=== PATIENT | male | born 1965 | race Caucasian/White ===

== ENCOUNTER 2020-02-21 07:39 | Emergency (ER) | payer SELFPAY ==
--- NOTE | 2020-02-21 07:44 | XR_ITS ---
WS: [id number] PORTABLE CHEST HISTORY: cough/congestion COMPARISON: 04/28/2008 Lungs are clear and well expanded. No pleural effusion or pneumothorax. Cardiac size: Normal. Mediastinum/Aorta: Normal mediastinum. No osseous abnormality seen. XR/XR chest 1V portable [id number] IMPRESSION: Unremarkable portable chest.
--- NOTE | 2020-02-21 07:45 | W.ED.URI ---
HPI - URI/Sore Throat General: Chief Complaint: Upper Respiratory Infection Stated Complaint: cough/sent from work to be tested Time Seen by Provider: 02/21/20 07:44 Source: patient Mode of arrival: ambulatory Limitations: no limitations History of Present Illness: HPI Narrative: Patient is a 54-year-old male who presents to ED today with complaints of cough and congestion over the past 3 to 4 days. He has not been running fevers. He reports feeling short of breath with exertion but seems to be okay at rest. When asked about sick contacts he states he has 2 grandchildren that have been sick with URI symptoms. Patient is an everyday smoker. He has no medical conditions that he is aware of although admittedly does not routinely see a medical provider. He reports his cough produces a green phlegm. He has not had any recent travel. MD elicited complaint: cough and nasal congestion Onset (ago): day(s) Consistency: intermittent Description of mucous: green Able to tolerate fluids by mouth: Yes Exacerbating factors: exertion Relieving factors: rest Context: sick contacts (grandchildren) Associated symptoms: Reports nasal congestion and sinus pain; Deny abdominal pain, chills, chest pain, diarrhea, ear or mastoid pain, fever(s), headache(s), nausea or vomiting Treatments prior to arrival: none Review of Systems General: Reports: 10 or more systems reviewed and unremarkable except in HPI and below Const: Denies: fever, chills, body aches, change in appetite, change in weight, fatigue or malaise Eyes: Denies: change in vision, blurry vision or photophobia ENMT: Reports: nasal discharge, nasal congestion and facial/sinus pain; Denies: throat pain, enlarged tonsils, painful swallowing, mouth pain, swelling of lips/tongue, oral sores/lesions, ear pain or ear discharge Card: Reports: shortness of breath on exertion; Denies: chest pain, palpitations, irregular heart rhythm, edema, swelling of feet/ankles, lightheadedness, syncope, pre-syncope, shortness of breath when lying down, leg pain with exertion or bluish discoloration of hands/feet Resp: Reports: shortness of breath (only with exertion ), productive cough, change in phlegm color and chest congestion; Denies: pain on inspiration or coughing up blood GI: Denies: abdominal pain, nausea, vomiting or diarrhea : Denies: flank pain, difficulty urinating, painful urination, urinary frequency, urinary urgency or urinary hesitancy Musc: Denies: neck pain or back pain Skin/Breast: Denies: rash Neuro: Denies: headache, numbness in extremities, weakness in extremities or changes in sensation PFSH ED PFSH: Social History Smoking and tobacco status: current every day smoker Physical Exam Const: COMMON NORMALS: no apparent distress, average body habitus, oriented x3, no limitations, healthy appearing, alert and well nourished HENMT: COMMON NORMALS: normocephalic, head/scalp atraumatic, hearing grossly normal bilaterally, external ears normal, EAC's normal, TM's normal bilaterally, external nose normal, moist oral mucous membranes and oropharynx normal HEAD & SCALP: normal to inspection, normocephalic and atraumatic FACE & SINUS: sinus tenderness (mild bilateral maxillary ) NOSE: external nose normal and nasal discharge EXTERNAL EAR: Yes external ears normal EXTERNAL AUDITORY CANAL: EAC's normal TYMPANIC MEMBRANE: TM's normal bilaterally MOUTH: oral and palatal mucosa normal, lip normal and tongue normal THROAT: posterior oropharynx normal, tonsils normal and uvula midline Eye: COMMON NORMALS: PERRL, EOMs intact bilaterally and conjunctivae normal CONJUNCTIVA: Yes conjunctivae normal PUPIL: Yes PERRL Neck/C-Spine: COMMON NORMALS: no lymphadenopathy Chest: COMMONS NORMALS: inspection of chest normal and palpation of chest normal Resp: COMMON NORMALS: normal respiratory effort and clear to auscultation bilaterally AUSCULTATION: clear to auscultation bilaterally OTHER: productive cough noted Cardio: COMMON NORMALS: regular rate and regular rhythm RATE: regular rate RHYTHM: regular rhythm GI: COMMON NORMALS: normal to inspection, nondistended, normoactive bowel sounds, soft to palpation, non-tender, no hepatosplenomegaly and no masses PALPATION: Yes soft and Yes no hepatosplenomegaly Extremity: COMMON NORMALS: normal to inspection Neuro: COMMON NORMALS: oriented x3 SENSORIUM/ORIENTATION: Yes alert Skin: COMMON NORMALS: no rashes or lesions noted GENERAL SKIN EXAM: no rashes or lesions noted Course Vital Signs: Vital signs: Vital Signs Temperature 97.6 F 02/21/20 07:46 Pulse Rate 95 02/21/20 09:49 Respiratory Rate 20 H 02/21/20 08:45 Blood Pressure 126/74 02/21/20 09:49 Pulse Oximetry 95 02/21/20 09:49 MDM - URI/Sore Throat MDM Narrative: Medical decision making narrative: Patient does not meet CDC/state criteria for COVID-19 testing. His CXR is normal. On patient's blood work he does have a glucose of over 400. Patient admitting we never goes to see a medical provider. His symptoms today seem unrelated to this. I will go ahead and start him on metformin for his newly diagnosed diabetes and case management has already started working on getting him a primary care follow-up. Patient has a nebulizer he may use at home-we will go ahead and write him for albuterol vials. Recommend self quarantine x2 weeks. Lab Data: Labs: Lab Results 02/21/20 02/21/20 02/21/20 Range/Units 08:16 08:45 08:45 WBC 8.2 (4.0-10.0) 10^3/ uL RBC 5.43 H (4.1-5.3) 10^6/u L Hgb 16.8 H (11.7-16.6) g/dL Hct 48.3 (42.0-52.0) % MCV 89.0 (80-94) fL MCH 30.9 (28.0-34.0) pg MCHC 34.8 (30.0-36.0) g/dL RDW 12.5 (12.1-15.1) % Plt Count 275 (130-400) 10^3/c mm MPV 10.7 H (7.4-10.4) fL Neut % (Auto) 56.4 % Lymph % (Auto) 34.0 % [place] % (Auto) 7.2 % Eos % (Auto) 1.6 % Baso % (Auto) 0.4 % Neut # (Auto) 4.6 (1.8-7.7) 10^3/u L Lymph # (Auto) 2.8 (0.8-4.8) 10^3/u L [place] # (Auto) 0.6 (0.2-0.9) 10^3/u L Eos # (Auto) 0.1 (0.0-0.8) 10^3/u L Baso # (Auto) 0.0 (0.0-0.1) 10^3/u L Nucleated RBC % (a uto) 0 % Nucleated RBCs # 0.0 /100WBC Sodium 128 L (136-145) mmol/L Potassium 5.0 (3.5-5.1) mmol/L Chloride 93 L (98-107) mmol/L Carbon Dioxide 22 (22-29) mmol/L Anion Gap 18.0 (5-19) BUN 12 (6-20) mg/dL Creatinine 0.8 (0.7-1.2) mg/dL GFR Calculation 100.7 (90-130) mL/min Glucose 456 H (65-115) mg/dL Calculated Osmolal ity 282 L (285-295) mOsm/k g Calcium 9.6 (8.5-10.5) mg/dL Total Bilirubin 0.2 (0.15-1.2) mg/dL AST 20 (0-40) U/L ALT 22 (0-41) U/L Alkaline Phosphata se 111 (40-130) IU/L Total Protein 7.1 (6.6-8.7) g/dL Albumin 4.1 (3.5-5.2) g/dL Globulin 3.0 (1.3-4.6) g/dL Influenza Type A A g Negative (Negative) POC Influenza B Ag Negative (Negative) Imaging Data^: CXR: Radiologist's impression: [address] [address] XRay Report Signed Patient: Celestino Romero Unit #: [id number] : 1965 Age/Sex: 54 / M ADM Date: 02/21/20 Loc: ER Room/Bed: Attending Dr: Ordering Provider/Ordering MD: Lilia Cleary Date of Service: 02/21/20 Procedure(s): XR chest 1V portable [id number] Accession Number(s): [id number] Report Number: [id number] WS: [id number] PORTABLE CHEST HISTORY: cough/congestion COMPARISON: 04/28/2008 Lungs are clear and well expanded. No pleural effusion or pneumothorax. Cardiac size: Normal. Mediastinum/Aorta: Normal mediastinum. No osseous abnormality seen. XR/XR chest 1V portable [id number] IMPRESSION: Unremarkable portable chest. Dictated By: Clau Mcclain DO Signed By: Clau Mcclain DO Signed Date/Time: 02/21/20806 DD/ 4 Discharge Plan Discharge Patient Disposition: Home, Self-Care Clinical Impression: Bronchitis, Diabetes mellitus, new onset Condition: Stable Prescriptions: New albuterol sulfate 1.25 mg/3 mL solution for nebulization 1.25 mg INHALATION Q6H PRN (Reason: shortness of breath or wheezing) Qty: 75 RF: 0 metformin 1,000 mg tablet 1,000 mg PO DAILY Qty: 30 RF: 0 Discharge Orders: Discharge Order (Routine); Ordered 02/21/20 Ordered By: Lilia Cleary Discharge Diet: Diabetic Discharge Activity: Increase activity as tolerated Patient Instructions: Diabetes Mellitus Type 2 in Adults (ED), Acute Bronchitis (ED) Activity Restrictions/Additional Instructions: As discussed you have been found to have diabetes with a blood sugar of over 400s here in the emergency department today. Will be started on medications for this but it is imperative that you follow-up with a primary care provider. Case management is working on setting you up with one. Your chest x-ray today looks good. Your influenza is negative. Again you do not meet CDC/state criteria for COVID-19 however based on your symptoms we still recommend that you go home and quarantine for 2 weeks. Discharge Date/Time: 02/21/20 09:49 Coding Level of Care Code ED Industrial Arts Teacher for Breezy Fwd Exam Comprehensive
[2020-02-21 07:46] VITALS: BP 133/79; PULSE 103; RESP 16; TEMP 36.4; O2SAT 97; BMI 24.9
[2020-02-21 07:53] VITALS: O2SAT 97
--- NOTE | 2020-02-21 07:56 | PC.NURSE ---
portable chest xray at bedside
[2020-02-21] MEDS: ipratropium-albuterol 3 mL Neb INHALATION (08:38)
[2020-02-21 08:39] VITALS: PULSE 101; RESP 22; O2SAT 97
[2020-02-21 08:45] VITALS: PULSE 103; RESP 20; O2SAT 97
[2020-02-21 08:46] LABS: Influenza A by IFA Negative (Negative); Influenza B by IFA Negative (Negative)
[2020-02-21 08:53] LABS: Basophils % 0.4 %; Eosinophils # 0.1 10^3/uL (0.0-0.8); Eosinophils % 1.6 %; Hematocrit 48.3 % (42.0-52.0); Hemoglobin 16.8 g/dL (11.7-16.6); Lymphocytes # 2.8 10^3/uL (0.8-4.8); Mean Corpuscular HGB Conc 34.8 g/dL (30.0-36.0); Mean Corpuscular Hemoglobin 30.9 pg (28.0-34.0); Mean Platelet Volume 10.7 fL (7.4-10.4); Monocytes # 0.6 10^3/uL (0.2-0.9); Monocytes % 7.2 %; Neutrophils # 4.6 10^3/uL (1.8-7.7); Neutrophils % 56.4 %; Nucleated Red Blood Cells % 0 %; Platelet Count 275 10^3/cmm (130-400); Red Blood Count 5.43 10^6/uL (4.1-5.3); Red Cell Distribution Width 12.5 % (12.1-15.1); White Blood Count 8.2 10^3/uL (4.0-10.0)
[2020-02-21 09:30] LABS: Albumin Level 4.1 g/dL (3.5-5.2); Alkaline Phosphatase 111 IU/L (40-130); Blood Urea Nitrogen 12 mg/dL (6-20); Calcium 9.6 mg/dL (8.5-10.5); Carbon Dioxide 22 mmol/L (22-29); Chloride 93 mmol/L (98-107); Glomerular Filtration Rate 100.7 mL/min (90-130); Glucose 456 mg/dL (65-115); Osmolality Calculated 282 mOsm/kg (285-295); Total Bilirubin 0.2 mg/dL (0.15-1.2); Total Protein 7.1 g/dL (6.6-8.7)
[2020-02-21 09:31] LABS: Alanine Aminotransferase 22 U/L (0-41); Aspartate Amino Transferase 20 U/L (0-40)
[2020-02-21 09:32] LABS: Sodium 128 mmol/L (136-145)
[2020-02-21 09:49] VITALS: BP 126/74; PULSE 95; O2SAT 95
--- NOTE | 2020-02-21 10:40 | DCPLANNER ---
contract project manager was asked to speak with patient about getting established with a primary care physician. contract project manager spoke with patient, he stated that he does not have a primary care physician. Patient also stated that he does not have insurance at this time. contract project manager gave patient both of the financial aide applications to fill out and turn back in. contract project manager [place] [facility] with Ofelia, a follow up appointment was scheduled for Friday, February 28, 2020 at 10:00 with INTAKE CLINICIAN, Kenia Gottlieb. contract project manager called patient with appointment information. Patient stated that he would attend the appointment.
== END 2020-02-21 09:49 | disposition home or self-care (01) ==
PROVIDERS: Emergency Provider Physician Assistant
DX: J40 Bronchitis, not specified as acute or chronic (principal); E11.9 Type 2 diabetes mellitus without complications; F17.200 Nicotine dependence, unspecified, uncomplicated
CPT/HCPCS: 12345; 36415; 71045; 80053; 85025; 87804; 94640; 99282; 99283

== ENCOUNTER 2020-10-10 11:44 | Emergency (ER) | payer SELFPAY ==
[2020-10-10 11:51] VITALS: BP 160/81; PULSE 103; RESP 18; TEMP 37; O2SAT 93; BMI 28.1
--- NOTE | 2020-10-10 12:08 | XR_ITS ---
WS: [id number] Portable AP upright chest, 10/10/2020 Clinical Data: dyspnea/cough Comparison: Portable chest, 02/21/2020. Findings: No nodules, masses or effusions are seen. The heart is normal. The pulmonary vascularity is not increased. No pneumonia or pneumothorax is seen. XR/XR chest 1V portable [id number] Impression: Negative chest.
--- NOTE | 2020-10-10 12:09 | ECG_ITS ---
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 Measurements Intervals [place] Rate: 102 P: 72 IN: 141 QRS: 76 QRSD: 85 T: 69 QT: 331 QTc: 432 Interpretive Statements SINUS TACHYCARDIA No previous ECG available for comparison Electronically Signed On 10-10-2020 16:09:52 RUBBER WORKER by Isaias Suárez M.D. [id number]
[2020-10-10 12:21] LABS: Basophils % 0.2 %; Eosinophils # 0.2 10^3/uL (0.0-0.8); Eosinophils % 2.3 %; Hematocrit 47.9 % (42.0-52.0); Hemoglobin 16.4 g/dL (11.7-16.6); Lymphocytes # 3.4 10^3/uL (0.8-4.8); Lymphocytes % 40.5 %; Mean Corpuscular HGB Conc 34.2 g/dL (30.0-36.0); Mean Corpuscular Hemoglobin 30.1 pg (28.0-34.0); Mean Corpuscular Volume 87.9 fL (80-94); Mean Platelet Volume 10.6 fL (7.4-10.4); Monocytes # 0.7 10^3/uL (0.2-0.9); Monocytes % 7.9 %; Neutrophils # 4.06 10^3/uL (1.8-7.7); Nucleated Red Blood Cells % 0 %; Platelet Count 303 10^3/cmm (130-400); Red Blood Count 5.45 10^6/uL (4.1-5.3); Red Cell Distribution Width 12.3 % (12.1-15.1); White Blood Count 8.3 10^3/uL (4.0-10.0)
--- NOTE | 2020-10-10 12:22 | ED_ITS ---
HPI - SOB/Dyspnea General: Chief Complaint: Shortness of Breath/Dyspnea Stated Complaint: Trouble Breathing Time Seen by Provider: 10/10/20 12:08 History of Present Illness: HPI Narrative: 54-year-old male presents emergency room complaining of shortness of breath. He has a history of shortness of breath that is extended throughout this past year he says is getting progressively worse. He had been using albuterol treatments that did not seem to be helping but he states he had a inhaler that did seem to help. He also reports having chest pressure heaviness associated with shortness of breath when he exerts himself. He states that doing such minimal ADLs is taking the trash out will cause severe shortness of breath and chest discomfort that will last 30 to 35 minutes that is resolved by rest. Does not radiate into the neck or arms and does not cause any nausea or diaphoresis. He also reports earlier this year having episodes of hematochezia which resolved spontaneously and he never had any evaluation for them. He is not had any having any hematochezia now. He denies any diarrhea. He does have a moderately productive cough. MD elicited complaint: shortness of breath, cough and chest pain Pertinent past history: COPD Onset (ago): month(s) Timing: intermittent Severity: severe Exacerbating factors: exertion and coughing Relieving factors: rest Known history of: COPD Associated symptoms: Reports chest pain and cough; Deny abdominal pain, chest congestion, diaphoresis, dizziness, extremity pain, fever(s), hemoptysis, lightheadedness, myalgias, nausea, orthopnea, palpitations, paresthesias, polydipsia, polyuria, rash, sense of impending doom, syncope or vomiting Treatment prior to arrival: bronchodilator Review of Systems Const: Denies: fever(s) or diaphoresis ENMT: Denies: throat pain, ear or mastoid pain, nasal discharge or nasal congestion Card: Reports: chest pain; Denies: palpitations, lightheadedness, syncope or orthopnea Resp: Denies: hemoptysis or chest congestion GI: Denies: abdominal pain, nausea or vomiting : Denies: flank pain, dysuria, urinary frequency or urinary urgency Musc: Denies: extremity pain Skin/Breast: Denies: rash or pruritus Neuro: Denies: dizziness Endo: Denies: polyuria or polydipsia PFSH ED PFSH: Medical History (Updated 10/12/20 @ 15:33 by Ken Schaffer DO) Diabetes Nicotine dependence Surgical History H/O hand surgery Family History (Updated 10/11/20 @ 01:57 by Michel Rice MD) Father Cancer Father had GI cancer, was diagnosed at age 60 Social History (Updated 10/11/20 @ 01:57 by Michel Rice MD) Smoking and tobacco status: current every day smoker Alcohol intake: never Substance/Drug Use: never Lives independently: Yes Housing: House Physical Exam Const: COMMON NORMALS: no acute distress GENERAL APPEARANCE: cooperative and comfortable ORIENTATION/CONSCIOUSNESS: Yes awake, Yes oriented to person, Yes oriented to place and Yes oriented to time HENMT: COMMON NORMALS: normocephalic, atraumatic and hearing grossly normal bilaterally HEAD & SCALP: normocephalic and atraumatic Neck/C-Spine: COMMON NORMALS: no JVD Resp: AUSCULTATION: rhonchi and wheezes Cardio: COMMON NORMALS: no JVD, regular rate, regular rhythm and No murmurs present (Cardio) RATE: regular rate RHYTHM: regular rhythm GI: COMMON NORMALS: Soft to palpation and No hepatosplenomegaly present AUSCULTATION: Yes normoactive bowel sounds PALPATION: Yes Soft to palpation, No Tenderness to palpation present (GI), No Guarding due to palpation present (GI) and Yes No hepatosplenomegaly present Extremity: COMMON NORMALS: normal to inspection, capillary refill normal, no clubbing, cyanosis or edema, no calf tenderness and no pedal edema Neuro: SENSORIUM/ORIENTATION: Yes oriented to person, Yes oriented to place and Yes oriented to time Skin: COMMON NORMALS: no rashes or lesions noted GENERAL SKIN EXAM: no rashes or lesions noted Course Vital Signs: Vital signs: Vital Signs Temperature 98.6 F 10/10/20 11:51 Pulse Rate 103 H 10/10/20 11:51 Respiratory Rate 18 10/10/20 11:51 Blood Pressure 160/81 10/10/20 11:51 Pulse Oximetry 93 10/10/20 11:51 MDM - SOB/Dyspnea MDM Narrative: Medical decision making narrative: Recommended admission for upper glycemia and shortness of breath would recommended that he be admitted patient refused. Discussed with him the possibility that he could worsen or even he states he understands and still wishes to go. Lab Data: Labs: Lab Results 10/10/20 10/10/20 10/10/20 Range/Units 12:00 12:00 12:00 WBC 8.3 (4.0-10.0) 10^3/ uL RBC 5.45 H (4.1-5.3) 10^6/u L Hgb 16.4 (11.7-16.6) g/dL Hct 47.9 (42.0-52.0) % MCV 87.9 (80-94) fL MCH 30.1 (28.0-34.0) pg MCHC 34.2 (30.0-36.0) g/dL RDW 12.3 (12.1-15.1) % Plt Count 303 (130-400) 10^3/c mm MPV 10.6 H (7.4-10.4) fL Neut % (Auto) 49.0 % Lymph % (Auto) 40.5 % [place] % (Auto) 7.9 % Eos % (Auto) 2.3 % Baso % (Auto) 0.2 % Neut # (Auto) 4.06 (1.8-7.7) 10^3/u L Lymph # (Auto) 3.4 (0.8-4.8) 10^3/u L [place] # (Auto) 0.7 (0.2-0.9) 10^3/u L Eos # (Auto) 0.2 (0.0-0.8) 10^3/u L Baso # (Auto) 0.0 (0.0-0.1) 10^3/u L Nucleated RBC % (a uto) 0 % Nucleated RBCs # 0.0 /100WBC Specimen Type Sample Site ABG pH (7.35-7.45) ABG pCO2 (35-45) mmHg ABG pO2 (80.0-100.0) mmH g ABG HCO3 (22-26) mmol/L ABG Base Excess (-2.0-2.0) mmol/ L Jay Test Hematocrit (42-52) % O2 Delivery Device FiO2 % Compensation Analyst ID Sodium 131 L (136-145) mmol/L Potassium 4.1 (3.5-5.1) mmol/L Chloride 92 L (98-107) mmol/L Carbon Dioxide 29 (22-29) mmol/L Anion Gap 14.1 (5-19) BUN 11 (6-20) mg/dL Creatinine 0.8 (0.7-1.2) mg/dL GFR Calculation 100.7 (90-130) mL/min Glucose 504 H* (65-115) mg/dL Calculated Osmolal ity 294 (285-295) mOsm/k g Calcium 9.7 (8.5-10.5) mg/dL Total Bilirubin 0.2 (0.15-1.2) mg/dL AST 14 (0-40) U/L ALT 18 (0-41) U/L Alkaline Phosphata se 127 (40-130) IU/L Troponin T Baselin e 14 (0-15) ng/L Troponin T 120 Min marcel (0-15) ng/L Delta Troponin T (0-10) ABS# Total Protein 7.5 (6.6-8.7) g/dL Albumin 4.3 (3.5-5.2) g/dL Globulin 3.2 (1.3-4.6) g/dL SARS-CoV-2 RNA (RT -PCR) (NOT DETECTED) 10/10/20 10/10/20 10/10/20 Range/Units 13:31 14:27 14:27 WBC (4.0-10.0) 10^3/ uL RBC (4.1-5.3) 10^6/u L Hgb (11.7-16.6) g/dL Hct (42.0-52.0) % MCV (80-94) fL MCH (28.0-34.0) pg MCHC (30.0-36.0) g/dL RDW (12.1-15.1) % Plt Count (130-400) 10^3/c mm MPV (7.4-10.4) fL Neut % (Auto) % Lymph % (Auto) % [place] % (Auto) % Eos % (Auto) % Baso % (Auto) % Neut # (Auto) (1.8-7.7) 10^3/u L Lymph # (Auto) (0.8-4.8) 10^3/u L [place] # (Auto) (0.2-0.9) 10^3/u L Eos # (Auto) (0.0-0.8) 10^3/u L Baso # (Auto) (0.0-0.1) 10^3/u L Nucleated RBC % (a uto) % Nucleated RBCs # /100WBC Specimen Type Arterial Sample Site Radial, left ABG pH 7.41 (7.35-7.45) ABG pCO2 47.6 H (35-45) mmHg ABG pO2 62.5 L (80.0-100.0) mmH g ABG HCO3 30.2 H (22-26) mmol/L ABG Base Excess 4.4 H (-2.0-2.0) mmol/ L Jay Test Pos Hematocrit 49.7 (42-52) % O2 Delivery Device Room air FiO2 21.0 % Compensation Analyst ID glc Sodium (136-145) mmol/L Potassium (3.5-5.1) mmol/L Chloride (98-107) mmol/L Carbon Dioxide (22-29) mmol/L Anion Gap (5-19) BUN (6-20) mg/dL Creatinine (0.7-1.2) mg/dL GFR Calculation (90-130) mL/min Glucose (65-115) mg/dL Calculated Osmolal ity (285-295) mOsm/k g Calcium (8.5-10.5) mg/dL Total Bilirubin (0.15-1.2) mg/dL AST (0-40) U/L ALT (0-41) U/L Alkaline Phosphata se (40-130) IU/L Troponin T Baselin e (0-15) ng/L Troponin T 120 Min marcel 8.70 (0-15) ng/L Delta Troponin T -5.30 L (0-10) ABS# Total Protein (6.6-8.7) g/dL Albumin (3.5-5.2) g/dL Globulin (1.3-4.6) g/dL SARS-CoV-2 RNA (RT -PCR) Not detected (NOT DETECTED) Discharge Plan Discharge Patient Disposition: Left Against Medical Advice Clinical Impression: Acute exacerbation of chronic obstructive airways disease, Diabetes, Hyperglycemia Prescriptions: No Action doxycycline monohydrate 100 mg Tablet 100 mg PO BID Qty: 14 RF: 0 Advair Diskus 250-50 mcg/dose blister with device 1 inh inhalation BID Qty: 60 RF: 0 Levemir FlexTouch U-100 Insuln 100 unit/mL (3 mL) insulin pen 20 unit SUBCUT QPM Qty: 15 RF: 0 metformin 500 mg tablet 500 mg PO BID Qty: 60 RF: 0 ipratropium-albuterol 0.5 mg-3 mg(2.5 mg base)/3 mL solution for nebulization 3 ml inhalation QID Qty: 180 RF: 0 Nicoderm CQ 21 mg/24 hr patch 24 hour 1 patch transdermal DAILY Qty: 28 RF: 0 (DME) blood-glucose meter Misc See Rx Instructions .ROUTE .MEDSUPPLY Qty: 1 RF: 0 Coding Level of Care Code ED Field Operator for Chg Fwd Exam Comprehensive
[2020-10-10 13:44] LABS: ABG PCO2 47.6 mmHg (35-45); ABG PH Result 7.41 (7.35-7.45); Arterial Blood Gas Hematocrit 49.7 % (42-52); Base Excess ABG 4.4 mmol/L (-2.0-2.0); Blood Gas Allen Test Pos; Blood Gas Operator Identificat glc; Blood Gas Sample Site Radial, left; Blood Gas Sample Type Arterial; HCO3 ABG 30.2 mmol/L (22-26); Oxygen Device ROOM AIR; PO2 ABG 62.5 mmHg (80.0-100.0)
--- NOTE | 2020-10-10 14:09 | ECG_ITS ---
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 Measurements Intervals [place] Rate: 89 P: 75 AR: 145 QRS: 70 QRSD: 89 T: 66 QT: 341 QTc: 416 Interpretive Statements SINUS RHYTHM Compared to ECG 10/10/2020 12:04:32 Sinus tachycardia no longer present Electronically Signed On 10-10-2020 17:25:31 SIX PACK PACKER by Isaias Suárez M.D. [id number]
[2020-10-10 14:26] LABS: Alanine Aminotransferase 18 U/L (0-41); Albumin Level 4.3 g/dL (3.5-5.2); Alkaline Phosphatase 127 IU/L (40-130); Anion Gap 14.1 (5-19); Aspartate Amino Transferase 14 U/L (0-40); Blood Urea Nitrogen 11 mg/dL (6-20); Calcium 9.7 mg/dL (8.5-10.5); Carbon Dioxide 29 mmol/L (22-29); Chloride 92 mmol/L (98-107); Globulin 3.2 g/dL (1.3-4.6); Glomerular Filtration Rate 100.7 mL/min (90-130); Osmolality Calculated 294 mOsm/kg (285-295); Potassium 4.1 mmol/L (3.5-5.1); Sodium 131 mmol/L (136-145); Total Bilirubin 0.2 mg/dL (0.15-1.2); Total Protein 7.5 g/dL (6.6-8.7)
[2020-10-10 14:28] LABS: Troponin(5th) Baseline 14 ng/L (0-15)
[2020-10-10 14:33] LABS: Glucose 504 mg/dL (65-115)
[2020-10-11 20:57] LABS: Quest SARS-CoV-2 RNA NOT DETECTED (NOT DETECTED)
== END 2020-10-10 16:39 | disposition left against medical advice (07) ==
PROVIDERS: Emergency Provider Family Medicine
DX: J44.1 Chronic obstructive pulmonary disease with (acute) exacerbation (principal); E11.65 Type 2 diabetes mellitus with hyperglycemia; Z79.4 Long term (current) use of insulin; F17.210 Nicotine dependence, cigarettes, uncomplicated
CPT/HCPCS: 12345; 36600; 71045; 80053; 82803; 84484; 85025; 87070; 87205; 87635; 93005; 96361; 96372; 99283

== ENCOUNTER 2020-10-10 19:40 | Observation (INO) | payer SELFPAY ==
[2020-10-10 20:07] VITALS: BP 161/90; PULSE 99; RESP 16; TEMP 36.4; O2SAT 96; BMI 26.6
--- NOTE | 2020-10-10 21:23 | XR_ITS ---
WS: [id number] Portable AP upright chest, 10/10/2020, 2152 hours. Clinical Data: Dyspnea Comparison: Portable chest, yesterday, 1226 hours. Findings: No nodules, masses or effusions are seen. The heart is normal. The pulmonary vascularity is not increased. No pneumonia or pneumothorax is seen. XR/XR chest 1V portable [id number] Impression: Negative chest.
--- NOTE | 2020-10-10 21:24 | ECG_ITS ---
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 Measurements Intervals [place] Rate: 100 P: 76 VA: 137 QRS: 73 QRSD: 89 T: 58 QT: 333 QTc: 429 Interpretive Statements SINUS TACHYCARDIA POSSIBLE LEFT ATRIAL ENLARGEMENT [-0.1mV P WAVE IN V1/V2] ABNORMAL RHYTHM ECG Compared to ECG 10/10/2020 13:53:55 Sinus rhythm no longer present Electronically Signed On 10-12-2020 20:10:41 COMPOUNDER HELPER by Isaias Suárez M.D. [id number]
[2020-10-10 21:49] VITALS: PULSE 96; RESP 22; O2SAT 93
[2020-10-10] MEDS: albuterol 8 gm MDI 6 PUFF INHALATION (21:49)
--- NOTE | 2020-10-10 21:49 | ED_ITS ---
HPI - SOB/Dyspnea General: Chief Complaint: Shortness of Breath/Dyspnea Stated Complaint: TROUBLE BREATHING, PT LEFT AND CAME BACK Time Seen by Provider: 10/10/20 21:26 Source: patient Mode of arrival: ambulatory Limitations: no limitations History of Present Illness: HPI Narrative: Mr. Romero is a 54-year-old male who comes in complaining of cough, shortness of breath and chest tightness. Patient was seen here earlier today for the same complaint but left AGAINST MEDICAL ADVICE as he had to go home to take care of animals. Please see that note by Dr. Schaffer for specific findings. Patient states he has a productive cough of colored sputum but no fever. He states that shortness of breath is so severe he cannot even do minimal of his daily activities without becoming severely short of breath. Exertion also makes him cough more makes his chest tight. Patient states that albuterol inhaler does help his symptoms more so than an nebulizer. Patient denies any leg pain or swelling. Denies history of blood clots or cardiac disease. Associated symptoms: Reports chest pain; Deny abdominal pain, diaphoresis, dizziness, extremity pain, fever(s), hemoptysis, lightheadedness, nausea, orthopnea, palpitations, syncope or vomiting Review of Systems Const: Denies: fever(s), chills, body aches, fatigue, malaise or diaphoresis Eyes: Denies: change in vision, blurry vision, photophobia, eye discomfort, eye discharge, eye redness or yellow eyes ENMT: Denies: throat pain, odynophagia, hoarseness, swelling of lips/tongue, ear or mastoid pain, ear discharge, change in hearing or nasal discharge Card: Reports: chest pain; Denies: palpitations, irregular heart rhythm, edema, lightheadedness, syncope, pre-syncope, dyspnea on exertion or orthopnea Resp: Reports: dyspnea, productive cough, non-productive cough and wheezing; Denies: hemoptysis GI: Denies: abdominal pain, nausea, vomiting, hematemesis, coffee ground emesis, heartburn, diarrhea, constipation, GI cramping, hematochezia or melena : Denies: flank pain, dysuria, urinary frequency, urinary urgency or hematuria Musc: Denies: neck pain, back pain, extremity pain, extremity swelling, joint pain, joint swelling, joint redness, joint warmth or joint stiffness Skin/Breast: Denies: rash, pruritus, erythema, skin pain or skin tenderness Neuro: Denies: headache(s), numbness in extremities, weakness in extremities, sensory changes, lack of coordination, difficulty walking, dizziness, vertigo, confusion, Slurred speech present or seizure-like activity Dino/Lymph: Denies: easy bruising, easy bleeding, petechiae, purpura or enlarged lymph nodes All/Imm: Denies: urticaria, throat swelling, tongue swelling, facial swelling or acute wheezing PFSH ED PFSH: Medical History Diabetes Surgical History H/O hand surgery Social History Smoking and tobacco status: current every day smoker Alcohol intake: never Physical Exam Const: COMMON NORMALS: no acute distress, patient oriented x3, no limitations and alert GENERAL APPEARANCE: cooperative HENMT: COMMON NORMALS: normocephalic, atraumatic, external ears normal, EAC's normal and Normal external nose present HEAD & SCALP: normal to inspection, normocephalic and atraumatic FACE & SINUS: normal facial exam and face symmetric NOSE: Normal external nose present and Normal nares present EXTERNAL EAR: Yes external ears normal EXTERNAL AUDITORY CANAL: EAC's normal MOUTH: Normal oral and palatal mucosa present, lip normal and tongue normal Eye: COMMON NORMALS: Equal, round and reactive pupils present and conjunctivae normal GENERAL EYE: appearance normal, both eyes and all related structures ALIGNMENT: Yes alignment normal PERIORBITAL: periorbital findings normal EYELID: eyelids normal CONJUNCTIVA: Yes conjunctivae normal SCLERA: sclerae normal PUPIL: Yes Equal, round and reactive pupils present Neck/C-Spine: COMMON NORMALS: full ROM, no lymphadenopathy, supple, no meningeal signs and no JVD GENERAL: Yes normal visual inspection and Yes trachea midline Chest: COMMONS NORMALS: normal inspection of the chest and normal palpation of entire chest wall Resp: EFFORT & INSPECTION: Yes respiratory distress, Yes Actively coughing, Yes uses accessory muscles and Yes audible wheezes AUSCULTATION: rhonchi, wheezes and diminished lung sounds Cardio: COMMON NORMALS: no JVD, regular rate, regular rhythm, S1 normal heart sound present and S2 normal heart sound present RATE: regular rate RHYTHM: regular rhythm HEART SOUNDS: S1 normal heart sound present, S2 normal heart sound present, no click, no gallops, no murmurs and no rubs GI: COMMON NORMALS: Soft to palpation and No hepatosplenomegaly present PALPATION: Yes Soft to palpation, No Tenderness to palpation present (GI), No Guarding due to palpation present (GI), No Rigid due to palpation, Yes No hepatosplenomegaly present, No Hernia present, No Palpable mass present and No Pulsatile mass present : COMMON NORMALS: Yes no CVA tenderness BLADDER/KIDNEY EXAM: Yes no CVA tenderness Back/Pelvis: COMMON NORMALS: no CVA tenderness, thoracic and lumbar spine normal to inspection, no thoracic nor lumbar tenderness and thoraco-lumbar ROM normal Extremity: COMMON NORMALS: normal to inspection, full ROM, capillary refill normal, no joint enlargement, no clubbing, cyanosis or edema and no calf tenderness Neuro: COMMON NORMALS: patient oriented x3, CN's II-XII intact bilaterally, moves all extremities, no focal motor deficits and no sensory deficits noted SENSORIUM/ORIENTATION: Yes alert MENINGEAL SIGNS: Yes no meningeal signs SPEECH: speech normal Psych: COMMON NORMALS: mental status grossly normal, Normal thought process present, cooperative, normal affect, speech normal and activity/motor behavior normal SPEECH: Yes normal speech THOUGHT PROCESS: Normal thought process present Skin: COMMON NORMALS: no rashes or lesions noted, turgor normal, no jaundice, no petechiae and no mottling GENERAL SKIN EXAM: no rashes or lesions noted and turgor normal Course Vital Signs: Vital signs: Vital Signs Temperature 97.6 F 10/10/20 20:07 Pulse Rate 92 10/11/20 00:00 Respiratory Rate 21 H 10/11/20 00:00 Blood Pressure 128/80 10/11/20 00:00 Pulse Oximetry 90 10/11/20 00:00 MDM - SOB/Dyspnea Lab Data: Attestation: I reviewed the patient's lab results. Labs: Lab Results 10/10/20 10/10/20 10/10/20 Range/Units 00:03 23:05 23:05 WBC 9.7 (4.0-10.0) 10^3/ uL RBC 5.40 H (4.1-5.3) 10^6/u L Hgb 16.3 (11.7-16.6) g/dL Hct 47.6 (42.0-52.0) % MCV 88.1 (80-94) fL MCH 30.2 (28.0-34.0) pg MCHC 34.2 (30.0-36.0) g/dL RDW 12.3 (12.1-15.1) % Plt Count 321 (130-400) 10^3/c mm MPV 10.8 H (7.4-10.4) fL Neut % (Auto) 42.3 % Lymph % (Auto) 45.7 % [place] % (Auto) 8.9 % Eos % (Auto) 2.5 % Baso % (Auto) 0.4 % Neut # (Auto) 4.09 (1.8-7.7) 10^3/u L Lymph # (Auto) 4.4 (0.8-4.8) 10^3/u L [place] # (Auto) 0.9 (0.2-0.9) 10^3/u L Eos # (Auto) 0.2 (0.0-0.8) 10^3/u L Baso # (Auto) 0.0 (0.0-0.1) 10^3/u L Nucleated RBC % (a uto) 0 % Nucleated RBCs # 0.0 /100WBC PT 12.80 (12.1-14.9) SECO NDS INR 0.93 (0.8-1.2) Specimen Type Sample Site ABG pH (7.35-7.45) ABG pCO2 (35-45) mmHg ABG pO2 (80.0-100.0) mmH g ABG HCO3 (22-26) mmol/L ABG Base Excess (-2.0-2.0) mmol/ L Jay Test Hematocrit (42-52) % O2 Delivery Device Registered Nurse Ambulatory ID Sodium (136-145) mmol/L Potassium (3.5-5.1) mmol/L Chloride (98-107) mmol/L Carbon Dioxide (22-29) mmol/L Anion Gap (5-19) BUN (6-20) mg/dL Creatinine (0.7-1.2) mg/dL GFR Calculation (90-130) mL/min Glucose (65-115) mg/dL Calculated Osmolal ity (285-295) mOsm/k g Calcium (8.5-10.5) mg/dL Magnesium (1.7-2.3) mg/dL Total Bilirubin (0.15-1.2) mg/dL AST (0-40) U/L ALT (0-41) U/L Alkaline Phosphata se (40-130) IU/L Troponin T Baselin e (0-15) ng/L NT-Pro-B Natriuret Pep (0-125) pg/mL Total Protein (6.6-8.7) g/dL Albumin (3.5-5.2) g/dL Globulin (1.3-4.6) g/dL Urine Color (Yellow) Urine Appearance (CLEAR) Urine pH (5-7) Ur Specific Gravit y (1.005-1.030) Urine Protein (Negative) Urine Glucose (UA) (Normal) Urine Ketones (Negative) Urine Blood (Negative) Urine Nitrate (Negative) Urine Bilirubin (Negative) Urine Urobilinogen (Negative) mg/dL Ur Leukocyte Diana ase (Negative) Serum Ketones (Negative) SARS-CoV-2 Ag (Rap id) Negative (Negative) 10/10/20 10/10/20 10/10/20 Range/Units 23:05 23:05 23:28 WBC (4.0-10.0) 10^3/ uL RBC (4.1-5.3) 10^6/u L Hgb (11.7-16.6) g/dL Hct (42.0-52.0) % MCV (80-94) fL MCH (28.0-34.0) pg MCHC (30.0-36.0) g/dL RDW (12.1-15.1) % Plt Count (130-400) 10^3/c mm MPV (7.4-10.4) fL Neut % (Auto) % Lymph % (Auto) % [place] % (Auto) % Eos % (Auto) % Baso % (Auto) % Neut # (Auto) (1.8-7.7) 10^3/u L Lymph # (Auto) (0.8-4.8) 10^3/u L [place] # (Auto) (0.2-0.9) 10^3/u L Eos # (Auto) (0.0-0.8) 10^3/u L Baso # (Auto) (0.0-0.1) 10^3/u L Nucleated RBC % (a uto) % Nucleated RBCs # /100WBC PT (12.1-14.9) SECO NDS INR (0.8-1.2) Specimen Type Sample Site ABG pH (7.35-7.45) ABG pCO2 (35-45) mmHg ABG pO2 (80.0-100.0) mmH g ABG HCO3 (22-26) mmol/L ABG Base Excess (-2.0-2.0) mmol/ L Jay Test Hematocrit (42-52) % O2 Delivery Device Registered Nurse Ambulatory ID Sodium 133 L (136-145) mmol/L Potassium 4.2 (3.5-5.1) mmol/L Chloride 96 L (98-107) mmol/L Carbon Dioxide 26 (22-29) mmol/L Anion Gap 15.2 (5-19) BUN 12 (6-20) mg/dL Creatinine 0.6 L (0.7-1.2) mg/dL GFR Calculation 140.4 H (90-130) mL/min Glucose 335 H (65-115) mg/dL Calculated Osmolal ity 289 (285-295) mOsm/k g Calcium 9.3 (8.5-10.5) mg/dL Magnesium 2.2 (1.7-2.3) mg/dL Total Bilirubin 0.4 (0.15-1.2) mg/dL AST 15 (0-40) U/L ALT 17 (0-41) U/L Alkaline Phosphata se 107 (40-130) IU/L Troponin T Baselin e 10 (0-15) ng/L NT-Pro-B Natriuret Pep 30 (0-125) pg/mL Total Protein 6.9 (6.6-8.7) g/dL Albumin 4.5 (3.5-5.2) g/dL Globulin 2.4 (1.3-4.6) g/dL Urine Color Yellow (Yellow) Urine Appearance Clear (CLEAR) Urine pH 5.0 (5-7) Ur Specific Gravit y 1.015 (1.005-1.030) Urine Protein Neg (Negative) Urine Glucose (UA) 4+ H (Normal) Urine Ketones Negative (Negative) Urine Blood Neg (Negative) Urine Nitrate Negative (Negative) Urine Bilirubin Neg (Negative) Urine Urobilinogen Norm (Negative) mg/dL Ur Leukocyte Diana ase Negative (Negative) Serum Ketones Positive H (Negative) SARS-CoV-2 Ag (Rap id) (Negative) 10/11/20 Range/Units 00:37 WBC (4.0-10.0) 10^3/ uL RBC (4.1-5.3) 10^6/u L Hgb (11.7-16.6) g/dL Hct (42.0-52.0) % MCV (80-94) fL MCH (28.0-34.0) pg MCHC (30.0-36.0) g/dL RDW (12.1-15.1) % Plt Count (130-400) 10^3/c mm MPV (7.4-10.4) fL Neut % (Auto) % Lymph % (Auto) % [place] % (Auto) % Eos % (Auto) % Baso % (Auto) % Neut # (Auto) (1.8-7.7) 10^3/u L Lymph # (Auto) (0.8-4.8) 10^3/u L [place] # (Auto) (0.2-0.9) 10^3/u L Eos # (Auto) (0.0-0.8) 10^3/u L Baso # (Auto) (0.0-0.1) 10^3/u L Nucleated RBC % (a uto) % Nucleated RBCs # /100WBC PT (12.1-14.9) SECO NDS INR (0.8-1.2) Specimen Type Arterial Sample Site Brachial, right ABG pH 7.40 (7.35-7.45) ABG pCO2 47.5 H (35-45) mmHg ABG pO2 51.6 L (80.0-100.0) mmH g ABG HCO3 29.1 H (22-26) mmol/L ABG Base Excess 3.3 H (-2.0-2.0) mmol/ L Jay Test N/a Hematocrit 49.9 (42-52) % O2 Delivery Device Room air Registered Nurse Ambulatory ID Wei Sodium (136-145) mmol/L Potassium (3.5-5.1) mmol/L Chloride (98-107) mmol/L Carbon Dioxide (22-29) mmol/L Anion Gap (5-19) BUN (6-20) mg/dL Creatinine (0.7-1.2) mg/dL GFR Calculation (90-130) mL/min Glucose (65-115) mg/dL Calculated Osmolal ity (285-295) mOsm/k g Calcium (8.5-10.5) mg/dL Magnesium (1.7-2.3) mg/dL Total Bilirubin (0.15-1.2) mg/dL AST (0-40) U/L ALT (0-41) U/L Alkaline Phosphata se (40-130) IU/L Troponin T Baselin e (0-15) ng/L NT-Pro-B Natriuret Pep (0-125) pg/mL Total Protein (6.6-8.7) g/dL Albumin (3.5-5.2) g/dL Globulin (1.3-4.6) g/dL Urine Color (Yellow) Urine Appearance (CLEAR) Urine pH (5-7) Ur Specific Gravit y (1.005-1.030) Urine Protein (Negative) Urine Glucose (UA) (Normal) Urine Ketones (Negative) Urine Blood (Negative) Urine Nitrate (Negative) Urine Bilirubin (Negative) Urine Urobilinogen (Negative) mg/dL Ur Leukocyte Diana ase (Negative) Serum Ketones (Negative) SARS-CoV-2 Ag (Rap id) (Negative) Imaging Data^: CXR: Attestation: I personally reviewed and interpreted this imaging study as follows: My impression: No acute cardiopulmonary findings. EKG Data^: EKG 1: Attestation: I personally reviewed and interpreted this EKG as follows: EKG Interpretation Date: 10/10/20 EKG interpretation time: 21:52 Interpretation: Sinus tachycardia at 100 beats minute, normal axis, no blocks, normal intervals, no acute ST-T wave changes. Unchanged from previous. Discharge Plan Discharge Prescriptions: No Action albuterol sulfate 1.25 mg/3 mL solution for nebulization 1.25 mg INHALATION Q6H PRN (Reason: shortness of breath or wheezing) Qty: 75 RF: 0 Coding Level of Care Code ED Music Department Chair for Chg Fwd Exam Comprehensive
[2020-10-10 22:43] VITALS: BP 139/78; PULSE 95; RESP 24; O2SAT 92
--- NOTE | 2020-10-10 23:24 | ECG_ITS ---
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 Measurements Intervals [place] Rate: 98 P: 104 IN: 147 QRS: 154 QRSD: 86 T: 123 QT: 334 QTc: 427 Interpretive Statements SINUS RHYTHM ARM LEADS REVERSED [INVERTED P AND QRS IN I] Compared to ECG 10/10/2020 13:53:55 No significant changes Electronically Signed On 10-12-2020 20:24:01 WEED SCIENCE RESEARCH TECHNICIAN by Isaias Suárez M.D. [email or web address] [email or web address] Withselect [facility] [email or web address]/store/NU/[id number] f
[2020-10-10 23:34] VITALS: BP 130/71; PULSE 92; RESP 28; O2SAT 90
[2020-10-10 23:44] LABS: Add Urine Microscopic? NO
[2020-10-10 23:59] LABS: Basophils % 0.4 %; Eosinophils # 0.2 10^3/uL (0.0-0.8); Eosinophils % 2.5 %; Hematocrit 47.6 % (42.0-52.0); Hemoglobin 16.3 g/dL (11.7-16.6); Lymphocytes # 4.4 10^3/uL (0.8-4.8); Lymphocytes % 45.7 %; Mean Corpuscular HGB Conc 34.2 g/dL (30.0-36.0); Mean Corpuscular Hemoglobin 30.2 pg (28.0-34.0); Mean Corpuscular Volume 88.1 fL (80-94); Mean Platelet Volume 10.8 fL (7.4-10.4); Monocytes # 0.9 10^3/uL (0.2-0.9); Monocytes % 8.9 %; Neutrophils # 4.09 10^3/uL (1.8-7.7); Neutrophils % 42.3 %; Nucleated Red Blood Cells % 0 %; Platelet Count 321 10^3/cmm (130-400); Red Cell Distribution Width 12.3 % (12.1-15.1); White Blood Count 9.7 10^3/uL (4.0-10.0)
[2020-10-11] VITALS (14 sets, daily range): BP systolic 112–147; BP diastolic 71–82; PULSE 92–102; RESP 17–26; TEMP 36.4–36.8; O2SAT 87–94
[2020-10-11 00:03] LABS: Ketone (Acetest) Serum Positive (Negative)
[2020-10-11 00:04] LABS: INR 0.93 (0.8-1.2)
[2020-10-11 00:17] LABS: Troponin(5th) Baseline 10 ng/L (0-15)
[2020-10-11 00:24] LABS: SARS Covid-2 Antigen Negative (Negative)
[2020-10-11 00:25] LABS: Alanine Aminotransferase 17 U/L (0-41); Albumin Level 4.5 g/dL (3.5-5.2); Alkaline Phosphatase 107 IU/L (40-130); Anion Gap 15.2 (5-19); Aspartate Amino Transferase 15 U/L (0-40); Blood Urea Nitrogen 12 mg/dL (6-20); Calcium 9.3 mg/dL (8.5-10.5); Carbon Dioxide 26 mmol/L (22-29); Chloride 96 mmol/L (98-107); Globulin 2.4 g/dL (1.3-4.6); Glomerular Filtration Rate 140.4 mL/min (90-130); Glucose 335 mg/dL (65-115); Magnesium 2.2 mg/dL (1.7-2.3); NT Pro B Type Natriuretic Pept 30 pg/mL (0-125); Osmolality Calculated 289 mOsm/kg (285-295); Potassium 4.2 mmol/L (3.5-5.1); Sodium 133 mmol/L (136-145); Total Bilirubin 0.4 mg/dL (0.15-1.2); Total Protein 6.9 g/dL (6.6-8.7)
[2020-10-11 00:30] LABS: Bilirubin Urine Neg (Negative); Blood Urine Neg (Negative); Glucose Urine UA 4+ (Normal); Ketones Urine Negative (Negative); Leukocyte Esterase Urine Negative (Negative); Nitrate Urine Negative (Negative); Protein Urine Neg (Negative); Specific Gravity, Urine 1.015 (1.005-1.030); Urine Appearance Clear (CLEAR); Urine Color Yellow (Yellow); Urobilinogen Urine Norm (Negative)
[2020-10-11 00:37] LABS: ABG PCO2 47.5 mmHg (35-45); Arterial Blood Gas Hematocrit 49.9 % (42-52); Base Excess ABG 3.3 mmol/L (-2.0-2.0); Blood Gas Sample Site Brachial, right; Blood Gas Sample Type Arterial; HCO3 ABG 29.1 mmol/L (22-26); Oxygen Device ROOM AIR; PO2 ABG 51.6 mmHg (80.0-100.0)
[2020-10-11 00:52] LABS: Troponin 5 2HR 9.01 ng/L (0-15)
--- NOTE | 2020-10-11 01:00 | PM.HP ---
Providers/Chief Complaint Chief Complaint: TROUBLE BREATHING, PT LEFT AND CAME BACK History of Present Illness Celestino Romero is a 54 year old male who carries history of diabetes came in with chief complaint of worsening shortness of breath. Patient was recently diagnosed with type 2 diabetes, he is not able to afford equipment to check his blood sugar at home, recently his Metformin was discontinued secondary to diarrhea. He has been using albuterol at home for his shortness of breath. Patient is stating that for last few months he has been experiencing shortness of breath on exertion, he has had presyncopal events when he went outside to check his mail, never experienced syncope. He smoking about half a pack a day. He has not noticed chest pain, fever, nausea, vomiting swelling of lower extremities. He considers himself active for his age. Mostly in the morning he experiences productive cough, white-colored sputum which has recently changed to greenish sputum. He has been having increased bouts of cough. No recent diarrhea or fever. He was seen in the ER in the morning, after initial work-up he decided to leave AGAINST MEDICAL ADVICE, he came back to the evening because of worsening shortness of breath. Diagnosis in the ER revealed normal hemodynamics, normal CBC and blood work, his symptoms resolved quickly after getting 6 puffs of albuterol. Covid antigen negative, I have requested D-dimer. Blood gas shows hypoxic respiratory failure. At the time evaluation no acute respiratory distress, he was saturating well on room air. Review of Systems Const: Reports: body aches and fatigue; Denies: fever(s) or chills Eyes: Denies: change in vision ENMT: Denies: throat pain Card: Denies: chest pain Resp: Reports: dyspnea and productive cough GI: Denies: abdominal pain : Denies: flank pain Musc: Denies: neck pain Skin/Breast: Denies: rash Neuro: Denies: headache(s) Psych: Denies: anxiety Endo: Denies: polyuria Dino/Lymph: Denies: easy bruising All/Imm: Denies: urticaria Medications/Allergies Home Medications Medication Instructions Recorded Confirmed Last Taken Type albuterol sulfate 1.25 mg INHALATION Q6H PRN #75 ml 02/21/20 10/10/20 10/10/20 Rx Allergies Allergy/AdvReac Type Severity Reaction Status Date / Time No Known Allergies Allergy Verified 10/10/20 11:53 PFSH Acute PFSH: Medical History (Updated 10/11/20 @ 01:55 by Michel Rice MD) Diabetes Nicotine dependence Surgical History H/O hand surgery Family History (Updated 10/11/20 @ 01:57 by Michel Rice MD) Father Cancer Father had GI cancer, was diagnosed at age 60 Social History (Updated 10/11/20 @ 01:57 by Michel Rice MD) Smoking and tobacco status: current every day smoker Alcohol intake: never Substance/Drug Use: never Lives independently: Yes Housing: House Vitals/I&O/Wt Last Vital Signs Temp 97.6 F 10/10/20 20:07 Pulse 96 10/11/20 00:53 Resp 25 H 10/11/20 00:53 BP 147/82 10/11/20 00:53 Pulse Ox 92 10/11/20 00:53 Weight last 48 hrs Weight 77.111 kg Physical Exam Narrative: EXAM NARRATIVE: Middle-age male was sitting at the bedside when I entered the room was saturating well on room air no active respiratory distress Appears stated age No active chest pain S1, S2 sinus tachycardia no sign of heart failure Abdomen soft nontender bowel sound present Bilateral breath sounds without active wheezing or crackles EOMI, PERRLA Neurologically no focal deficit GCS 15, Appropriate mood and affect No digital clubbing Lower extremity no edema appreciated Data : 10/10/20 23:05 10/10/20 23:05 A&P Assessment and plan (1) Acute respiratory failure with hypoxia: Status: Acute (2) Nicotine dependence: Status: Acute (3) Diabetes: Status: Acute Qualifiers: Diabetes mellitus type: type 2 Diabetes mellitus [facility] insulin use: without [facility] use Diabetes mellitus complication status: without complication Qualified Code(s): E11.9 - Type 2 diabetes mellitus without complications (4) Hyperglycemia: Status: Acute Additional A&P Information Acute hypoxic respiratory failure with underlying undiagnosed COPD Patient is an active smoker, need to rule out PE, I have requested D-dimer Relative hypoxia on room air evident on blood gas I would not initiate steroids at this point, would keep him on doxycycline for excessive bouts of cough Covid antigen negative DuoNeb every 4 as needed, no need of prednisone no active wheezing He would definitely benefit from outpatient pulmonology close follow-up. Home O2 evaluation in the morning Hyperglycemia without DKA Ketones positive but he is not acidotic, normal anion gap, would start moderate sliding scale, check A1c level, patient is stating that he was started on Metformin for recently diagnosed type 2 diabetes, he is not checking his blood sugar because he is not able to afford the equipment however it will cost less than $20 at [facility] Nicotine dependence: Counseled extensively on smoking cessation and its benefits explained to the patient Will need reinforcement Full code DVT prophylaxis Lovenox Cardiac diet Attestations Medical Necessity Statement*: Second visit in the ER today, responsive to albuterol treatment, I am anticipating he will be discharged in less than 48 hours currently need glucose management, will need home O2 evaluation Time Spent in Patient Care: (>than 50% of time spent in counselling and/or direct pt care on unit). 40mins Coding Level of Care Code Acute Property Clerk for [place] Diagnoses Acute respiratory failure with hypoxia J96.01 Nicotine dependence F17.200 Diabetes E11.9 Diabetes mellitus type: type 2 Diabetes mellitus terminal superintendent insulin use: without terminal superintendent use Diabetes mellitus complication status: without complication Hyperglycemia R73.9
[2020-10-11 01:31] LABS: D Dimer <= 0.27 ug/mIFEU (0-0.59)
--- NOTE | 2020-10-11 01:52 | PC.NURSE ---
Patient placed on 2L oxygen via nasal cannula. Oxygen dropped to 87%.
[2020-10-11 03:42] LABS: Glucose Point of Care 452 mg/dL (70-110)
[2020-10-11 05:51] LABS: Estmated Average Glucose 306; Hemoglobin A1C 12.3 % (4.0-6.0)
[2020-10-11 06:05] LABS: Anion Gap 18.9 (5-19); Blood Urea Nitrogen 15 mg/dL (6-20); Calcium 9.7 mg/dL (8.5-10.5); Carbon Dioxide 25 mmol/L (22-29); Chloride 95 mmol/L (98-107); Glomerular Filtration Rate 117.5 mL/min (90-130); Glucose 478 mg/dL (65-115); Osmolality Calculated 300 mOsm/kg (285-295); Potassium 4.9 mmol/L (3.5-5.1); Sodium 134 mmol/L (136-145)
[2020-10-11 07:28] LABS: Glucose Point of Care 361 mg/dL (70-110)
[2020-10-11] MEDS: benzonatate 100 mg Capsule PO (09:03)
[2020-10-11] MEDS: doxycycline 100 mg Tablet PO (09:03)
[2020-10-11 11:33] LABS: Glucose Point of Care 427 mg/dL (70-110)
[2020-10-11 11:33] LABS: Glucose Point of Care 387 mg/dL (70-110)
--- NOTE | 2020-10-11 12:12 | P.DS_ITS ---
Discharge Providers Date of Admission: 10/11/20 01:47 Date of Discharge: October 11, 2020 Attending Provider at Admission: Michel Rice MD Attending Provider at Discharge: Benoit Razo MD Diagnoses at Discharge Discharge Diagnosis (1) Acute respiratory failure with hypoxia: Status: Acute (2) Nicotine dependence: Status: Acute (3) Diabetes: Status: Acute Qualifiers: Diabetes mellitus type: type 2 Diabetes mellitus assisted insulin use: without assisted use Diabetes mellitus complication status: without complication Qualified Code(s): E11.9 - Type 2 diabetes mellitus without complications (4) Hyperglycemia: Status: Acute Reason for Visit Reason for Visit: TROUBLE BREATHING, PT LEFT AND CAME BACK Hospital Course Hospital Course Celestino is a 54-year-old white male who presented to the emergency department with shortness of breath. He reported it was more severe, in the last several days but for many months he has had wheezing, and dyspnea. He believes he has COPD. He got an inhaler which helped for quite a bit through urgent care but still feels as if he is not getting enough air. He denied any fever. On admission pulmonary toilet was initiated. Laboratory demonstrated markedly elevated calixto gar, and hemoglobin A1c was checked and elevated at 12.3 consistent with diabetes. Rapid Covid was negative. No significant anion gap on BMP. Chest x- ray no infiltrate. Dimer was not detectable. Troponin not elevated. He reported that he would not stay at the hospital, that he had animals to get home to 10 to. I discussed with him that would be better to stay at the hospital to get control of his breathing issues and diabetes. However, considering he reports he will leave against advice if he needs to I will discharge him today after discussing the risks and benefits. At least this will facilitate follow- up and medication he needs on discharge. Physical Exam Narrative: EXAM NARRATIVE: General exam is no apparent distress Cardiovascular regular in rhythm without murmur Lungs diminished breath sounds bilaterally but few wheezes Abdomen is soft nontender with positive bowel sounds Extremities no cyanosis clubbing or edema Discharge Data Data Completed and Pending: Completed Studies During Hospitalization Category Date Time Status XR chest 1V dayron ble [id number] Stat Exams 10/10/20 21:23 Completed Labs from last 24 hours 10/11/20 10/11/20 10/11/20 11:17 11:15 07:26 WBC RBC Hgb Hct MCV MCH MCHC RDW Plt Count MPV Neut % (Auto) Lymph % (Auto) Collier % (Auto) Eos % (Auto) Baso % (Auto) Neut # (Auto) Lymph # (Auto) Collier # (Auto) Eos # (Auto) Baso # (Auto) Nucleated RBC % (a uto) Nucleated RBCs # PT INR D-Dimer Specimen Type Sample Site ABG pH ABG pCO2 ABG pO2 ABG HCO3 ABG Base Excess Jay Test Hematocrit O2 Delivery Device New Autos Delivery Driver ID Sodium Potassium Chloride Carbon Dioxide Anion Gap BUN Creatinine GFR Calculation Glucose POC Glucose 387 [id number] Estimat Average Gl ucose Hemoglobin A1c Calculated Osmolal ity Lactic Acid Calcium Magnesium Total Bilirubin AST ALT Alkaline Phosphata se Troponin T Baselin e Troponin T 120 Min little traverse Delta Troponin T Troponin T Hi Sens 6Hr Troponin T Hi Sens 6Hr Delta NT-Pro-B Natriuret Pep Total Protein Albumin Globulin Urine Color Urine Appearance Urine pH Ur Specific Gravit y Urine Protein Urine Glucose (UA) Urine Ketones Urine Blood Urine Nitrate Urine Bilirubin Urine Urobilinogen Ur Leukocyte Diana ase Serum Ketones SARS-CoV-2 Ag (Rap id) 10/11/20 10/11/20 10/11/20 03:40 03:40 03:40 WBC RBC Hgb Hct MCV MCH MCHC RDW Plt Count MPV Neut % (Auto) Lymph % (Auto) Collier % (Auto) Eos % (Auto) Baso % (Auto) Neut # (Auto) Lymph # (Auto) Collier # (Auto) Eos # (Auto) Baso # (Auto) Nucleated RBC % (a uto) Nucleated RBCs # PT INR D-Dimer Specimen Type Sample Site ABG pH ABG pCO2 ABG pO2 ABG HCO3 ABG Base Excess Jay Test Hematocrit O2 Delivery Device New Autos Delivery Driver ID Sodium 134 L Potassium 4.9 Chloride 95 L Carbon Dioxide 25 Anion Gap 18.9 BUN 15 Creatinine 0.7 GFR Calculation 117.5 Glucose 478 H POC Glucose 452 Estimat Average Gl ucose 306 Hemoglobin A1c 12.3 H Calculated Osmolal ity 300 H Lactic Acid Calcium 9.7 Magnesium Total Bilirubin AST ALT Alkaline Phosphata se Troponin T Baselin e Troponin T 120 Min little traverse Delta Troponin T Troponin T Hi Sens 6Hr Troponin T Hi Sens 6Hr Delta NT-Pro-B Natriuret Pep Total Protein Albumin Globulin Urine Color Urine Appearance Urine pH Ur Specific Gravit y Urine Protein Urine Glucose (UA) Urine Ketones Urine Blood Urine Nitrate Urine Bilirubin Urine Urobilinogen Ur Leukocyte Diana ase Serum Ketones SARS-CoV-2 Ag (Rap id) 10/11/20 10/11/20 10/11/20 03:40 01:05 00:37 WBC RBC Hgb Hct MCV MCH MCHC RDW Plt Count MPV Neut % (Auto) Lymph % (Auto) Collier % (Auto) Eos % (Auto) Baso % (Auto) Neut # (Auto) Lymph # (Auto) Collier # (Auto) Eos # (Auto) Baso # (Auto) Nucleated RBC % (a uto) Nucleated RBCs # PT INR D-Dimer <= 0.27 Specimen Type Arterial Sample Site Brachial, right ABG pH 7.40 ABG pCO2 47.5 H ABG pO2 51.6 L ABG HCO3 29.1 H ABG Base Excess 3.3 H Jay Test N/a Hematocrit 49.9 O2 Delivery Device Room air New Autos Delivery Driver ID Hinja Sodium Potassium Chloride Carbon Dioxide Anion Gap BUN Creatinine GFR Calculation Glucose POC Glucose Estimat Average Gl ucose Hemoglobin A1c Calculated Osmolal ity Lactic Acid Calcium Magnesium Total Bilirubin AST ALT Alkaline Phosphata se Troponin T Baselin e Troponin T 120 Min little traverse Delta Troponin T Troponin T Hi Sens 6Hr 8.70 Troponin T Hi Sens 6Hr Delta -1.30 L NT-Pro-B Natriuret Pep Total Protein Albumin Globulin Urine Color Urine Appearance Urine pH Ur Specific Gravit y Urine Protein Urine Glucose (UA) Urine Ketones Urine Blood Urine Nitrate Urine Bilirubin Urine Urobilinogen Ur Leukocyte Diana ase Serum Ketones SARS-CoV-2 Ag (Rap id) 10/10/20 10/10/20 10/10/20 23:28 23:05 23:05 WBC RBC Hgb Hct MCV MCH MCHC RDW Plt Count MPV Neut % (Auto) Lymph % (Auto) Collier % (Auto) Eos % (Auto) Baso % (Auto) Neut # (Auto) Lymph # (Auto) Collier # (Auto) Eos # (Auto) Baso # (Auto) Nucleated RBC % (a uto) Nucleated RBCs # PT INR D-Dimer Specimen Type Sample Site ABG pH ABG pCO2 ABG pO2 ABG HCO3 ABG Base Excess Jay Test Hematocrit O2 Delivery Device New Autos Delivery Driver ID Sodium 133 L Potassium 4.2 Chloride 96 L Carbon Dioxide 26 Anion Gap 15.2 BUN 12 Creatinine 0.6 L GFR Calculation 140.4 H Glucose 335 H POC Glucose Estimat Average Gl ucose Hemoglobin A1c Calculated Osmolal ity 289 Lactic Acid Calcium 9.3 Magnesium 2.2 Total Bilirubin 0.4 AST 15 ALT 17 Alkaline Phosphata se 107 Troponin T Baselin e 10 Troponin T 120 Min little traverse Delta Troponin T Troponin T Hi Sens 6Hr Troponin T Hi Sens 6Hr Delta NT-Pro-B Natriuret Pep 30 Total Protein 6.9 Albumin 4.5 Globulin 2.4 Urine Color Yellow Urine Appearance Clear Urine pH 5.0 Ur Specific Gravit y 1.015 Urine Protein Neg Urine Glucose (UA) 4+ H Urine Ketones Negative Urine Blood Neg Urine Nitrate Negative Urine Bilirubin Neg Urine Urobilinogen Norm Ur Leukocyte Diana ase Negative Serum Ketones Positive H SARS-CoV-2 Ag (Rap id) 10/10/20 10/10/20 10/10/20 23:05 23:05 00:22 WBC 9.7 RBC 5.40 H Hgb 16.3 Hct 47.6 MCV 88.1 MCH 30.2 MCHC 34.2 RDW 12.3 Plt Count 321 MPV 10.8 H Neut % (Auto) 42.3 Lymph % (Auto) 45.7 Collier % (Auto) 8.9 Eos % (Auto) 2.5 Baso % (Auto) 0.4 Neut # (Auto) 4.09 Lymph # (Auto) 4.4 Collier # (Auto) 0.9 Eos # (Auto) 0.2 Baso # (Auto) 0.0 Nucleated RBC % (a uto) 0 Nucleated RBCs # 0.0 PT 12.80 INR 0.93 D-Dimer Specimen Type Sample Site ABG pH ABG pCO2 ABG pO2 ABG HCO3 ABG Base Excess Jay Test Hematocrit O2 Delivery Device New Autos Delivery Driver ID Sodium Potassium Chloride Carbon Dioxide Anion Gap BUN Creatinine GFR Calculation Glucose POC Glucose Estimat Average Gl ucose Hemoglobin A1c Calculated Osmolal ity Lactic Acid Calcium Magnesium Total Bilirubin AST ALT Alkaline Phosphata se Troponin T Baselin e Troponin T 120 Min little [place] 9.01 Delta Troponin T Not Reportable Troponin T Hi Sens 6Hr Troponin T Hi Sens 6Hr Delta NT-Pro-B Natriuret Pep Total Protein Albumin Globulin Urine Color Urine Appearance Urine pH Ur Specific Gravit y Urine Protein Urine Glucose (UA) Urine Ketones Urine Blood Urine Nitrate Urine Bilirubin Urine Urobilinogen Ur Leukocyte Diana ase Serum Ketones SARS-CoV-2 Ag (Rap id) 10/10/20 10/10/20 00:22 00:03 WBC RBC Hgb Hct MCV MCH MCHC RDW Plt Count MPV Neut % (Auto) Lymph % (Auto) Collier % (Auto) Eos % (Auto) Baso % (Auto) Neut # (Auto) Lymph # (Auto) Collier # (Auto) Eos # (Auto) Baso # (Auto) Nucleated RBC % (a uto) Nucleated RBCs # PT INR D-Dimer Specimen Type Sample Site ABG pH ABG pCO2 ABG pO2 ABG HCO3 ABG Base Excess Jay Test Hematocrit O2 Delivery Device New Autos Delivery Driver ID Sodium Potassium Chloride Carbon Dioxide Anion Gap BUN Creatinine GFR Calculation Glucose POC Glucose Estimat Average Gl ucose Hemoglobin A1c Calculated Osmolal ity Lactic Acid 1.0 Calcium Magnesium Total Bilirubin AST ALT Alkaline Phosphata se Troponin T Baselin e Troponin T 120 Min little [place] Delta Troponin T Troponin T Hi Sens 6Hr Troponin T Hi Sens 6Hr Delta NT-Pro-B Natriuret Pep Total Protein Albumin Globulin Urine Color Urine Appearance Urine pH Ur Specific Gravit y Urine Protein Urine Glucose (UA) Urine Ketones Urine Blood Urine Nitrate Urine Bilirubin Urine Urobilinogen Ur Leukocyte Diana ase Serum Ketones SARS-CoV-2 Ag (Rap id) Negative Vitals: Last Vital Signs Temp 98.2 F 10/11/20 11:22 Pulse 97 10/11/20 11:22 Resp 18 10/11/20 11:22 BP 126/79 10/11/20 11:22 Pulse Ox 93 10/11/20 11:22 Discharge Plan Discharge Patient Disposition: Home Condition: Stable Prescriptions: New fluticasone propion-salmeterol [Advair Diskus] 250-50 mcg/dose blister with device 1 inh inhalation BID Qty: 60 RF: 0 Levemir FlexTouch U-100 Insuln 100 unit/mL (3 mL) insulin pen 20 unit SUBCUT QPM Qty: 15 RF: 0 metformin 500 mg tablet 500 mg PO BID Qty: 60 RF: 0 doxycycline monohydrate 100 mg Tablet 100 mg PO BID Qty: 14 RF: 0 ipratropium-albuterol 0.5 mg-3 mg(2.5 mg base)/3 mL solution for nebulization 3 ml inhalation QID Qty: 180 RF: 0 Discontinued albuterol sulfate 1.25 mg/3 mL solution for nebulization 1.25 mg INHALATION Q6H PRN (Reason: shortness of breath or wheezing) Qty: 75 RF: 0 Discharge Orders: Discharge Order (Routine); Ordered 10/11/20 Ordered By: Benoit Razo Other Ambulatory Orders: DME: Nebulizer with Neb Kit (Order) Location: None Selected Ordered By: Benoit Razo DME: Oxygen (Order) Location: None Selected Ordered By: Benoit Razo Referrals: [email or web address] [Outside] (This is the company that is providing your home oxygen. The first 30 days is taken care of by some extra funds that [facility] [employer] has. Beyond that, it will be your responsibility to continue to pay for your oxygen supplies. You may also call [facility] at [phone] and they may possibly be able to help assist with cost of medications/oxygen and supplies if needed. Please communicate with [email or web address] and the phone number provided if there are any issues with payment in the future.) Piero Skinner MD [Referring] - 10/16/20 10:00 am (You have an appointment to establish care with Dr. Skinner at [facility] located at [address] [place] [address]. Their phone number is [phone]. Please disregard the [place], [place] address and arrive at the address listed above as Dr. Skinner is now located in [place], [place]. Please arrive at 10:00 AM to complete new patient paperwork and BRING YOUR 2019 TAXES WITH YOU TO QUALIFY FOR THEIR SLIDING SCALE PROGRAM; THIS IS VERY IMPORTANT.) Activity Restrictions/Additional Instructions: Follow-up with primary care provider in 3 to 5 days Oxygen 2 L per nasal cannula on discharge. Use DuoNeb 4 times daily. Use Advair as noted. Finish doxycycline. Check your blood sugar in the morning, and at night and take those to your primary care provider. Discharge Attestations Time Spent in Discharge Care*: greater than 30 min Quality Metrics Clinical Quality Measures During this hospital stay, did patient experience: None Coding Level of Care Code Acute Photographic Colorist for g Fwd Diagnoses Acute respiratory failure with hypoxia J96.01 Nicotine dependence F17.200 Diabetes E11.9 Diabetes mellitus type: type 2 Diabetes mellitus exterminator insulin use: without assisted use Diabetes mellitus complication status: without complication Hyperglycemia R73.9
--- NOTE | 2020-10-11 14:00 | PC.NURSE ---
DC instructins given, including using glucameter, insulin pen, O2, Breathing treatments patient able to demonstrate correctly. IV Dc'd cath intact, bleeding conrolled with 2x2 and coban. patients cigarettes from [employer] returned to patient. patient to main entrance via wheelchair to private vehicle with zero difficulties.
--- NOTE | 2020-10-12 08:02 | PC.RESP ---
SMOKING CESSATION INFORMATION SENT TO PATIENT.
--- NOTE | 2020-10-12 17:08 | PC.NURSE ---
contacted pt and notified him of COVID results
== END 2020-10-11 14:55 | disposition home or self-care (01) ==
LOC: ER 21:26 → MEDSURG 10-11 02:40
PROVIDERS: Admitting Provider Internal Medicine; Emergency Provider Emergency Medicine; Visit Provider Internal Medicine
DX: J96.01 Acute respiratory failure with hypoxia (principal); E11.65 Type 2 diabetes mellitus with hyperglycemia; J44.9 Chronic obstructive pulmonary disease, unspecified; F17.210 Nicotine dependence, cigarettes, uncomplicated; Z79.51 Long term (current) use of inhaled steroids
CPT/HCPCS: 12345; 36415; 36416; 36600; 71045; 80048; 80053; 81003; 82009; 82803; 82962; 83036; 83605; 83735; 83880; 84484; 85025; 85378; 85610; 87426; 93005; 94640; 94760; 96372; 96374; 96375; 99283; 99285; G0378; J1815; J2930; J3535

== ENCOUNTER 2022-06-09 23:26 | Emergency (ER) | payer MEDICAID, SELFPAY ==
[2022-06-09 23:35] VITALS: BP 108/57; PULSE 110; RESP 15; TEMP 36.8; O2SAT 96; BMI 23.3
--- NOTE | 2022-06-10 00:45 | W.ED.GENADLT ---
HPI - General Adult General: Chief complaint: General Medical Stated complaint: sore on top of R foot Time Seen by Provider: 06/10/22 00:41 History of Present Illness: 56-year-old male patient comes in today with complaints of sore to the dorsal right foot. Patient is concerned due to worsening redness over the last 2 days when he first noticed a sore. Patient is also diabetic. Patient admits to poor control of diabetes. Associated symptoms: Reports dyspnea; Deny chest pain, nausea or vomiting Review of Systems General: Reports: 10 or more systems reviewed and unremarkable except in HPI and below Card: Denies: chest pain Resp: Reports: dyspnea GI: Denies: nausea or vomiting Skin/Breast: Reports: erythema PFSH ED PFSH: Medical History (Updated 06/10/22 @ 00:58 by PEDRO PABLO Curry) Diabetes Nicotine dependence Surgical History H/O hand surgery Family History (Updated 10/11/20 @ 01:57 by Michel Rice MD) Father Cancer Father had GI cancer, was diagnosed at age 60 Social History (Updated 10/11/20 @ 01:57 by Michel Rice MD) Smoking and tobacco status: current every day smoker Alcohol intake: never Lives independently: Yes Housing: House Physical Exam Const: COMMON NORMALS: alert HENMT: COMMON NORMALS: normocephalic HEAD & SCALP: normocephalic Neck/C-Spine: COMMON NORMALS: full ROM Chest: COMMONS NORMALS: normal inspection of the chest and normal palpation of the breasts BREAST/AXILLA PALPATION: Yes normal palpation of the breasts Resp: COMMON NORMALS: normal respiratory effort AUSCULTATION: diminished lung sounds Cardio: COMMON NORMALS: regular rate and regular rhythm RATE: regular rate RHYTHM: regular rhythm GI: COMMON NORMALS: Soft to palpation and non-tender PALPATION: Yes Soft to palpation : COMMON NORMALS: Yes no CVA tenderness BLADDER/KIDNEY EXAM: Yes no CVA tenderness Back/Pelvis: COMMON NORMALS: no CVA tenderness Neuro: SENSORIUM/ORIENTATION: Yes alert Skin: LESIONS: lesion noted (Norton sized lesion dorsal right foot with surrounding erythema) Course Vital Signs: Vital signs: Vital Signs Temperature 98.2 F 06/09/22 23:35 Pulse Rate 102 H 06/10/22 01:24 Respiratory Rate 18 06/10/22 01:20 Blood Pressure 108/57 06/09/22 23:35 Pulse Oximetry 98 06/10/22 01:20 MDM - General Adult Medical Decision Making 56-year-old male patient comes in today with complaints of infected wound to the dorsal right foot. On exam patient has a 2 cm circular lesion to the dorsal right foot with surrounding redness. Vital signs are normal except for a mildly elevation in pulse at 110 bpm. Patient's fingerstick glucose was 400. Patient reports some increased wheezing but needing a nebulizer treatment he reported. Differential diagnosis includes but not limited to uncontrolled diabetes, cellulitis foot, infected wound, nicotine dependence, COPD. Patient was given a breathing treatment and a albuterol inhaler for his COPD. Patient was given 1 g of Rocephin and started on Levaquin p.o. for broad-spectrum coverage of his wound infection. Due to patient's blood glucose being 400 he was given 15 units of NovoLog 70/30. Patient was started on mupirocin ointment for better staph coverage. Patient understands to go home and put foot up take antibiotics drink plenty of fluids and manage blood glucose. Recommend patient talk to primary care tomorrow about samples or refills for his insulin. Patient reported understanding. 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: with dedicated intermodal truck driver use Diabetes mellitus complication status: with skin complications Condition: Stable Prescriptions: New mupirocin 2 % ointment 1 applic topical BID Qty: 22 0RF No Action doxycycline monohydrate 100 mg Tablet 100 mg PO BID Qty: 14 0RF Advair Diskus 250-50 mcg/dose blister with device 1 inh inhalation BID Qty: 60 0RF Levemir FlexTouch U-100 Insuln 100 unit/mL (3 mL) insulin pen 20 unit SUBCUT QPM Qty: 15 0RF metformin 500 mg tablet 500 mg PO BID Qty: 60 0RF ipratropium-albuterol 0.5 mg-3 mg(2.5 mg base)/3 mL solution for nebulization 3 ml inhalation QID Qty: 180 0RF Nicoderm CQ 21 mg/24 hr patch 24 hour 1 patch transdermal DAILY Qty: 28 0RF (DME) blood-glucose meter Misc See Rx Instructions .ROUTE .MEDSUPPLY Qty: 1 0RF Rx Instructions: As directed Discharge Orders: Discharge ED (Routine); Ordered 06/10/22 Ordered By: Spencer Camacho Discharge Diet: Usual diet Discharge Activity: Limit activity as instructed Patient Instructions: Wound Infection (ED) Activity Restrictions/Additional Instructions: Home and rest. Keep foot elevated. Use mupirocin ointment twice a day to the open wound. Take antibiotic daily for the next 10 days. Follow-up with primary care in 3 days for recheck. Return to ER for fever greater than 100.4, worsening pain, redness, swelling, or new concerns. Talk to primary care office in the morning regarding any samples or ability to get some insulin until he can get his refill. Coding Level of Care Code ED Mathematical Scientist for Breezy Gonzalez Exam Comprehensive
--- NOTE | 2022-06-10 00:52 | XRR_ITS ---
PROCEDURE INFORMATION: Exam: XR Right Foot Exam date and time: 06/10/2022 1:15 AM Age: 56 years old Clinical indication: Injury or trauma; Other: Scraped top of foot; Wound; Right; Without foreign body; Additional info: Wound infection TECHNIQUE: Imaging protocol: Radiologic exam of the Right foot. Views: 3 or more views. COMPARISON: No relevant prior studies available. FINDINGS: Bones/joints: No fracture or dislocation. No evidence of focal osteopenia, periosteal reaction or cortical destruction to suggest osteomyelitis. Soft tissues: Mild swelling of the forefoot soft tissues is present. XR/XR foot RT min 3V* [id number] IMPRESSION: 1. No acute injury. 2. No radiographic evidence of osteomyelitis.
[2022-06-10] MEDS: albuterol 8 gm MDI 2 PUFF INHALATION (01:19)
[2022-06-10] MEDS: ipratropium-albuterol 3 mL Neb INHALATION (01:19)
[2022-06-10 01:20] VITALS: PULSE 110; RESP 18; O2SAT 98
[2022-06-10 01:24] VITALS: PULSE 102
[2022-06-10] MEDS: levoFLOXacin 500 mg Tablet PO (01:36)
[2022-06-10] MEDS: mupirocin oint 22 gm 1 APPLIC TOPICAL (01:40)
[2022-06-10] MEDS: cefTRIAXone 1,000 MG in lidocaine 1% 2.1 ML 99999 MG IM (01:40)
[2022-06-10] MEDS: insulin aspart 70/30 100 units/1 mL 15 UNIT SUBCUT (01:41)
[2022-06-10 01:55] VITALS: RESP 18
[2022-06-11 08:15] LABS: Glucose Point of Care 401 mg/dL (70-110)
== END 2022-06-10 01:55 | disposition home or self-care (01) ==
PROVIDERS: Emergency Provider Nurse Practitioner Family
DX: S91.301A Unspecified open wound, right foot, initial encounter (principal); L08.9 Local infection of the skin and subcutaneous tissue, unspecified; X58.XXXA Exposure to other specified factors, initial encounter; E11.628 Type 2 diabetes mellitus with other skin complications; Z79.4 Long term (current) use of insulin; J44.9 Chronic obstructive pulmonary disease, unspecified
CPT/HCPCS: 36416; 73630; 82962; 94640; 96372; 99284; J0696; J1815; J3535

== ENCOUNTER → 2022-09-18 16:32 | Outpatient (BNVA) | payer MEDICARE, MEDICAID, SELFPAY | PROVIDERS: Visit Provider Family Medicine | DX: E11.9 Type 2 diabetes mellitus without complications (principal); F17.200 Nicotine dependence, unspecified, uncomplicated; J44.9 Chronic obstructive pulmonary disease, unspecified; E11.40 Type 2 diabetes mellitus with diabetic neuropathy, unspecified; R35.89 Other polyuria; Z71.6 Tobacco abuse counseling | CPT/HCPCS: 80053; 80061; 83036; 85025 ==

== ENCOUNTER 2022-11-27 14:47 | Outpatient (CLI) | payer MEDICARE, MEDICAID, SELFPAY ==
--- NOTE | 2022-11-27 15:00 | CT_ITS ---
WS: [id number] LDCT LUNG CANCER SCREENING TECHNIQUE: Noncontrast CT of the chest with coronal and sagittal reformatted images. CLINICAL INFORMATION: 86PY COMPARISON: None. DLP: 76.67 mGy.cm DIvol: Mean CTDIvol: 1.60 (mGy) All CT scans at [facility] use at least one of these dose optimization techniques: automat ed exposure control; mA and/or kV adjustment per patient size (includes targeted exams where dose is matched to clinical indication); or iterative reconstruction. FINDINGS: Lungs are well aerated. No acute pulmonary infiltrates. No focal pneumonia or pleural fluid . No suspicious pulmonary parenchymal opacities. Normal caliber thoracic aorta.Aortic calcification. Coronary calcification. No mediastinal or hilar l ymphadenopathy. No axillary lymphadenopathy. Adrenal glands are normal. Normal GE junction. Mild thoracic curve. Mild thoracic kyphosis. CT/CT lung screening [id number] IMPRESSION: LUNG-RADS: 1-Negative FOLLOW UP: 12 Month: Continue annual screening with LDCT
== END 2022-11-27 14:48 | disposition home or self-care (01) ==
LOC: RAD 14:48
PROVIDERS: PCP Family Medicine; Visit Provider Family Medicine
DX: Z12.2 Encounter for screening for malignant neoplasm of respiratory organs (principal); F17.200 Nicotine dependence, unspecified, uncomplicated
CPT/HCPCS: 71271

== ENCOUNTER 2022-12-08 12:40 | Outpatient (CLI) | payer MEDICARE, MEDICAID, SELFPAY ==
--- NOTE | 2022-12-08 12:45 | USCV_ITS ---
Nick Celestino Age: 57 Gender: M : 1965 Exam Date: 12/08/2022 12:55 Ordering Phys: Pedro Waller MD Technologist: Exam Location: [facility] [place] Indication: Chest Pain BP: 142 / 72 HR: 83 Rhythm: Sinus Technical Quality: Adequate MEASUREMENTS (Male / Female) Normal Values 2D ECHO LV Diastolic Diameter PLAX 4.0 cm 4.2 - 5.9 / 3.9 - 5.3 cm LV Systolic Diameter PLAX 3.0 cm IVS Diastolic Thickness 1.4 cm 0.6 - 1.0 / 0.6 - 0.9 cm IVS Systolic Thickness 1.6 cm LVPW Diastolic Thickness 1.2 cm 0.6 - 1.0 / 0.6 - 0.9 cm LVPW Systolic Thickness 1.5 cm LVOT Diameter 2.0 cm LV Ejection Fraction 2D Teich 40.0 % LV Ejection Fraction MOD 2C 58.5 % LV Ejection Fraction 2C AL 56.5 % LA Diameter 3.7 cm Aorta at Sinotubular Diameter 3.3 cm IVC Diameter 1.3 cm M-MODE Aortic Annulus Diameter 3.1 cm LA Ao Ratio MM 1.4 MV E Point Septal Separation 0.9 cm DOPPLER AV Peak Velocity 139.0 cm/s LVOT Peak Velocity 91.0 cm/s AV Area Cont Eq vti 1.6 cm squared AV Area Cont Eq pk 2.1 cm squared MV Area PHT 3.7 cm squared Mitral E to A Ratio 1.3 MV E' Velocity 49.0 cm/s Mitral E to MV E' Ratio 8.4 Mitral E to LV E' Lateral Ratio 7.2 Mitral E to LV E' Septal Ratio 10.1 TR Peak Velocity 128.7 cm/s TR Peak Gradient 6.6 mmHg TV Peak E Velocity 97.0 cm/s Right Atrial Pressure 3.0 mmHg Pulmonary Artery Systolic Pressu 9.6 mmHg RV Acceleration Time 0.1 s FINDINGS Left Ventricle Left ventricle is normal in size. LV systolic function is normal with EF 55 to 60%. No regional wall motion abnormalities are seen. Right Ventricle Normal in size and function Right Atrium Normal in size Left Atrium Normal in size Mitral Valve Structurally normal mitral valve.Trace mitral regurgitation Aortic Valve Structurally normal aortic valve.No significant stenosis or regurgitation seen Tricuspid Valve Mild tricuspid regurgitation. Pulmonary artery systolic pressure is normal. Pulmonic Valve Not well-visualized Pericardium Normal Aorta Normal in size IVC Appears to be normal CONCLUSIONS LV systolic function is normal with EF of 55 to 60%. Trace mitral regurgitation Mild tricuspid regurgitation No comparison studies are available Isaias Suárez MD (Electronically Signed) Final Date: 12 December 2022 14:52 S
== END 2022-12-08 12:41 | disposition home or self-care (01) ==
PROVIDERS: PCP Family Medicine; Visit Provider Family Medicine
DX: I25.10 Atherosclerotic heart disease of native coronary artery without angina pectoris (principal)
CPT/HCPCS: 93306

== ENCOUNTER 2023-01-26 18:15 | Emergency (ER) | payer MEDICARE, MEDICAID, SELFPAY ==
[2023-01-26 18:25] VITALS: PULSE 98; RESP 20; TEMP 36.9; O2SAT 95; BMI 24.7
--- NOTE | 2023-01-26 19:11 | ED_ITS ---
HPI - Back Pain/Injury General: Chief Complaint: Back Pain/Injury Stated Complaint: low back in pain Time Seen by Provider: 01/26/23 18:55 History of Present Illness: Patient is a 57-year-old male comes to the ED with low back pain. Symptoms started approximate 2 days ago. He was lifting a mattress and strained his lower back causing symptoms. He rates his pain currently a 10 out of 10. Pain is located in the right lower back. Denies any fall or trauma injury. Denies any pain radiating down his leg. Denies any bladder or bowel incontinence, pelvic anesthesia or any weakness to lower extremities. Associated symptoms: Deny abdominal pain, chills, dysuria, fatigue, fever(s), hematuria, nausea or vomiting Review of Systems Const: Denies: fever(s), chills or fatigue Eyes: Denies: change in vision or eye discomfort ENMT: Denies: throat pain, odynophagia, nasal discharge or nasal congestion Card: Denies: chest pain, palpitations, edema, swelling of feet/ankles, dyspnea on exertion or orthopnea Resp: Denies: dyspnea, productive cough or non-productive cough GI: Denies: abdominal pain, nausea, vomiting, diarrhea, constipation or hematochezia : Denies: flank pain, difficulty urinating, dysuria or hematuria Musc: Reports: back pain; Denies: neck pain or extremity swelling Skin/Breast: Denies: rash or new lesions Neuro: Denies: headache(s), numbness in extremities or weakness in extremities PFSH ED PFSH: Medical History COPD (chronic obstructive pulmonary disease) Coronary artery disease Diabetes Diabetic neuropathy Hypercholesteremia Nicotine dependence Surgical History H/O hand surgery Family History Father Cancer Father had GI cancer, was diagnosed at age 60 Social History (Updated 11/12/22 @ 15:31 by Khushboo Flores LPN) Smoking and tobacco status: current every day smoker (0.5ppd) cigarettes [ Other cigarette details: 1/2PPD. liftime average 2PPD, 86PY] Smoking risk assessment/counseling performed?: No Alcohol intake: never Desire information about alcohol rehabilitation?: No Counseling given: No Desire information about substance/drug rehabilitation?: No Counseling given: No Lives independently: Yes Housing: House Current occupational status: disabled Physical Exam Const: COMMON NORMALS: no acute distress, patient oriented x3 and alert GENERAL APPEARANCE: cooperative and comfortable HENMT: COMMON NORMALS: normocephalic HEAD & SCALP: normocephalic MOUTH: Normal oral and palatal mucosa present THROAT: posterior oropharynx normal and uvula midline Neck/C-Spine: COMMON NORMALS: supple GENERAL: Yes normal visual inspection Resp: COMMON NORMALS: normal respiratory effort, No retractions, No use of accessory muscles and clear to auscultation bilaterally AUSCULTATION: clear to auscultation bilaterally Cardio: COMMON NORMALS: regular rate, regular rhythm, S1 normal heart sound present, S2 normal heart sound present, No gallops present (Cardio), No clicks present (Cardio), No murmurs present (Cardio) and Peripheral pulses 2+ throughout RATE: regular rate RHYTHM: regular rhythm HEART SOUNDS: S1 normal heart sound present and S2 normal heart sound present PERIPHERAL PULSES: Peripheral pulses 2+ throughout GI: COMMON NORMALS: Normal to inspection, nondistended, normoactive bowel sounds present, Soft to palpation, non-tender and no masses PALPATION: Yes Soft to palpation : COMMON NORMALS: Yes no CVA tenderness BLADDER/KIDNEY EXAM: Yes no CVA tenderness Back/Pelvis: COMMON NORMALS: no CVA tenderness LUMBAR SPINE/LOWER BACK: Yes paraspinal muscle tenderness Lumbar paraspinal muscle tenderness: right Right lumbar paraspinal muscle tenderness: L4 and L5 Extremity: COMMON NORMALS: normal to inspection Neuro: COMMON NORMALS: patient oriented x3 SENSORIUM/ORIENTATION: Yes alert GAIT: Yes Normal gait present Skin: GENERAL SKIN EXAM: dry skin Course Vital Signs: Vital signs: Vital Signs Temperature 98.4 F 01/26/23 18:25 Pulse Rate 98 01/26/23 18:25 Respiratory Rate 20 H 01/26/23 18:25 Pulse Oximetry 95 01/26/23 18:25 Oxygen Delivery Me thod 01/26/23 18:25 MDM - Back Pain/Injury Medical Decision Making Patient is a 57-year-old male comes to the ED with low back pain. Symptoms started approximate 2 days ago. He was lifting a mattress and strained his lower back causing symptoms. He rates his pain currently a 10 out of 10. Pain is located in the right lower back. Denies any fall or trauma to cause injury. Denies any pain radiating down his leg. Denies any bladder or bowel incontinence, pelvic anesthesia or any weakness to lower extremities. Vital stable. Patient appears nontoxic in no acute distress or pain. He has some right paraspinal muscle tenderness around L4 and L5 but the rest of exam is benign. Patient given a dose of Toradol, flex and Decadron here in the ED. He was stable for discharge home diagnosed with low back pain and sent with a prescription for NSAID and muscle relaxer. Follow-up with PCP in the next week for reevaluation. Return to ED precautions given. Patient understood agree with plan. Discharge Plan Discharge Patient Disposition: Home Clinical Impression: Low back pain Qualifiers: Chronicity: acute Back pain laterality: right Sciatica presence: without sciatica Qualified Code(s): M54.50 - Low back pain, unspecified Condition: Stable Prescriptions: New Celebrex 100 mg capsule 100 mg PO BID PRN (Reason: pain) Qty: 20 0RF cyclobenzaprine 10 mg tablet 10 mg PO BID PRN (Reason: muscle spasm) Qty: 20 0RF No Action metformin 500 mg tablet 1,000 mg PO BID Qty: 90 1RF Rx Instructions: 340b (DME) blood-glucose meter Mis See Rx Instructions .ROUTE .MEDSUPPLY Qty: 1 0RF Rx Instructions: As directed (DME) Diabetic shoes See Rx Instructions .Route .MEDSUPPLY Qty: 1 0RF Rx Instructions: As directed atorvastatin [Lipitor] 40 mg tablet 40 mg PO DAILY Qty: 90 1RF Levemir FlexTouch U-100 Insuln 100 unit/mL (3 mL) insulin pen 35 unit SUBCUT QPM Qty: 15 3RF (DME) blood-glucose meter [OneTouch Ultra2 Meter] Misc See Rx Instructions .Route Qty: 1 0RF Rx Instructions: use 3 times a day (DME) blood-glucose meter Misc See Rx Instructions .Route Qty: 1 0RF Rx Instructions: As directed (DME) Blood Glucose Test Strip See Rx Instructions .Route Qty: 50 3RF Rx Instructions: As directed (DME) lancets [Fingerstix Lancets] Misc See Rx Instructions .Route Qty: 100 2RF Rx Instructions: As directed albuterol sulfate 90 mcg/actuation HFA aerosol inhaler 1 inh inhalation QID PRN (Reason: shortness of breath or wheezing) Qty: 8.5 3RF insulin lispro 100 unit/mL insulin pen 8 unit SUBCUT TID Qty: 15 4RF gabapentin 300 mg capsule 300 mg PO DAILY Qty: 90 1RF sildenafil 25 mg tablet See Rx Instructions .ROUTE .COMPLEX Qty: 30 0RF Dose Instruction: TAKE ONE TABLET BY MOUTH daily NEEDED 30 minutes TO FOUR hours before activity, no more THAN FOUR tablets in 24 hours Rx Instructions: TAKE ONE TABLET BY MOUTH daily NEEDED 30 minutes TO FOUR hours before activity, no more THAN FOUR tablets in 24 hours Dulera 200-5 mcg/actuation HFA aerosol inhaler 2 puff inhalation BID Qty: 13 2RF Discharge Orders: Discharge ED (Routine); Ordered 01/26/23 Ordered By: Saleem Colbert Referrals: Pedro Waller MD [Primary Care Provider] - Discharge Diet: Regular Discharge Activity: Increase activity as tolerated Patient Instructions: Low Back Strain (ED), Acute Low Back Pain (ED) Activity Restrictions/Additional Instructions: Follow-up with medical provider as directed in the next 5 to 7 days reevaluation. Apply heat or cold pack on lower back to help with symptoms. Stretch lower back muscles daily. Take medications as prescribed. Return to the ER or your medical provider if condition worsens. Please read and understand discharge instructions. Thank you for choosing [facility] for your healthcare needs today. Please realize this is an emergency room and that we are providing you with a medical screening exam and this may not be complete and all inclusive of all the testing and or work up that you may need to determine your ailment or severity of your illness. It is very important that you follow up as instructed or that you return to the Emergency Department should you have concerns or if your condition changes or worsens in any way. Coding Level of Care Code ED Senior Research Associate for Breezy Gonzalez
[2023-01-26] MEDS: ketorolac 60 mg/2 mL INJ IM (19:23)
[2023-01-26] MEDS: dexamethasone 10 mg/mL INJ IM (19:26)
[2023-01-26] MEDS: orphenadrine 30 mg/mL Inj 2 mL 60 MG IM (19:28)
== END 2023-01-26 20:16 | disposition home or self-care (01) ==
PROVIDERS: Emergency Provider Physician Assistant; PCP Family Medicine
DX: M54.50 Low back pain, unspecified (principal); Z79.4 Long term (current) use of insulin; Z79.84 Long term (current) use of oral hypoglycemic drugs; J44.9 Chronic obstructive pulmonary disease, unspecified; I25.10 Atherosclerotic heart disease of native coronary artery without angina pectoris; E11.9 Type 2 diabetes mellitus without complications; F17.210 Nicotine dependence, cigarettes, uncomplicated
CPT/HCPCS: 96372; 99284; J1100; J1885; J2360

== ENCOUNTER 2023-04-06 21:45 | Emergency (ER) | payer MEDICARE, MEDICAID, SELFPAY ==
[2023-04-06 21:48] VITALS: BP 138/75; PULSE 102; RESP 14; TEMP 36.6; O2SAT 96
--- NOTE | 2023-04-06 21:57 | XRR_ITS ---
PROCEDURE INFORMATION: Exam: XR Chest Exam date and time: 04/06/2023 10:02 PM Age: 57 years old Clinical indication: Pain; Chest pressure; Additional info: Cp TECHNIQUE: Imaging protocol: Radiologic exam of the chest. Views: 1 view. COMPARISON: CT lung screening [id number] 11/27/2022 2:54 PM FINDINGS: Lungs: Unremarkable. No consolidation. Pleural spaces: Unremarkable. No pleural effusion. No pneumothorax. Heart/Mediastinum: Unremarkable. No cardiomegaly. Bones/joints: Unremarkable. XR/XR chest 1V portable [id number] IMPRESSION: No acute findings.
[2023-04-06 21:59] VITALS: BP 146/75; PULSE 107; RESP 18; O2SAT 96
--- NOTE | 2023-04-06 22:00 | ED_ITS ---
HPI - General Adult General: Chief complaint: Chest Pain Stated complaint: Pain on Right Side and Back Time Seen by Provider: 04/06/23 21:46 Source: patient Mode of arrival: ambulatory Limitations: no limitations History of Present Illness: 57-year-old male states that since Thursday night he has been having sharp pains in his back he states that like it is under his right shoulder blade states it radiates into his chest states she has some pain down his right arm as well. He said some mild shortness of breath he seen his PCP today who told him he really was muscular but he states he feels like he has something inside his lungs. He denies any nausea or diaphoresis rates his pain a 5 out of 10 currently. Associated symptoms: Reports chest pain; Deny dyspnea, headache(s), nausea, rash or vomiting Review of Systems Const: Denies: fever(s), chills, body aches or change in appetite Eyes: Denies: blurry vision or eye discomfort ENMT: Denies: throat pain or dental pain Card: Reports: chest pain Resp: Denies: dyspnea GI: Denies: abdominal pain, nausea, vomiting or diarrhea : Denies: dysuria Musc: Reports: back pain Skin/Breast: Denies: rash Neuro: Denies: headache(s) Psych: Denies: depression Dino/Lymph: Denies: easy bruising All/Imm: Denies: urticaria PFSH ED PFSH: Medical History COPD (chronic obstructive pulmonary disease) Coronary artery disease Diabetes Diabetic neuropathy Hypercholesteremia Nicotine dependence Surgical History H/O hand surgery Family History Father Cancer Father had GI cancer, was diagnosed at age 60 Social History Smoking and tobacco status: current every day smoker (0.5ppd) cigarettes [ Other cigarette details: 1/2PPD. liftime average 2PPD, 86PY] Smoking risk assessment/counseling performed?: No Alcohol intake: never Desire information about alcohol rehabilitation?: No Counseling given: No Substance/Drug Use: never Desire information about substance/drug rehabilitation?: No Counseling given: No Lives independently: Yes Housing: House Current occupational status: disabled Physical Exam 2 Const: COMMON NORMALS: no acute distress, patient oriented x3 and healthy appearing HENMT: COMMON NORMALS: normocephalic and atraumatic HEAD & SCALP: normocephalic and atraumatic Eye: COMMON NORMALS: conjunctivae normal CONJUNCTIVA: Yes conjunctivae normal Neck/C-Spine: COMMON NORMALS: full ROM and supple Chest: COMMONS NORMALS: normal inspection of the chest and normal palpation of entire chest wall Resp: COMMON NORMALS: normal respiratory effort, No retractions, No use of accessory muscles and clear to auscultation bilaterally AUSCULTATION: clear to auscultation bilaterally Cardio: COMMON NORMALS: regular rate, regular rhythm and No murmurs present (Cardio) RATE: regular rate RHYTHM: regular rhythm GI: COMMON NORMALS: Normal to inspection, nondistended, normoactive bowel sounds present, Soft to palpation, non-tender and no masses PALPATION: Yes Soft to palpation : COMMON NORMALS: Yes no CVA tenderness BLADDER/KIDNEY EXAM: Yes no CVA tenderness Back/Pelvis: COMMON NORMALS: no CVA tenderness Extremity: COMMON NORMALS: normal to inspection and full ROM Neuro: COMMON NORMALS: patient oriented x3, moves all extremities and no focal motor deficits Psych: COMMON NORMALS: mental status grossly normal, Normal thought process present and cooperative THOUGHT PROCESS: Normal thought process present Skin: COMMON NORMALS: no rashes or lesions noted and no wounds GENERAL SKIN EXAM: no rashes or lesions noted Course Vital Signs: Vital signs: Vital Signs Temperature 97.9 F 04/06/23 21:48 Pulse Rate 90 04/07/23 00:27 Respiratory Rate 20 H 04/07/23 00:27 Blood Pressure 137/87 04/07/23 00:27 Pulse Oximetry 94 04/07/23 00:27 Oxygen Delivery Me thod Room Air 04/07/23 00:26 [facility] - General Adult Medical Decision Making Patient presents here with back chest pains atypical in nature is a sharp shooting pain likely muscular in nature his D-dimer here is negative no signs of dissection or pulm embolism troponins are normal he is well-appearing here he is stable for discharge he is to follow-up with PCP and return if worsening he understands agrees to plan. Lab Data 04/06/23 22:15 04/06/23 22:15 Radiology Impressions Chest X-Ray 04/06/23 21:57 IMPRESSION: No acute findings. Laboratory Results WBC 12.3 10^3/uL (4.0-10.0) H 04/06/23 22:15 RBC 4.68 10^6/uL (4.1-5.3) 04/06/23 22:15 Hgb 14.0 g/dL (11.7-16.6) 04/06/23 22:15 Hct 40.3 % (42.0-52.0) L 04/06/23 22:15 MCV 86.1 fl (80-94) 04/06/23 22:15 MCH 29.9 pg (28.0-34.0) 04/06/23 22:15 MCHC 34.7 g/dL (30.0-36.0) 04/06/23 22:15 RDW 13.2 % (12.1-15.1) 04/06/23 22:15 Plt Count 315 10^3/cmm (130-400) 04/06/23 22:15 MPV 10.5 fL (7.4-10.4) H 04/06/23 22:15 Neut % (Auto) 46.6 % 04/06/23 22:15 Lymph % (Auto) 41.4 % 04/06/23 22:15 Butler % (Auto) 9.6 % 04/06/23 22:15 Eos % (Auto) 1.9 % 04/06/23 22:15 Baso % (Auto) 0.3 % 04/06/23 22:15 Neut # (Auto) 5.73 10^3/uL (1.8-7.7) 04/06/23 22:15 Lymph # (Auto) 5.1 10^3/uL (0.8-4.8) H 04/06/23 22:15 Butler # (Auto) 1.2 10^3/uL (0.2-0.9) H 04/06/23 22:15 Eos # (Auto) 0.2 10^3/uL (0.0-0.8) 04/06/23 22:15 Baso # (Auto) 0.0 10^3/uL (0.0-0.1) 04/06/23 22:15 Nucleated RBC % (auto) 0 % 04/06/23 22:15 Nucleated RBCs # 0.0 /100WBC 04/06/23 22:15 D-Dimer 0.34 ug/mIFEU (0-0.59) 04/06/23 22:15 Sodium 137 mmol/L (136-145) 04/06/23 22:15 Potassium 3.6 mmol/L (3.5-5.1) 04/06/23 22:15 Chloride 100 mmol/L (98-107) 04/06/23 22:15 Carbon Dioxide 24 mmol/L (22-29) 04/06/23 22:15 Anion Gap 16.6 (5-19) 04/06/23 22:15 BUN 13 mg/dL (6-20) 04/06/23 22:15 Creatinine 0.9 mg/dL (0.7-1.2) 04/06/23 22:15 GFR Calculation 87.0 mL/min (90-130) L 04/06/23 22:15 Glucose 97 mg/dL (65-115) 04/06/23 22:15 Calculated Osmolality 284 mOsm/kg (285-295) L 04/06/23 22:15 Calcium 9.3 mg/dL (8.5-10.5) 04/06/23 22:15 Total Bilirubin 0.2 mg/dL (0.15-1.2) 04/06/23 22:15 AST 21 U/L (0-40) 04/06/23 22:15 ALT 16 U/L (0-41) 04/06/23 22:15 Alkaline Phosphatase 112 U/L (40-130) 04/06/23 22:15 Troponin T Baseline 16 ng/L (0-15) H 04/06/23 22:15 Troponin T 120 Minute 14.13 ng/L (0-15) 04/06/23 23:53 Delta Troponin T -1.87 ABS# (0-10) L 04/06/23 23:53 Total Protein 6.4 g/dL (6.6-8.7) L 04/06/23 22:15 Albumin 3.9 g/dL (3.5-5.2) 04/06/23 22:15 Globulin 2.5 g/dL (1.3-4.6) 04/06/23 22:15 Lipase 16 U/L (13-60) 04/06/23 22:15 EKG Data EKG 1: I personally reviewed and interpreted this EKG as follows: EKG interpretation date: 04/06/23 EKG interpretation time: 22:08 Interpretation: sinus tach hr [address] or t wave abnormalities qrs 92 qtc 382 Computer generated interpretation: Chest X-Ray 04/06/23 21:57 IMPRESSION: No acute findings. Discharge Plan Discharge Patient Disposition: Home Clinical Impression: Chest pain, Back pain Condition: Stable Prescriptions: New Naprosyn 500 mg tablet 500 mg PO BID PRN (Reason: pain) Qty: 20 0RF No Action sildenafil 25 mg tablet See Rx Instructions .ROUTE .COMPLEX Qty: 30 0RF Dose Instruction: TAKE ONE TABLET BY MOUTH daily NEEDED 30 minutes TO FOUR hours before activity, no more THAN FOUR tablets in 24 hours Rx Instructions: TAKE ONE TABLET BY MOUTH daily NEEDED 30 minutes TO FOUR hours before activity, no more THAN FOUR tablets in 24 hours Dulera 200-5 mcg/actuation HFA aerosol inhaler 2 puff inhalation BID Qty: 13 2RF metformin 500 mg tablet 500 mg PO BID Qty: 60 1RF Rx Instructions: 340b insulin lispro 100 unit/mL insulin pen 8 unit SUBCUT TID Qty: 15 4RF Levemir FlexTouch U-100 Insuln 100 unit/mL (3 mL) insulin pen 50 unit SUBCUT QPM 30 Days Qty: 15 3RF gabapentin 300 mg capsule 300 mg PO DAILY Qty: 90 1RF atorvastatin [Lipitor] 40 mg tablet 40 mg PO DAILY Qty: 90 1RF albuterol sulfate 90 mcg/actuation HFA aerosol inhaler 1 inh inhalation QID PRN (Reason: shortness of breath or wheezing) Qty: 8.5 3RF cyclobenzaprine 10 mg tablet 10 mg PO TID PRN (Reason: muscle spasm) Qty: 30 0RF ibuprofen 800 mg tablet 800 mg PO Q8H PRN (Reason: pain) Qty: 30 0RF (DME) blood-glucose meter Misc See Rx Instructions .ROUTE .MEDSUPPLY Qty: 1 0RF Rx Instructions: As directed (DME) Diabetic shoes See Rx Instructions .Route .MEDSUPPLY Qty: 1 0RF Rx Instructions: As directed (DME) blood-glucose meter [OneTouch Ultra2 Meter] Misc See Rx Instructions .Route Qty: 1 0RF Rx Instructions: use 3 times a day (DME) blood-glucose meter Misc See Rx Instructions .Route Qty: 1 0RF Rx Instructions: As directed (DME) Blood Glucose Test Strip See Rx Instructions .Route Qty: 50 3RF Rx Instructions: As directed (DME) lancets [Fingerstix Lancets] Misc See Rx Instructions .Route Qty: 100 2RF Rx Instructions: As directed Discharge Orders: Discharge ED (Routine); Ordered 04/07/23 Ordered By: Dexter Merlos Referrals: Pedro Waller MD [Primary Care Provider] - 1-3 days Discharge Diet: Advance as tolerated Discharge Activity: Resume usual activity Patient Instructions: Chest Pain (ED) Coding Level of Care Code ED Trauma Doctor for Breezy Gonzalez
--- NOTE | 2023-04-06 22:08 | ECG_ITS ---
[facility] [place] Test Date: 2023-04-06 Pat Name: Celestino Romero Department: Room: Gender: Male Traffic Rate Computer: : 1965 Requested By: Dexter Merlos Order Number: [id number] Pola MD: Isaias Suárez M.D. Measurements Intervals [place] Rate: 105 P: 73 [place]: 135 QRS: 54 QRSD: 92 T: 56 QT: 321 QTc: 426 Interpretive Statements SINUS TACHYCARDIA Compared to ECG 10/10/2020 21:52:06 No significant changes Electronically Signed On 04-07-2023 11:53:36 CDT by Isaias Suárez M.D. [id number]
[2023-04-06] MEDS: ondansetron 2 mg/ML SDV 2 mL 4 MG IVP (22:14)
[2023-04-06 22:15] VITALS: RESP 20; O2SAT 94
[2023-04-06] MEDS: morphine 4 mg/mL SDV 1 mL IVP (22:15)
[2023-04-06 22:18] VITALS: O2SAT 94
[2023-04-06 22:27] LABS: Basophils % 0.3 %; Eosinophils # 0.2 10^3/uL (0.0-0.8); Eosinophils % 1.9 %; Hematocrit 40.3 % (42.0-52.0); Lymphocytes # 5.1 10^3/uL (0.8-4.8); Lymphocytes % 41.4 %; Mean Corpuscular HGB Conc 34.7 g/dL (30.0-36.0); Mean Corpuscular Hemoglobin 29.9 pg (28.0-34.0); Mean Corpuscular Volume 86.1 fl (80-94); Mean Platelet Volume 10.5 fL (7.4-10.4); Monocytes # 1.2 10^3/uL (0.2-0.9); Monocytes % 9.6 %; Neutrophils # 5.73 10^3/uL (1.8-7.7); Neutrophils % 46.6 %; Nucleated Red Blood Cells % 0 %; Platelet Count 315 10^3/cmm (130-400); Red Blood Count 4.68 10^6/uL (4.1-5.3); Red Cell Distribution Width 13.2 % (12.1-15.1); White Blood Count 12.3 10^3/uL (4.0-10.0)
[2023-04-06 22:44] VITALS: BP 106/75; PULSE 99; RESP 19; O2SAT 94
[2023-04-06 22:44] LABS: Alanine Aminotransferase 16 U/L (0-41); Albumin Level 3.9 g/dL (3.5-5.2); Alkaline Phosphatase 112 U/L (40-130); Anion Gap 16.6 (5-19); Aspartate Amino Transferase 21 U/L (0-40); Blood Urea Nitrogen 13 mg/dL (6-20); Calcium 9.3 mg/dL (8.5-10.5); Carbon Dioxide 24 mmol/L (22-29); Chloride 100 mmol/L (98-107); Globulin 2.5 g/dL (1.3-4.6); Glucose 97 mg/dL (65-115); Lipase 16 U/L (13-60); Osmolality Calculated 284 mOsm/kg (285-295); Potassium 3.6 mmol/L (3.5-5.1); Sodium 137 mmol/L (136-145); Total Bilirubin 0.2 mg/dL (0.15-1.2); Total Protein 6.4 g/dL (6.6-8.7)
[2023-04-06 22:46] LABS: Troponin(5th) Baseline 16 ng/L (0-15)
[2023-04-06] MEDS: sodium chloride 0.9% 1,000 ML 999 ML IV (22:52)
[2023-04-06 22:57] VITALS: BP 106/66; PULSE 98; RESP 26; O2SAT 91
[2023-04-06 23:03] LABS: D Dimer 0.34 ug/mIFEU (0-0.59)
--- NOTE | 2023-04-06 23:57 | ECG_ITS ---
[facility] Test Date: 2023-04-06 Pat Name: Celestino Romero Department: Room: Gender: Male Offal Baler: : 1965 Requested By: Dexter Merlos Order Number: [id number] Pola MD: Isaias Suárez M.D. Measurements Intervals [place] Rate: 89 P: 74 HI: 147 QRS: 69 QRSD: 94 T: 64 QT: 354 QTc: 433 Interpretive Statements SINUS RHYTHM Compared to ECG 10/10/2020 21:52:06 Sinus tachycardia no longer present Electronically Signed On 04-07-2023 11:54:44 CDT by Isaias Suárez M.D. [id number]
[2023-04-07 00:18] LABS: Troponin 5 2HR 14.13 ng/L (0-15)
[2023-04-07 00:21] LABS: Troponin 5 2HR Delta -1.87 ABS# (0-10)
[2023-04-07 00:26] VITALS: BP 136/87; PULSE 90; RESP 26; O2SAT 95
[2023-04-07 00:27] VITALS: BP 137/87; PULSE 90; RESP 20; O2SAT 94
== END 2023-04-07 00:33 | disposition home or self-care (01) ==
PROVIDERS: Emergency Provider Emergency Medicine; PCP Family Medicine
DX: R07.9 Chest pain, unspecified (principal); M54.9 Dorsalgia, unspecified; Z79.84 Long term (current) use of oral hypoglycemic drugs; Z79.4 Long term (current) use of insulin; F17.210 Nicotine dependence, cigarettes, uncomplicated; J44.9 Chronic obstructive pulmonary disease, unspecified; I25.10 Atherosclerotic heart disease of native coronary artery without angina pectoris; E11.9 Type 2 diabetes mellitus without complications
CPT/HCPCS: 71045; 80053; 83036; 83690; 84484; 85025; 85378; 93005; 96374; 96375; 99285; J2270; J2405; J7030

== ENCOUNTER 2023-04-16 05:56 | Emergency (ER) | payer MEDICARE, MEDICAID, SELFPAY ==
[2023-04-16] VITALS (8 sets, daily range): BP systolic 143–168; BP diastolic 74–86; PULSE 89–104; RESP 16–28; TEMP 36.4; O2SAT 94–98; BMI 22.1
--- NOTE | 2023-04-16 06:05 | W.ED.CHESTPA ---
HPI - Chest Pain General: Chief Complaint: Chest Pain Stated Complaint: chest pain Time Seen by Provider: [facility]16[facility]23 06[facility]: Medical History COPD (chronic obstructive pulmonary disease) Coronary artery disease Diabetes Diabetic neuropathy Hypercholesteremia Nicotine dependence Surgical History H/O hand surgery Family History Father Cancer Father had GI cancer, was diagnosed at age 60 Social History Smoking and tobacco status: current every day smoker (0.5ppd) cigarettes [ Other cigarette details: 1/2PPD. liftime average 2PPD, 86PY] Smoking risk assessment/counseling performed?: No Alcohol intake: never Desire information about alcohol rehabilitation?: No Counseling given: No Substance/Drug Use: never Desire information about substance/drug rehabilitation?: No Counseling given: No Lives independently: Yes Housing: House Current occupational status: disabled Course Vital Signs: Vital signs: Vital Signs Temperature 97.6 F 04/16/23 05:57 Pulse Rate 98 04/16/23 05:57 Respiratory Rate 19 H 04/16/23 05:57 Blood Pressure 168/86 04/16/23 05:57 Pulse Oximetry 96 04/16/23 05:57 Oxygen Delivery Me thod Room Air 04/16/23 05:57 Discharge Plan Discharge Condition: Stable Prescriptions: No Action sildenafil 25 mg tablet See Rx Instructions .ROUTE .COMPLEX Qty: 30 0RF Dose Instruction: TAKE ONE TABLET BY MOUTH daily NEEDED 30 minutes TO FOUR hours before activity, no more THAN FOUR tablets in 24 hours Rx Instructions: TAKE ONE TABLET BY MOUTH daily NEEDED 30 minutes TO FOUR hours before activity, no more THAN FOUR tablets in 24 hours Dulera 200-5 mcg/actuation HFA aerosol inhaler 2 puff inhalation BID Qty: 13 2RF insulin lispro 100 unit/mL insulin pen 8 unit SUBCUT TID Qty: 15 4RF gabapentin 300 mg capsule 300 mg PO DAILY Qty: 90 1RF atorvastatin [Lipitor] 40 mg tablet 40 mg PO DAILY Qty: 90 1RF albuterol sulfate 90 mcg/actuation HFA aerosol inhaler 1 inh inhalation QID PRN (Reason: shortness of breath or wheezing) Qty: 8.5 3RF ibuprofen 800 mg tablet 800 mg PO Q8H PRN (Reason: pain) Qty: 30 0RF (DME) blood-glucose meter Misc See Rx Instructions .ROUTE .MEDSUPPLY Qty: 1 0RF Rx Instructions: As directed (DME) Diabetic shoes See Rx Instructions .Route .MEDSUPPLY Qty: 1 0RF Rx Instructions: As directed (DME) blood-glucose meter [OneTouch Ultra2 Meter] Misc See Rx Instructions .Route Qty: 1 0RF Rx Instructions: use 3 times a day Levemir FlexTouch U-100 Insuln 100 unit/mL (3 mL) insulin pen 30 unit SUBCUT BID 30 Days Qty: 18 3RF glipizide 10 mg tablet 10 mg PO DAILY Qty: 90 1RF cyclobenzaprine 10 mg tablet 10 mg PO TID PRN (Reason: muscle spasm) Qty: 30 0RF (DME) blood-glucose meter Misc See Rx Instructions .Route Qty: 1 0RF Rx Instructions: As directed (DME) Blood Glucose Test Strip See Rx Instructions .Route Qty: 50 3RF Rx Instructions: As directed (DME) lancets [Fingerstix Lancets] Misc See Rx Instructions .Route Qty: 100 2RF Rx Instructions: As directed Naprosyn 500 mg tablet 500 mg PO BID PRN (Reason: pain) Qty: 20 0RF Referrals: Pedro Waller MD [Primary Care Provider] - Coding Level of Care Code ED Laundry Helper for Breezy Gonzalez
--- NOTE | 2023-04-16 06:11 | ED_ITS ---
HPI - General Adult General: Chief complaint: Chest Pain Stated complaint: chest pain Time Seen by Provider: 04/16/23 06:03 Source: patient Mode of arrival: ambulatory History of Present Illness: 57-year-old male comes in complaining of right-sided axillary pain. He refers the pain lateral chest wall up into the axilla on the right side. Is been there for about 2-1/2 to 3 weeks he has been in the emergency room before he is also seen his primary care doctor 40 had some moderate relief with anti- inflammatories. He was previously worked up for possible PE D-dimer was negative chest x-ray was unremarkable. Patient is diabetes and history hypertension hyperlipidemia there is no previous history of cardiac work-up he did have a normal echo In November 2022 but no previous stress testing that I could identify or he could recall. Nothing seems to exacerbate or relieve it. He does state he has pain that radiates down into the hand that time he feels like his arm is swollen. He does not remember any particular precipitating event. Onset (ago): week(s) (2-3) Location: chest Severity: moderate Quality: aching Pain Consistency: intermittent Relieving factors: immobilization Exacerbating factors: movement Associated symptoms: Reports chest pain (Right side axilla see above); Deny confusion, cough, diaphoresis, decreased appetite, dyspnea, fevers/chills, headache(s), malaise, nausea, rash, palpitations, seizures, short of breath, syncope, vomiting, weakness or other Treatments prior to arrival: none Review of Systems Const: Denies: fever(s), chills, fatigue, malaise or diaphoresis ENMT: Denies: throat pain, ear or mastoid pain, nasal discharge or nasal congestion Card: Reports: chest pain (Right side axilla see above); Denies: palpitations or syncope Resp: Denies: dyspnea GI: Denies: abdominal pain, nausea or vomiting : Denies: flank pain, dysuria, urinary frequency or urinary urgency Skin/Breast: Denies: rash Neuro: Denies: headache(s) or confusion PFS ED PFSH: Medical History COPD (chronic obstructive pulmonary disease) Coronary artery disease Diabetes Diabetic neuropathy Hypercholesteremia Nicotine dependence Surgical History H/O hand surgery Family History Father Cancer Father had GI cancer, was diagnosed at age 60 Social History Smoking and tobacco status: current every day smoker (0.5ppd) cigarettes [ Other cigarette details: 1/2PPD. liftime average 2PPD, 86PY] Smoking risk assessment/counseling performed?: No Alcohol intake: never Desire information about alcohol rehabilitation?: No Counseling given: No Substance/Drug Use: never Desire information about substance/drug rehabilitation?: No Counseling given: No Lives independently: Yes Housing: House Current occupational status: disabled Physical Exam Const: GENERAL APPEARANCE: cooperative and comfortable OR IENTATION/CONSCIOUSNESS: Yes awake, Yes oriented to person, Yes oriented to place and Yes oriented to time HENMT: COMMON NORMALS: normocephalic, atraumatic and hearing grossly normal bilaterally HEAD & SCALP: normocephalic and atraumatic Resp: COMMON NORMALS: normal respiratory effort, No retractions, No use of accessory muscles and clear to auscultation bilaterally AUSCULTATION: clear to auscultation bilaterally Cardio: COMMON NORMALS: regular rate, regular rhythm and No murmurs present (Cardio) RATE: regular rate RHYTHM: regular rhythm GI: COMMON NORMALS: Soft to palpation and No hepatosplenomegaly present AUSCULTATION: Yes normoactive bowel sounds PALPATION: Yes Soft to palpation, No Tenderness to palpation present (GI), No Guarding due to palpation present (GI) and Yes No hepatosplenomegaly present Extremity: COMMON NORMALS: normal to inspection, capillary refill normal, no clubbing, cyanosis or edema, no calf tenderness and no pedal edema OTHER: Left shoulder, mildly positive impingement sign with internal rotation sensation to the distal left upper extremity normal pulses equal but bilaterally Neuro: SENSORIUM/ORIENTATION: Yes oriented to person, Yes oriented to place and Yes oriented to time Skin: COMMON NORMALS: no rashes or lesions noted GENERAL SKIN EXAM: no rashes or lesions noted Course Vital Signs: Vital signs: Vital Signs Temperature 97.6 F 04/16/23 05:57 Pulse Rate 98 04/16/23 09:34 Respiratory Rate 18 05/18/23 09:34 Blood Pressure 157/77 04/16/23 09:34 Pulse Oximetry 97 04/16/23 09:34 Oxygen Delivery Me thod Room Air 04/16/23 08:04 MDM - General Adult Medical Decision Making EKG shows no acute changes. Troponins trended negative. CTA chest was done rec ently was negative all reviewed on the chart. Reviewed labs and imaging is done today as well. Leg is discomfort may be more musculoskeletal or possible neurologic. It radiates down to his arm. It is worsened slightly with movement through the shoulder joint there is no acute x-ray changes. There is no trauma or injuries not dislocated. Discharge patient home we will switch him to Lyrica prednisone taper diclofenac and follow-up with orthopedics. Medical Records I reviewed the patient's medical records. Lab Data I reviewed the patient's lab results. 04/16/23 06:28 04/16/23 06:28 Radiology Impressions Chest X-Ray 04/16/23 06:13 Impression: Negative chest. Shoulder X-Ray 04/16/23 06:13 Impression: Negative right shoulder. Laboratory Results WBC 9.1 10^3/uL (4.0-10.0) 04/16/23 06:28 RBC 5.42 10^6/uL (4.1-5.3) H 04/16/23 06:28 Hgb 16.3 g/dL (11.7-16.6) 04/16/23 06:28 Hct 47.5 % (42.0-52.0) 04/16/23 06:28 MCV 87.6 fl (80-94) 04/16/23 06:28 MCH 30.1 pg (28.0-34.0) 04/16/23 06:28 MCHC 34.3 g/dL (30.0-36.0) 04/16/23 06:28 RDW 13.2 % (12.1-15.1) 04/16/23 06:28 Plt Count 320 10^3/cmm (130-400) 04/16/23 06:28 MPV 9.6 fL (7.4-10.4) 04/16/23 06:28 Neut % (Auto) 41.9 % 04/16/23 06:28 Lymph % (Auto) 45.2 % 04/16/23 06:28 [place] % (Auto) 8.2 % 04/16/23 06:28 Eos % (Auto) 4.1 % 04/16/23 06:28 Baso % (Auto) 0.4 % 04/16/23 06:28 Neut # (Auto) 3.81 10^3/uL (1.8-7.7) 04/16/23 06:28 Lymph # (Auto) 4.1 10^3/uL (0.8-4.8) 04/16/23 06:28 [place] # (Auto) 0.8 10^3/uL (0.2-0.9) 04/16/23 06:28 Eos # (Auto) 0.4 10^3/uL (0.0-0.8) 04/16/23 06:28 Baso # (Auto) 0.0 10^3/uL (0.0-0.1) 04/16/23 06:28 Nucleated RBC % (auto) 0 % 04/16/23 06: Nucleated RBCs # 0.0 /100WBC 04/16/23 06:28 Sodium 138 mmol/L (136-145) 04/16/23 06:28 Potassium 4.1 mmol/L (3.5-5.1) 04/16/23 06:28 Chloride 102 mmol/L (98-107) 04/16/23 06:28 Carbon Dioxide 25 mmol/L (22-29) 04/16/23 06:28 Anion Gap 15.1 (5-19) 04/16/23 06:28 BUN 6 mg/dL (6-20) 04/16/23 06:28 Creatinine 0.6 mg/dL (0.7-1.2) L 04/16/23 06:28 GFR Calculation 138.9 mL/min (90-130) H 04/16/23 06:28 Glucose 132 mg/dL (65-115) H 04/16/23 06:28 Calculated Osmolality 285 mOsm/kg (285-295) 04/16/23 06:28 Calcium 9.0 mg/dL (8.5-10.5) 04/16/23 06:28 Total Bilirubin 0.4 mg/dL (0.15-1.2) 04/16/23 06:28 AST 13 U/L (0-40) 04/16/23 06:28 ALT 12 U/L (0-41) 04/16/23 06:28 Alkaline Phosphatase 107 U/L (40-130) 04/16/23 06:28 Troponin T Baseline 29 ng/L (0-15) H 04/16/23 06:28 Troponin T 120 Minute 22.97 ng/L (0-15) H 04/16/23 08:35 Delta Troponin T -6.03 ABS# (0-10) L 04/16/23 08:35 Total Protein 6.9 g/dL (6.6-8.7) 04/16/23 06:28 Albumin 4.5 g/dL (3.5-5.2) 04/16/23 06:28 Globulin 2.4 g/dL (1.3-4.6) 04/16/23 06:28 Discharge Plan Discharge Patient Disposition: Home Clinical Impression: Right shoulder pain Condition: Stable Prescriptions: New diclofenac sodium 75 mg tablet,delayed release (DR/EC) 75 mg PO Q12H PRN (Reason: pain) Qty: 20 0RF Medrol (Julio Cesar) 4 mg tablets,dose pack See Rx Instructions .ROUTE .COMPLEX Qty: 21 0RF Rx Instructions: orally per package directions Lyrica 75 mg capsule 75 mg PO BID Qty: 60 0RF Discontinued gabapentin 300 mg capsule 300 mg PO DAILY Qty: 90 1RF ibuprofen 800 mg tablet 800 mg PO Q8H PRN (Reason: pain) Qty: 30 0RF naproxen [Naprosyn] 500 mg tablet 500 mg PO BID PRN (Reason: pain) Qty: 20 0RF No Action sildenafil 25 mg tablet See Rx Instructions .ROUTE .COMPLEX Qty: 30 0RF Dose Instruction: TAKE ONE TABLET BY MOUTH daily NEEDED 30 minutes TO FOUR hours before activity, no more THAN FOUR tablets in 24 hours Rx Instructions: TAKE ONE TABLET BY MOUTH daily NEEDED 30 minutes TO FOUR hours before activity, no more THAN FOUR tablets in 24 hours Dulera 200-5 mcg/actuation HFA aerosol inhaler 2 puff inhalation BID Qty: 13 2RF insulin lispro 100 unit/mL insulin pen 8 unit SUBCUT TID Qty: 15 4RF atorvastatin [Lipitor] 40 mg tablet 40 mg PO DAILY Qty: 90 1RF albuterol sulfate 90 mcg/actuation HFA aerosol inhaler 1 inh inhalation QID PRN (Reason: shortness of breath or wheezing) Qty: 8.5 3RF (DME) blood-glucose meter Misc See Rx Instructions .ROUTE .MEDSUPPLY Qty: 1 0RF Rx Instructions: As directed (DME) Diabetic shoes See Rx Instructions .Route .MEDSUPPLY Qty: 1 0RF Rx Instructions: As directed (DME) blood-glucose meter [OneTouch Ultra2 Meter] Misc See Rx Instructions .Route Qty: 1 0RF Rx Instructions: use 3 times a day Levemir FlexTouch U-100 Insuln 100 unit/mL (3 mL) insulin pen 30 unit SUBCUT BID 30 Days Qty: 18 3RF glipizide 10 mg tablet 10 mg PO DAILY Qty: 90 1RF cyclobenzaprine 10 mg tablet 10 mg PO TID PRN (Reason: muscle spasm) Qty: 30 0RF (DME) blood-glucose meter Misc See Rx Instructions .Route Qty: 1 0RF Rx Instructions: As directed (DME) Blood Glucose Test Strip See Rx Instructions .Route Qty: 50 3RF Rx Instructions: As directed (DME) lancets [Fingerstix Lancets] Misc See Rx Instructions .Route Qty: 100 2RF Rx Instructions: As directed Discharge Orders: Discharge ED (Routine); Ordered 04/16/23 Ordered By: Ken Schaffer Referrals: Pedro Waller MD [Primary Care Provider] - Discharge Diet: Usual diet Discharge Activity: Limit activity as instructed Patient Instructions: Opioid Safety, Pain Management Activity Restrictions/Additional Instructions: You were seen today for right shoulder pain. Avoid using right arm above shoulder level. Keep appointment with orthopedics as previously scheduled stop the gabapentin and instead use Lyrica stop ibuprofen and naproxen and instead use the diclofenac. Follow-up with your primary care doctor. Coding Level of Care Code ED Javascript Developer for Breezy Gonzalez
--- NOTE | 2023-04-16 06:13 | XR_ITS ---
WS: [id number] Portable AP upright chest, 04/16/2023 Clinical Data: chest pain Comparison: Portable chest, 04/06/2023 Findings: No nodules, masses or effusions are seen. The heart is normal. The pulmonary vascularity is not increased. No pneumonia or pneumothorax is seen. XR/XR chest 1V portable [id number] Impression: Negative chest.
--- NOTE | 2023-04-16 06:13 | XR_ITS ---
WS: [id number] Right shoulder, 2 views, 04/16/2023 Clinical Data: pain Comparison: None. Findings: No fractures or dislocations are seen. The AC joint is normal. The adjacent right clavicle, right sca pula and ribs are normal. The soft tissues are unremarkable. XR/XR shoulder RT min 2V* [id number] Impression: Negative right shoulder.
--- NOTE | 2023-04-16 06:14 | ECG_ITS ---
[facility] Test Date: 2023-04-16 Pat Name: Celestino Romero Department: Room: Gender: Male Inspector Watch Parts: : 1965 Requested By: Ken Ha Order Number: [id number] Pola MD: Letty Canales M.D. Measurements Intervals [place] Rate: 93 P: 67 IN: 130 QRS: 55 QRSD: 96 T: 52 QT: 349 QTc: 435 Interpretive Statements SINUS RHYTHM WITH OCCASIONAL SUPRAVENTRICULAR PREMATURE COMPLEXES Compared to ECG 04/06/2023 23:54:33 No significant changes Electronically Signed On 04-18-2023 6:10:49 CDT by Letty Canales M.D. [email or web address] Healthwin[facility] centerAllergEaseselect medical specialty hospital [facility], inc.[facility]/store/Ov/[id number]
[2023-04-16] MEDS: ipratropium-albuterol 3 mL Neb INHALATION (06:28)
[2023-04-16] MEDS: dexamethasone 10 mg/mL INJ IVP (06:31)
[2023-04-16] MEDS: ketorolac 30 mg/mL INJ IVP (06:32)
[2023-04-16 06:43] LABS: Basophils % 0.4 %; Eosinophils # 0.4 10^3/uL (0.0-0.8); Eosinophils % 4.1 %; Hematocrit 47.5 % (42.0-52.0); Hemoglobin 16.3 g/dL (11.7-16.6); Lymphocytes # 4.1 10^3/uL (0.8-4.8); Lymphocytes % 45.2 %; Mean Corpuscular HGB Conc 34.3 g/dL (30.0-36.0); Mean Corpuscular Hemoglobin 30.1 pg (28.0-34.0); Mean Corpuscular Volume 87.6 fl (80-94); Mean Platelet Volume 9.6 fL (7.4-10.4); Monocytes # 0.8 10^3/uL (0.2-0.9); Monocytes % 8.2 %; Neutrophils # 3.81 10^3/uL (1.8-7.7); Neutrophils % 41.9 %; Nucleated Red Blood Cells % 0 %; Platelet Count 320 10^3/cmm (130-400); Red Blood Count 5.42 10^6/uL (4.1-5.3); Red Cell Distribution Width 13.2 % (12.1-15.1); White Blood Count 9.1 10^3/uL (4.0-10.0)
[2023-04-16 06:56] LABS: Alanine Aminotransferase 12 U/L (0-41); Albumin Level 4.5 g/dL (3.5-5.2); Alkaline Phosphatase 107 U/L (40-130); Anion Gap 15.1 (5-19); Aspartate Amino Transferase 13 U/L (0-40); Blood Urea Nitrogen 6 mg/dL (6-20); Carbon Dioxide 25 mmol/L (22-29); Chloride 102 mmol/L (98-107); Globulin 2.4 g/dL (1.3-4.6); Glomerular Filtration Rate 138.9 mL/min (90-130); Glucose 132 mg/dL (65-115); Osmolality Calculated 285 mOsm/kg (285-295); Potassium 4.1 mmol/L (3.5-5.1); Sodium 138 mmol/L (136-145); Total Bilirubin 0.4 mg/dL (0.15-1.2); Total Protein 6.9 g/dL (6.6-8.7)
[2023-04-16 06:57] LABS: Troponin(5th) Baseline 29 ng/L (0-15)
--- NOTE | 2023-04-16 08:32 | ECG_ITS ---
[facility] Test Date: 2023-04-16 Pat Name: Celestino Romero Department: Room: Gender: Male Fruit Sorter: : 1965 Requested By: Ken Ha Order Number: [id number] Pola MD: Letty Canales M.D. Measurements Intervals [place] Rate: 86 P: 149 [place]: 153 QRS: 110 QRSD: 92 T: 131 QT: 355 QTc: 427 Interpretive Statements ECTOPIC ATRIAL RHYTHM LEFT POSTERIOR FASCICULAR BLOCK [QRS AXIS > 109, INFERIOR Q] Compared to ECG 04/16/2023 05:59:31 Ectopic atrial rhythm now present Left posterior fascicular block now present Sinus rhythm no longer present Electronically Signed On 04-18-2023 6:57:20 CDT by Letty Canales M.D. [email or web address]/store/[id number]
[2023-04-16 09:00] LABS: Troponin 5 2HR 22.97 ng/L (0-15)
[2023-04-16 09:03] LABS: Troponin 5 2HR Delta -6.03 ABS# (0-10)
--- NOTE | 2023-04-16 10:38 | DCPLANNER ---
Addendum entered by Elena Rebolledo 04/29/23 11:20: Patient had a follow up appointment scheduled with ortho - patient did attend appointment. Addendum entered by Elena Rebolledo 04/17/23 10:03: Patient has a follow up appointment scheduled for Friday, April 28, 2023 at 3:[address] Vazquez at ortho. Original Note: dispatch manager had message to schedule a followup appointment for patient with ortho. dispatch manager sent patients information to the front office staff at ortho. Patients information will be printed and reviewed. Clinic will call patient with appointment information.
== END 2023-04-16 09:51 | disposition home or self-care (01) ==
PROVIDERS: Emergency Provider Family Medicine; PCP Family Medicine
DX: M25.511 Pain in right shoulder (principal); Z79.4 Long term (current) use of insulin; Z79.84 Long term (current) use of oral hypoglycemic drugs; J44.9 Chronic obstructive pulmonary disease, unspecified; I25.10 Atherosclerotic heart disease of native coronary artery without angina pectoris; E11.9 Type 2 diabetes mellitus without complications; F17.210 Nicotine dependence, cigarettes, uncomplicated
CPT/HCPCS: 71045; 73030; 80053; 84484; 85025; 93005; 96374; 96375; 99285; J1100; J1885

== ENCOUNTER → 2023-04-28 16:01 | Outpatient (BNVA) | payer MEDICARE, MEDICAID, SELFPAY | PROVIDERS: PCP Family Medicine; Referring Provider Family Medicine; Visit Provider Orthopaedic Surgery | DX: M47.892 Other spondylosis, cervical region (principal); M54.2 Cervicalgia; M47.812 Spondylosis without myelopathy or radiculopathy, cervical region | CPT/HCPCS: 72050; 99203 ==

== ENCOUNTER → 2023-05-05 13:29 | Outpatient (BNVA) | payer MEDICARE, MEDICAID, SELFPAY | PROVIDERS: PCP Family Medicine; Visit Provider Physician Assistant | DX: M47.812 Spondylosis without myelopathy or radiculopathy, cervical region (principal); M54.12 Radiculopathy, cervical region; M50.30 Other cervical disc degeneration, unspecified cervical region | CPT/HCPCS: 72040; 99203 ==

== ENCOUNTER → 2023-06-09 15:48 | Outpatient (BNVA) | payer MEDICARE, MEDICAID, SELFPAY | PROVIDERS: PCP Family Medicine; Visit Provider Nurse Practitioner Family | DX: M47.812 Spondylosis without myelopathy or radiculopathy, cervical region (principal); M54.12 Radiculopathy, cervical region; M50.30 Other cervical disc degeneration, unspecified cervical region | CPT/HCPCS: 99213 ==

== ENCOUNTER 2023-06-24 09:12 | Outpatient (CLI) | payer MEDICARE, MEDICAID, SELFPAY ==
--- NOTE | 2023-06-24 | CT_ITS ---
CT LUMBAR SPINE TECHNIQUE: Noncontrast CT of the lumbar spine with coronal and sagittal reformatted images. CLINICAL INFORMATION: FOR MYELOGRAM PRE IMAGING COMPARISON: None. DLP: 349.[address] scans at [facility] use at least one of these dose optimization techniques: automated exposure control; mA and/or kV adjustment per patient size (includes targeted exams where dose is matched to clinical indication); or iterative reconstruction. FINDINGS: Mild lumbar curve. No acute compression. Mild central canal stenosis L2-L3 L3-L4 and L4-L5. L1-L2: Tiny central protrusion. Slight effacement of ventral thecal sac. Spinal canal and foramen are patent. Mild facet arthropathy. Small protrusion eccentric to the LEFT. L2-L3: Tiny RIGHT pericentral protrusion. Mild spinal canal stenosis. Mild facet arthropathy. Foramen are patent. L3-L4: Disc osteophyte complex with endplate ridging. Mild central canal stenosis. Moderate facet arthropathy. Ligamentum flavum hypertrophy. Mild RIGHT and no significant LEFT foraminal narrowing. L4-L5: Shallow tiny central protrusion. Mild central canal stenosis. Moderate facet arthropathy. Mild bilateral foraminal narrowing. L5-S1: Tiny shallow central protrusion. Mild facet arthropathy. Spinal canal and foramen are patent. Adrenal glands are normal. Visualized pelvic bony structures: Normal. Paravertebral soft tissues: Normal. IMPRESSION: 1. Mild spondylitic changes lumbar spine. 2. Mild central canal stenosis due to shallow disc protrusions at L2-L3 L3-L4 and L4-L5. 3. Moderate facet arthropathy L3-L4 L4-L5 and L5-S1. [facility] CT/CT lumbar spine wo con* [id number] IMPRESSION: 1. Uncomplicated cervical myelogram. 2. Please see CT myelogram report for anatomic detail
--- NOTE | 2023-06-24 | CT_ITS ---
CT CERVICAL MYELOGRAM TECHNIQUE: CT of the cervical spine coronal and sagittal reformatted images post intrathecal administration of contrast. CLINICAL INFORMATION: pain COMPARISON: 2010 DLP: 154.[address] scans at [facility] use at least one of these dose optimization techniques: automated exposure control; mA and/or kV adjustment per patient size (includes targeted exams where dose is matched to clinical indication); or iterative reconstruction. FINDINGS: Moderate spondylitic changes cervical spine. Straightening of the normal cervical lordosis. Disc space narrowing C3-C6 with anterior hypertrophic changes. Disc osteophyte complexes. Multilevel mild to moderate central canal stenosis C3-C6. C2-C3: No significant disc bulging. Moderate LEFT facet arthropathy. Spinal canal and foramen are patent. C3-C4: Mild disc osteophytic ridging. Mild bilateral bony foraminal narrowing. This is worse on the RIGHT. Tiny shallow LEFT pericentral protrusion with mild central canal stenosis. Uncovertebral joint hypertrophy. C4-C5: Mild disc osteophyte complex with endplate ridging. Mild to moderate central canal stenosis. Slight indentation on the cervical cord. Moderate LEFT and mild RIGHT bony foraminal narrowing. C5-C6: Disc osteophyte complex with endplate ridging. Slight indentation on the LEFT ventral cervical cord. Mild to moderate central canal stenosis. Moderate LEFT and mild RIGHT bony foraminal narrowing. C6-C7: Disc osteophyte complex with uncovertebral joint hypertrophy and endplate ridging. Mild facet arthropathy. Mild central canal stenosis with slight contact of the cervical cord. Moderate RIGHT and mild LEFT bony foraminal narrowing. C7-T1: Tiny shallow central protrusion. Spinal canal and foramen are patent. Visualized posterior fossa structures: Normal. Mastoid air cells are well aerated. Chronic emphysematous changes in the lung apices. IMPRESSION: 1. Straightening of the normal cervical lordosis with moderate spondylitic changes. Slight anterolisthesis C2 on C3. Alignment is similar to 2010. 2. Mild to moderate central canal stenosis C3-C4 C4-C5 C5-C6 and C6-C7 with small disc osteophyte complexes with slight indentation on cervical cord. Mild to moderate central canal stenosis at C4-C5 and C5-C6. 3. Multilevel mild to moderate bony foraminal narrowing worse at LEFT C4-C5, LEFT C5-C6, RIGHT C6-C7 [facility] [id number] IMPRESSION: 1. Uncomplicated cervical myelogram. 2. Please see CT myelogram report for anatomic detail
--- NOTE | 2023-06-24 09:00 | IR_ITS ---
WS: [id number] MYELOGRAM CERVICAL SPINE Fluoroscopic guided cervical myelogram CLINICAL INFORMATION: FOR MYELOGRAM PRE IMAGING COMPARISON: None. TECHNIQUE: The procedure, including risks, benefits, and complications, were discussed with the patie nt who agreed to proceed. A timeout was performed to confirm correct patient, procedure, and site. Using sterile technique, the patient was prepped and draped in the usual sterile fashion. After admin istration of local anesthesia using 1% preservative-free lidocaine and using fluoroscopic guidance, a 22-gauge spinal needle was advanced into the subarachnoid space at the L3-L4 level. Subsequently 12 cc of Omnipaque 240 was administered into the thecal sac. The needle was removed and hemostasis was a chieved. Subsequently the table was tilted down and contrast flowed freely into the cervical spine. S pot fluoroscopic images were obtained. FLUOROSCOPIC TIME: 2min [id number] # of spot films: 11 Spot fluoroscopic images demonstrate 5 nonrib-bearing lumbar vertebral bodies. Moderate to advanced s pondylitic changes cervical spine with facet arthropathy. Metallic wire-like foreign object in the so ft tissues LEFT neck. Please see CT myelogram report for additional detail. IR/IR myelogram sp cervical [id number] IMPRESSION: 1. Uncomplicated cervical myelogram. 2. Please see CT myelogram report for anatomic detail
--- NOTE | 2023-06-24 09:40 | CT_ITS ---
WS: [id number] MYELOGRAM CERVICAL SPINE Fluoroscopic guided cervical myelogram CLINICAL INFORMATION: FOR MYELOGRAM PRE IMAGING COMPARISON: None. TECHNIQUE: The procedure, including risks, benefits, and complications, were discussed with the patie nt who agreed to proceed. A timeout was performed to confirm correct patient, procedure, and site. Using sterile technique, the patient was prepped and draped in the usual sterile fashion. After admin istration of local anesthesia using 1% preservative-free lidocaine and using fluoroscopic guidance, a 22-gauge spinal needle was advanced into the subarachnoid space at the L3-L4 level. Subsequently 12 cc of Omnipaque 240 was administered into the thecal sac. The needle was removed and hemostasis was a chieved. Subsequently the table was tilted down and contrast flowed freely into the cervical spine. S pot fluoroscopic images were obtained. FLUOROSCOPIC TIME: 2min [id number] # of spot films: 11 Spot fluoroscopic images demonstrate 5 nonrib-bearing lumbar vertebral bodies. Moderate to advanced s pondylitic changes cervical spine with facet arthropathy. Metallic wire-like foreign object in the so ft tissues LEFT neck. Please see CT myelogram report for additional detail.
== END 2023-06-24 09:13 | disposition home or self-care (01) ==
PROVIDERS: PCP Family Medicine; Visit Provider Nurse Practitioner Family
DX: M47.812 Spondylosis without myelopathy or radiculopathy, cervical region (principal); M47.817 Spondylosis without myelopathy or radiculopathy, lumbosacral region; M48.061 Spinal stenosis, lumbar region without neurogenic claudication; M51.26 Other intervertebral disc displacement, lumbar region; M48.02 Spinal stenosis, cervical region; M25.78 Osteophyte, vertebrae
CPT/HCPCS: 62302; 72126; 72131; Q9966

== ENCOUNTER → 2023-07-09 12:15 | Outpatient (BNVA) | payer MEDICARE, MEDICAID, SELFPAY | PROVIDERS: PCP Family Medicine; Referring Provider Family Medicine; Visit Provider Internal Medicine Pulmonary Disease | DX: J44.9 Chronic obstructive pulmonary disease, unspecified (principal); F17.200 Nicotine dependence, unspecified, uncomplicated | CPT/HCPCS: 71046; 99204 ==

== ENCOUNTER → 2023-07-09 15:00 | Outpatient (BNVA) | payer MEDICARE, MEDICAID, SELFPAY | PROVIDERS: PCP Family Medicine; Visit Provider Physician Assistant | DX: M50.30 Other cervical disc degeneration, unspecified cervical region (principal); M47.812 Spondylosis without myelopathy or radiculopathy, cervical region; M47.816 Spondylosis without myelopathy or radiculopathy, lumbar region | CPT/HCPCS: 99214 ==

== ENCOUNTER → 2023-09-14 16:20 | Outpatient (BNVA) | payer MEDICARE, MEDICAID, SELFPAY | PROVIDERS: PCP Family Medicine; Visit Provider Family Medicine | DX: E11.9 Type 2 diabetes mellitus without complications (principal); M47.812 Spondylosis without myelopathy or radiculopathy, cervical region; M47.816 Spondylosis without myelopathy or radiculopathy, lumbar region; M54.12 Radiculopathy, cervical region; E11.40 Type 2 diabetes mellitus with diabetic neuropathy, unspecified | CPT/HCPCS: 80053; 83036 ==

== ENCOUNTER → 2023-11-11 08:31 | Outpatient (BNVA) | payer MEDICARE, MEDICAID, SELFPAY | PROVIDERS: PCP Family Medicine; Visit Provider Anesthesiology Pain Medicine | DX: M54.12 Radiculopathy, cervical region; M50.30 Other cervical disc degeneration, unspecified cervical region; M47.812 Spondylosis without myelopathy or radiculopathy, cervical region; M48.02 Spinal stenosis, cervical region | CPT/HCPCS: 99204 ==

== ENCOUNTER → 2023-11-19 09:25 | Outpatient (BNVA) | payer MEDICARE, MEDICAID, SELFPAY | PROVIDERS: PCP Family Medicine; Visit Provider Anesthesiology Pain Medicine | DX: M79.18 Myalgia, other site (principal); M25.551 Pain in right hip; M54.12 Radiculopathy, cervical region; M50.30 Other cervical disc degeneration, unspecified cervical region; M47.812 Spondylosis without myelopathy or radiculopathy, cervical region | CPT/HCPCS: 20553; 99214; J1030; J3490 ==

== ENCOUNTER → 2024-02-02 09:48 | Outpatient (BNVA) | payer OTHER, MEDICAID, SELFPAY | PROVIDERS: PCP Family Medicine; Visit Provider Podiatrist Foot & Ankle Surgery | DX: E11.621 Type 2 diabetes mellitus with foot ulcer; L97.512 Non-pressure chronic ulcer of other part of right foot with fat layer exposed; E11.42 Type 2 diabetes mellitus with diabetic polyneuropathy; G62.9 Polyneuropathy, unspecified; M86.9 Osteomyelitis, unspecified; Z79.4 Long term (current) use of insulin | CPT/HCPCS: 73630 ==

== ENCOUNTER 2024-02-02 12:33 | Inpatient (IN) | payer MEDICARE, MEDICAID, SELFPAY ==
[2024-02-02] VITALS (7 sets, daily range): BP systolic 116–168; BP diastolic 60–114; PULSE 98–113; RESP 18–20; TEMP 36.7–36.8; O2SAT 96–99; BMI 25.9
--- NOTE | 2024-02-02 12:38 | XRR_ITS ---
PROCEDURE INFORMATION: Exam: XR Right Foot Exam date and time: 02/02/2024 1:01 PM Age: 58 years old Clinical indication: Other: RT foot infection; Additional info: Injury TECHNIQUE: Imaging protocol: Radiologic exam of the right foot. Views: 3 or more views. COMPARISON: CR XR foot RT min 3V* [id number] 02/02/2024 9:54 AM FINDINGS: Bones/joints: Erosion and osseous destruction of the 5th proximal and distal phalanges. No acute fracture. Joint spaces are preserved. Soft tissues: Moderate soft tissue swelling of the 5th toe. XR/XR foot RT min 3V* [id number] IMPRESSION: Osteomyelitis of the 5th proximal and distal phalanges.
[2024-02-02 13:17] LABS: Glucose Point of Care 519 mg/dL (70-110)
--- NOTE | 2024-02-02 13:43 | ECG_ITS ---
[facility] Test Date: 2024-02-02 Pat Name: Celestino Romero Department: Room: Gender: Male Want Ad Supervisor: : 1965 Requested By: Ken Ha Order Number: [id number] Pola MD: Faith Falcon M.D. Measurements Intervals [place] Rate: 105 P: 74 [place]: 153 QRS: 72 QRSD: 92 T: 67 QT: 327 QTc: 433 Interpretive Statements SINUS TACHYCARDIA ABNORMAL RHYTHM ECG Compared to ECG 04/16/2023 08:32:12 Ectopic atrial rhythm no longer present Left posterior fascicular block no longer present Electronically Signed On 02-02-2024 18:28:36 TOW MOTOR DRIVER by Faith Falcon M.D. [id number]
--- NOTE | 2024-02-02 13:43 | XRR_ITS ---
PROCEDURE INFORMATION: Exam: XR Chest Exam date and time: 02/02/2024 2:01 PM Age: 58 years old Clinical indication: Cough and dyspnea; Additional info: Dyspnea/cough TECHNIQUE: Imaging protocol: Radiologic exam of the chest. Views: 1 view. COMPARISON: CR XR chest 2V* [id number] 07/09/2023 12:39 PM FINDINGS: Lungs: No consolidation. Pleural spaces: No sizable pleural effusion or pneumothorax. Heart/Mediastinum: No cardiomegaly. Bones/joints: Unremarkable. XR/XR chest 1V portable [id number] IMPRESSION: No acute intrathoracic findings.
[2024-02-02 13:54] LABS: Basophils % 0.4 %; Eosinophils # 0.1 10^3/uL (0.0-0.8); Eosinophils % 1.3 %; Lymphocytes # 2.6 10^3/uL (0.8-4.8); Lymphocytes % 31.4 %; Mean Corpuscular HGB Conc 34.1 g/dL (30-55); Mean Corpuscular Hemoglobin 29.5 pg (27-33); Mean Corpuscular Volume 86.6 fl (82-101); Mean Platelet Volume 10.6 fL (7.4-10.4); Monocytes # 0.6 10^3/uL (0.2-0.9); Neutrophils # 4.93 10^3/uL (1.8-7.7); Neutrophils % 59.5 %; Nucleated Red Blood Cells % 0 %; Platelet Count 367 10^3/cmm (157-399); Red Blood Count 5.08 10^6/uL (3.85-5.65); Red Cell Distribution Width 12.5 % (12.1-15.1); White Blood Count 8.28 10^3/uL (3.29-11.43)
--- NOTE | 2024-02-02 13:54 | ED_ITS ---
HPI - Wound/Laceration 2 General: Chief Complaint: Wound/Laceration Stated Complaint: right toe infection Time Seen by Provider: 02/02/24 13:43 Source: patient Mode of arrival: ambulatory History of Present Illness: 58-year-old male presents emergency room after having seen podiatry this morning he is having significant discoloration and drainage from his right fifth toe. X-ray done earlier today showed severe osteomyelitis. Patient is diabetic he has been out of his insulin for several days Onset (ago): day(s) Extremity Location: Right: foot Place: home Patient tetanus UTD: No Associated symptoms: Denies chills or fever(s) Review of Systems 2 Const: Denies: fever(s) or chills Card: Denies: chest pain Resp: Denies: dyspnea GI: Denies: abdominal pain : Denies: dysuria, urinary frequency or urinary urgency Musc: Denies: neck pain or back pain Skin/Breast: Denies: rash PFSH ED 2 PFSH: Medical History Insulin dependent diabetes mellitus Coronary artery disease Hypercholesteremia Open wound of index finger Diabetic peripheral neuropathy associated with type 2 diabetes mellitus Acute osteomyelitis of toe of right foot Diabetic foot ulcer Osteomyelitis Peripheral neuropathy Tobacco use disorder, moderate, dependence Polyuria History of echocardiogram 11/2022 EF 55-60%, no pulmonary hypertension Degenerative disc disease, cervical Erectile dysfunction Diabetic neuropathy COPD (chronic obstructive pulmonary disease) Nicotine dependence Diabetes Surgical History H/O hand surgery right Family History Father Cancer Father had GI cancer, was diagnosed at age 60 Social History Smoking and tobacco/nicotine status: current every day tobacco/nicotine user cigarettes [ Other cigarette details: 1/2PPD. liftime average 2PPD, 86PY] Alcohol intake: never Substance/Drug Use: never Lives independently: Yes Housing: House Current occupational status: disabled Special shyam needs: No Agree to transfusion: Yes Physical Exam 2 Const: GENERAL APPEARANCE: cooperative and comfortable O RIENTATION/CONSCIOUSNESS: Yes awake, Yes oriented to person, Yes oriented to place and Yes oriented to time HENMT: COMMON NORMALS: normocephalic, atraumatic and hearing grossly normal bilaterally HEAD & SCALP: normocephalic and atraumatic Resp: COMMON NORMALS: normal respiratory effort, No retractions, No use of accessory muscles and clear to auscultation bilaterally AUSCULTATION: clear to auscultation bilaterally Cardio: COMMON NORMALS: regular rate, regular rhythm and No murmurs present (Cardio) RATE: regular rate RHYTHM: regular rhythm GI: COMMON NORMALS: Soft to palpation and No hepatosplenomegaly present A USCULTATION: Yes normoactive bowel sounds PALPATION: Yes Soft to palpation, No Tenderness to palpation present (GI), No Guarding due to palpation present (GI) and Yes No hepatosplenomegaly present Extremity: OTHER: Right forefoot is inflamed appears to have significant cellulitis extending along the distal portions of the metatarsals on the sole of the foot there is an open wound that appears to be tunneled proximally on the right fifth toe. Much of the tissue was blanched. Neuro: SENSORIUM/ORIENTATION: Yes oriented to person, Yes oriented to place and Yes oriented to time Skin: COMMON NORMALS: no rashes or lesions noted GENERAL SKIN EXAM: no rashes or lesions noted Course 2 Vital Signs: Vital signs: Vital Signs Temperature 98.4 F 02/05/24 14:05 Pulse Rate 94 02/05/24 14:05 Respiratory Rate 18 02/05/24 14:05 Blood Pressure 146/51 02/05/24 14:05 Pulse Oximetry 93 02/05/24 14:05 Oxygen Delivery Me thod Room Air 02/05/24 12:00 MDM - Wound/Laceration Medical Decision Making Apparent cellulitis of the right foot with a tunneling wound on the right fifth toe. Ulcer on right second hand as well. Diabetes mellitus with poor control. Patient has been out of insulin for a time. Will admit started on IV antibiotics podiatry consult Medical Records I reviewed the patient's medical records. Lab Data I reviewed the patient's lab results. 02/05/24 05:58 02/05/24 05:58 Radiology Impressions Chest X-Ray 02/02/24 13:43 IMPRESSION: No acute intrathoracic findings. Laboratory Results WBC 8.28 10^3/uL (3.29-11.43) 02/02/24 13:32 RBC 5.08 10^6/uL (3.85-5.65) 02/02/24 13:32 Hgb 15.00 g/dL (11.27-16.99) 02/02/24 13:32 Hct 44.0 % (37-53) 02/02/24 13:32 MCV 86.6 fl (82-101) 02/02/24 13:32 MCH 29.5 pg (27-33) 02/02/24 13:32 MCHC 34.1 g/dL (30-55) 02/02/24 13:32 RDW 12.5 % (12.1-15.1) 02/02/24 13:32 Plt Count 367 10^3/cmm (157-399) 02/02/24 13:32 MPV 10.6 fL (7.4-10.4) H 02/02/24 13:32 Neut % (Auto) 59.5 % 02/02/24 13:32 Lymph % (Auto) 31.4 % 02/02/24 13:32 [place] % (Auto) 7.0 % 02/02/24 13:32 Eos % (Auto) 1.3 % 02/02/24 13:32 Baso % (Auto) 0.4 % 02/02/24 13:32 Neut # (Auto) 4.93 10^3/uL (1.8-7.7) 02/02/24 13:32 Lymph # (Auto) 2.6 10^3/uL (0.8-4.8) 02/02/24 13:32 [place] # (Auto) 0.6 10^3/uL (0.2-0.9) 02/02/24 13:32 Eos # (Auto) 0.1 10^3/uL (0.0-0.8) 02/02/24 13:32 Baso # (Auto) 0.0 10^3/uL (0.0-0.1) 02/02/24 13:32 Nucleated RBC % (auto) 0 % 02/02/24 13:32 Nucleated RBCs # 0.0 /100WBC 02/02/24 13:32 ESR 35 mm/hr (0-10) H 02/02/24 13:32 Specimen Type Arterial 02/02/24 14:00 Sample Site Brachial, left 02/02/24 14:00 ABG pH 7.39 (7.35-7.45) 02/02/24 14:00 ABG pCO2 41.6 mmHg (35-45) 02/02/24 14:00 ABG pO2 75.8 mmHg (80.0-100.0) L 02/02/24 14:00 ABG HCO3 25.1 mmol/L (22-26) 02/02/24 14:00 ABG O2 Saturation 97.2 02/02/24 14:00 ABG Base Excess 0.0 mmol/L (-2.0-2.0) 02/02/24 14:00 Jay Test N/a 02/02/24 14:00 A-a O2 Gradient 2.7 mmHg (5-10) L 02/02/24 14:00 Hematocrit 41.2 % (42-52) L 02/02/24 14:00 Hgb O2 Saturation 86.7 % (95-100) L 02/02/24 14:00 Carboxyhemoglobin 10.1 %THgb (0.4-20.1) 02/02/24 14:00 Methemoglobin 0.7 % (0.4-1.5) 02/02/24 14:00 Total Hemoglobin 13.4 g/dL (14-18) L 02/02/24 14:00 Sodium 134.0 mmol/L (131-143) 02/02/24 14:00 Potassium 3.7 mmol/L (3.5-5.0) 02/02/24 14:00 Glucose 474.0 mg/dL (70-115) H 02/02/24 14:00 Ionized Calcium 1.1 mmol/L (1.1-1.4) 02/02/24 14:00 O2 Delivery Device Room air 02/02/24 14:00 Stave Cutter ID Gd 02/02/24 14:00 Sodium 132 mmol/L (136-145) L 02/02/24 13:32 Potassium 3.9 mmol/L (3.5-5.1) 02/02/24 13:32 Chloride 92 mmol/L (98-107) L 02/02/24 13:32 Carbon Dioxide 27 mmol/L (22-29) 02/02/24 13:32 Anion Gap 16.9 (5-19) 02/02/24 13:32 BUN 8 mg/dL (6-20) 02/02/24 13:32 Creatinine 0.8 mg/dL (0.7-1.2) 02/02/24 13:32 GFR Calculation 99.3 mL/min (90-130) 02/02/24 13:32 Glucose 464 mg/dL (65-115) H 02/02/24 13:32 POC Glucose 384 mg/dL (70-110) H 02/02/24 14:32 Calculated Osmolality 293 mOsm/kg (285-295) 02/02/24 13:32 Lactic Acid 2.5 mmol/L (0.5-2.2) H 02/02/24 13:32 Calcium 8.9 mg/dL (8.5-10.5) 02/02/24 13:32 Magnesium 1.9 mg/dL (1.7-2.3) 02/02/24 13:32 Total Bilirubin 0.2 mg/dL (0.15-1.2) 02/02/24 13:32 AST 9 U/L (0-40) 02/02/24 13:32 ALT 10 U/L (0-41) 02/02/24 13:32 Alkaline Phosphatase 126 U/L (40-130) 02/02/24 13:32 Creatine Kinase 50 U/L (39-308) 02/02/24 13:32 C-Reactive Protein 11.9 mg/L (0.0-4.9) H 02/02/24 13:32 Total Protein 7.8 g/dL (6.6-8.7) 02/02/24 13:32 Albumin 3.9 g/dL (3.5-5.2) 02/02/24 13:32 Globulin 3.9 g/dL (1.3-4.6) 02/02/24 13:32 Serum Ketones Negative (Negative) 02/02/24 13:32 All radiology interpretation(s) finalized by discharge Discharge Plan Discharge Patient Disposition: Admitted As Inpatient Admit Provider: Marychuy Neely Clinical Impression: Diabetic foot ulcer, Osteomyelitis of fifth toe of right foot, Diabetes mellitus Condition: Stable Coding Level of Care Code ED Environmental [employer] Specialist for Breezy Gonzalez
[2024-02-02] MEDS: sodium chloride 0.9% 1,000 ML 999 ML IV (13:59)
[2024-02-02] MEDS: vancomycin 1,000 MG in sodium chloride 0.9% 250 ML 250 MG IV (14:05)
--- NOTE | 2024-02-02 14:05 | PC.PHAR ---
PT HAS BEEN OUT OF BOTH OF HIS INSULINS FOR APPROXIMATELY 2 WEEKS- NO REFRIGERATOR TO KEEP IT IN
[2024-02-02 14:06] LABS: Erythrocyte Sedimentation Rate 35 mm/hr (0-10)
[2024-02-02 14:07] LABS: Ketone (Acetest) Serum Negative (Negative)
[2024-02-02 14:08] LABS: Alanine Aminotransferase 10 U/L (0-41); Albumin Level 3.9 g/dL (3.5-5.2); Alkaline Phosphatase 126 U/L (40-130); Anion Gap 16.9 (5-19); Aspartate Amino Transferase 9 U/L (0-40); Blood Urea Nitrogen 8 mg/dL (6-20); C Reactive Protein 11.9 mg/L (0.0-4.9); Calcium 8.9 mg/dL (8.5-10.5); Carbon Dioxide 27 mmol/L (22-29); Chloride 92 mmol/L (98-107); Creatine Phosphokinase 50 U/L (39-308); Creatinine Clr Calc Pharmacy 83.3154; Globulin 3.9 g/dL (1.3-4.6); Glomerular Filtration Rate 99.3 mL/min (90-130); Glucose 464 mg/dL (65-115); Magnesium 1.9 mg/dL (1.7-2.3); Osmolality Calculated 293 mOsm/kg (285-295); Potassium 3.9 mmol/L (3.5-5.1); Sodium 132 mmol/L (136-145); Total Bilirubin 0.2 mg/dL (0.15-1.2); Total Protein 7.8 g/dL (6.6-8.7)
[2024-02-02 14:09] LABS: Lactic Sepsis W/Reflex 2.5 mmol/L (0.5-2.2)
[2024-02-02] MEDS: insulin regular-human 100 units/1 mL 10 UNIT IVP (14:12)
[2024-02-02 14:18] LABS: ABG PCO2 41.6 mmHg (35-45); ABG PH Result 7.39 (7.35-7.45); Alveolar-Arterial Oxygen Gradi 2.7 mmHg (5-10); Arterial Blood Gas Hematocrit 41.2 % (42-52); Blood Gas Operator Identificat GD; Blood Gas Sample Site Brachial, left; Blood Gas Sample Type Arterial; Carboxyhemoglobin 10.1 %THgb (0.4-20.1); HCO3 ABG 25.1 mmol/L (22-26); HGB O2 Sat 86.7 % (95-100); Ionized Calcium Level - ABG 1.1 mmol/L (1.1-1.4); Methemoglobin 0.7 % (0.4-1.5); Oxygen Device ROOM AIR; Oxygen Saturation ABG 97.2; PO2 ABG 75.8 mmHg (80.0-100.0); Potassium Level - ABG 3.7 mmol/L (3.5-5.0); Total Hemoglobin 13.4 g/dL (14-18)
--- NOTE | 2024-02-02 14:18 | PC.NURSE ---
pt cut right 5th toe about a month ago, pt is diabetic. states has been out of insulin x2 weeks. reports increased redness/decreased sensation to right foot as well as increased swelling. pedal pulse 1+ right foot. lctab. heart sounds s1s2. abd soft/nontender. bowel sounds present. denies urinary sx. denies fever/dizziness. sent here from pcp following an xray
[2024-02-02 14:36] LABS: Glucose Point of Care 384 mg/dL (70-110)
--- NOTE | 2024-02-02 15:09 | P.CONIM_ITS ---
Providers/Reason For Consult 2 Consulting Physician/Specialty*: Rc Cano D.P.M./podiatry Reason for Consult*: Osteomyelitis right fifth toe Attending Physician: Marychuy Neely MD Primary Care Provider: Pedro Waller MD History of Present Illness History of Present Illness Celestino Romero is a 58 year old male admitted to the hospital service for acute osteomyelitis right fifth toe. Patient states that this began with wearing a poor/tight fitting pair of tennis shoes, started out as a blister and then progressed to a wound. He was seen in podiatry clinic today and was directed to the emergency department for admission to the hospital service for IV antibiotics and surgical intervention. Patient is a insulin-dependent diabetic male who has been noncompliant with his diabetic medications. Patient currently smokes. Review of Systems 2 General: Reports: 10 or more systems reviewed and unremarkable except in HPI and below Const: Denies: fever(s) or chills Eyes: Denies: change in vision Card: Denies: chest pain or palpitations Resp: Denies: dyspnea or productive cough GI: Denies: abdominal pain, nausea or vomiting : Denies: flank pain Musc: Reports: extremity swelling, joint stiffness and deformity Skin/Breast: Reports: erythema, sores, changes in skin color, dry skin, nail changes and change in hair Neuro: Reports: numbness in extremities, sensory changes and difficulty walking Psych: Denies: suicidal ideation Endo: Denies: change in body appearance Dino/Lymph: Denies: tender lymph nodes Medications/Allergies Home Medications Medication Instructions Recorded Confirmed Last Taken Type blood sugar diagnostic (Blood #50 ea 09/24/22 02/02/24 Unknown Rx Glucose Test strips) blood-glucose meter (OneTouch #1 ea 11/12/22 02/02/24 Unknown Rx Ultra2 Meter) diclofenac sodium 75 mg 75 mg PO Q12H PRN pain #60 tabs 04/28/23 02/02/24 Unknown Rx tablet,delayed release ipratropium bromide 0.02 % 2.5 ml inhalation Q6H PRN 07/09/23 02/02/24 Unknown Rx solution for inhalation shortness of breath or wheezing #75 mL albuterol sulfate 2.5 mg/3 mL 2.5 mg (3 mL) inhalation QID PRN 07/16/23 02/02/24 Unknown Rx (0.083 %) solution for nebulization shortness of breath or wheezing #180 mL nebulizer, tubing, supplies #1 ea 07/16/23 02/02/24 Unknown Rx blood-glucose meter,continuous #1 ea 09/14/23 02/02/24 Unknown Rx (Dexcom G6 Roofing Technician) blood-glucose sensor (Dexcom G6 #3 ea 09/14/23 02/02/24 Unknown Rx Sensor device) blood-glucose transmitter (Dexcom #1 ea 09/14/23 02/02/24 Unknown Rx G6 Transmitter device) Diabetic shoes #1 ea 10/13/23 02/02/24 Unknown Rx sildenafil 25 mg tablet See Rx Instructions .Route 10/13/23 02/02/24 Unknown Rx .COMPLEX #30 tabs albuterol sulfate 90 mcg/actuation 1 inh inhalation QID PRN shortness 12/07/23 02/02/24 Unknown Rx aerosol inhaler of breath or wheezing #8.5 grams budesonide 160 mcg-glycopyr 9 2 inh inhalation BID #10.7 grams 12/07/23 02/02/24 02/02/24 Rx mcg-formot 4.8 mcg/actuation HFA inhaler ([employer]) lancets 33 gauge (OneTouch Delica #100 ea 12/07/23 02/02/24 Unknown Rx Plus Lancet) pregabalin 75 mg capsule 75 mg PO BID #60 caps 01/05/24 02/02/24 02/01/24 Rx morphine 15 mg tablet,extended 15 mg PO Q12H 30 days #14 tabs 01/18/24 02/02/24 02/01/24 Rx release atorvastatin 40 mg tablet (Lipitor) 40 mg PO QPM 02/02/24 02/02/24 02/01/24 History glipizide 10 mg tablet 10 mg PO DAILY 02/02/24 02/02/24 02/01/24 History insulin glargine 100 unit/mL (3 40 unit (0.4 mL) SUBCUT BID #15 mL 02/02/24 02/02/24 Unknown Rx mL) subcutaneous pen (Basaglar KwikPen U-100 Insulin) insulin lispro 100 unit/mL 8 unit (0.08 mL) SUBCUT TID #15 mL 02/02/24 02/02/24 Unknown Rx subcutaneous pen Allergies Allergy/AdvReac Type Severity Reaction Status Date / Time No Known Allergies Allergy Verified 02/02/24 09:25 PFSH Acute 2 PFSH: Medical History (Updated 02/02/24 @ 19:03 by Rc Cano DPM) History of echocardiogram 11/2022 EF 55-60%, no pulmonary hypertension Degenerative disc disease, cervical Erectile dysfunction Coronary artery disease Hypercholesteremia Diabetic neuropathy COPD (chronic obstructive pulmonary disease) Nicotine dependence Diabetes Surgical History (Updated 02/02/24 @ 18:34 by Marychuy Neely MD) H/O hand surgery right Family History Father Cancer Father had GI cancer, was diagnosed at age 60 Social History Smoking and tobacco/nicotine status: current every day tobacco/nicotine user cigarettes [ Other cigarette details: 1/2PPD. liftime average 2PPD, 86PY] Alcohol intake: never Substance/Drug Use: never Lives independently: Yes Housing: House Current occupational status: disabled Special shyam needs: No Agree to transfusion: Yes Vitals/I&O/Wt Last Vital Signs Temp 98.1 F 02/02/24 13:05 Pulse 111 H 02/02/24 14:15 Resp 20 H 02/02/24 14:15 BP 164/114 02/02/24 14:15 Pulse Ox 99 02/02/24 14:15 O2 Del Method Room Air 02/02/24 14:15 Weight last 48 hrs Weight 142 lb Physical Exam 2 Narrative: GENERAL: Patient is alert and oriented ?3 and in no acute distress. The following is a focused bilateral lower extremity exam. VASCULAR: Dorsalis pedis palpable bilaterally. Posterior tibial arteries palpable. Capillary refill time less than 5 seconds to the distal hallux bilaterally. Calf is supple and nontender proximally and distally. Decreased pedal hair growth bilaterally. Rubor to the bilateral forefoot. NEUROLOGICAL: Protective sensation intact 0/10 sites, tested with [place] monofilament to bilateral feet. DERMATOLOGICAL: Full-thickness wound right fifth toe at the lateral aspect of the proximal interphalangeal joint probes directly to bone with localized periwound erythema. Wound limited to breakdown of skin at the dorsal aspect of the left fourth and fifth toe without surrounding erythema, warmth or drainage. Toenails 1, 2, 3, 4, 5 left and right foot are elongated, thickened and discolored with subungual debris. Lower extremity integument is atrophic with decreased texture and turgor, has thin shiny appearance. MUSCULOSKELETAL: No crepitus with palpation of soft tissue to the right fifth toe. Hammertoe of the fifth digit bilaterally. Pes planus foot type bilaterally. Muscle strength +5 in all 3 planes bilateral foot and ankle. Data 02/02/24 13:32 02/02/24 13:32 Micro: Microbiology 02/02/24 14:01 Blood Culture - Preliminary Blood SPECIMEN COLLECTED 02/02/24 13:32 Blood Culture - Preliminary Blood SPECIMEN COLLECTED A&P Assessment and plan (1) Acute osteomyelitis of toe of right foot: (2) Diabetic peripheral neuropathy associated with type 2 diabetes mellitus: Plan 58-year-old female presents with acute osteomyelitis right fifth toe X-ray right foot 3 view shows bony destruction of the proximal, intermediate and distal phalanx right fifth toe. No involvement of the fifth metatarsal on x- ray, no soft tissue edema or foreign body. On admission CRP 11.9 mg/L, ESR 35 mm/h, no leukocytosis. Right fifth toe wound probes to bone Admitted to the hospital service and started on empiric IV antibiotics Noninvasive vascular studies to include FRIDA/TBI and PVR bilateral lower extremity Nonweightbearing right lower extremity may heel touch for transfers. Betadine wet-to-dry dressing Wound culture taken in emergency department, planning on bone culture when surgery is performed. Scheduled for partial right fifth ray amputation February 04, 2024 7:00 AM Consult Attestations 2 Medical Necessity Statement: Acute osteomyelitis right fifth toe Coding Level of Care Code Acute Code for [facility] Diagnoses Acute osteomyelitis of toe of right foot M86.171 Diabetic peripheral neuropathy associated with type 2 diabetes mellitus E11.42
[2024-02-02 15:31] LABS: Reflex Lactate Order REFLEX LACTIC ORDERD
--- NOTE | 2024-02-02 16:27 | PM.HP ---
Providers/Chief Complaint Admitting Physician: Marychuy Neely MD Primary Care Provider: Pedro Waller MD Chief Complaint: right toe infection History of Present Illness Celestino Romero is a 58 year old male who presented to the emergency room from podiatry clinic with a wound to his right foot. The wound has been present for several weeks. He had been wearing boots that were too tight. He kept thinking that the wound would improve but it has not. He was seen today in podiatry clinic after referral from pain clinic to have the foot wound evaluated. Wound was probed down to the bone with evidence of bone necrosis per clinic note. Patient was sent to the emergency room for further evaluation and anticipated admission. Blood sugars were noted to be more than 500. He is a known diabetic. He is on insulin and glipizide. Last hemoglobin A1c was more than 10 although this was an improvement from prior values around 12. He has never had diabetic foot wounds before but does have stocking glove peripheral neuropathy. He was seen by Dr. Cano in the emergency room. Plan is for initiation of antibiotics and surgical intervention. In addition to the right foot wound involving the fifth toe, patient has a scabbed over wound with some swelling to the fourth digit on the left foot. No report of any fevers recently. No complaints of changes in bowel or bladder function. Breathing has not been great but that is baseline for him. He continues to smoke and has known COPD. He has had a previous hand surgery without any perioperative complications. Medical records indicate a history of coronary artery disease but it does not sound like he has required cardiac intervention. No recent issues with chest pain exertional or otherwise. No personal history of kidney dysfunction or cerebrovascular disease. No bleeding or clotting disorders. He does not drink or use any drugs. In the ER he received a dose of vancomycin and was given some fluid bolus with improvement in heart rate from a peak of 115 or so to less than 100. Blood pressure and other vital signs have been stable. He is being admitted to the hospitalist service. History is obtained from him. Review of Systems General: Reports: Other (ROS as per HPI or as otherwise noted here) Medications/Allergies Home Medications Medication Instructions Recorded Confirmed Last Taken Type blood sugar diagnostic (Blood #50 ea 09/24/22 02/02/24 Unknown Rx Glucose Test strips) blood-glucose meter (OneTouch #1 ea 11/12/22 02/02/24 Unknown Rx Ultra2 Meter) diclofenac sodium 75 mg 75 mg PO Q12H PRN pain #60 tabs 04/28/23 02/02/24 Unknown Rx tablet,delayed release ipratropium bromide 0.02 % 2.5 ml inhalation Q6H PRN 07/09/23 02/02/24 Unknown Rx solution for inhalation shortness of breath or wheezing #75 mL albuterol sulfate 2.5 mg/3 mL 2.5 mg (3 mL) inhalation QID PRN 07/16/23 02/02/24 Unknown Rx (0.083 %) solution for nebulization shortness of breath or wheezing #180 mL nebulizer, tubing, supplies #1 ea 07/16/23 02/02/24 Unknown Rx blood-glucose meter,continuous #1 ea 09/14/23 02/02/24 Unknown Rx ([employer] G6 [employer] Specialist) blood-glucose sensor (Dexcom G6 #3 ea 09/14/23 02/02/24 Unknown Rx Sensor device) blood-glucose transmitter (Dexcom #1 ea 09/14/23 02/02/24 Unknown Rx G6 Transmitter device) Diabetic shoes #1 ea 10/13/23 02/02/24 Unknown Rx sildenafil 25 mg tablet See Rx Instructions .Route 10/13/23 02/02/24 Unknown Rx .COMPLEX #30 tabs albuterol sulfate 90 mcg/actuation 1 inh inhalation QID PRN shortness 12/07/23 02/02/24 Unknown Rx aerosol inhaler of breath or wheezing #8.5 grams budesonide 160 mcg-glycopyr 9 2 inh inhalation BID #10.7 grams 12/07/23 02/02/24 02/02/24 Rx mcg-formot 4.8 mcg/actuation HFA inhaler ([email or web address]) lancets 33 gauge (OneTouch Delica #100 ea 12/07/23 02/02/24 Unknown Rx Plus Lancet) pregabalin 75 mg capsule 75 mg PO BID #60 caps 01/05/24 02/02/24 02/01/24 Rx morphine 15 mg tablet,extended 15 mg PO Q12H 30 days #14 tabs 01/18/24 02/02/24 02/01/24 Rx release atorvastatin 40 mg tablet (Lipitor) 40 mg PO QPM 02/02/24 02/02/24 02/01/24 History glipizide 10 mg tablet 10 mg PO DAILY 02/02/24 02/02/24 02/01/24 History insulin glargine 100 unit/mL (3 40 unit (0.4 mL) SUBCUT BID #15 mL 02/02/24 02/02/24 Unknown Rx mL) subcutaneous pen (Basaglar KwikPen U-100 Insulin) insulin lispro 100 unit/mL 8 unit (0.08 mL) SUBCUT TID #15 mL 02/02/24 02/02/24 Unknown Rx subcutaneous pen Allergies Allergy/AdvReac Type Severity Reaction Status Date / Time No Known Allergies Allergy Verified 02/02/24 09:25 PFSH Acute PFSH: Medical History (Updated 02/02/24 @ 19:03 by Rc Cano DPM) History of echocardiogram 11/2022 EF 55-60%, no pulmonary hypertension Degenerative disc disease, cervical Erectile dysfunction Coronary artery disease Hypercholesteremia Diabetic neuropathy COPD (chronic obstructive pulmonary disease) Nicotine dependence Diabetes Surgical History (Updated 02/02/24 @ 18:34 by Marychuy Neely MD) H/O hand surgery right Family History Father Cancer Father had GI cancer, was diagnosed at age 60 Social History Smoking and tobacco/nicotine status: current every day tobacco/nicotine user cigarettes [ Other cigarette details: 1/2PPD. liftime average 2PPD, 86PY] Alcohol intake: never Substance/Drug Use: never Lives independently: Yes Housing: House Current occupational status: disabled Special shyam needs: No Agree to transfusion: Yes Vitals/I&O/Wt Last Vital Signs Temp 98.0 F 02/02/24 15:50 Pulse 113 H 02/02/24 15:50 Resp 18 02/02/24 15:50 BP 120/60 02/02/24 15:50 Pulse Ox 97 02/02/24 15:50 O2 Del Method Room Air 02/02/24 15:50 02/02/24 02/02/24 02/02/24 06:59 14:59 22:59 Intake Total 1000 / 1000 Balance 1000 / 1000 Weight last 48 hrs Weight 64.41 kg Weight 64.41 kg Physical Exam Narrative: Patient is awake and alert, able to provide history. Normocephalic. Extraocular movements are intact. Moist oral mucosa. Edentulous. Lungs with scattered end expiratory wheezes. Episode of paroxysmal coughing towards the end of evaluation. Cardiovascular exam reveals a regular rate and rhythm, not currently tachycardic with rate around 90. Abdomen is soft. Right foot is erythematous with approximately 1 cm ulceration with scant amount of bleeding and oozing. On the left foot fourth digit top of the toe there is a scabbed over wound approximately 8 mm in diameter along with swelling of the digit. Sensation is decreased to light touch at both hands and feet in a stocking and glove pattern. Patient moves all extremities. Data 02/02/24 13:32 02/02/24 13:32 Other Labs: Old Laboratory Tests 09/14/23 16:20 Hemoglobin A1c 10.2 H Radiology Impressions Foot X-Ray 02/02/24 12:38 IMPRESSION: Osteomyelitis of the 5th proximal and distal phalanges. Chest X-Ray 02/02/24 13:43 IMPRESSION: No acute intrathoracic findings. Laboratory Results WBC 8.28 10^3/uL (3.29-11.43) 02/02/24 13:32 RBC 5.08 10^6/uL (3.85-5.65) 02/02/24 13:32 Hgb 15.00 g/dL (11.27-16.99) 02/02/24 13:32 Hct 44.0 % (37-53) 02/02/24 13:32 MCV 86.6 fl (82-101) 02/02/24 13:32 MCH 29.5 pg (27-33) 02/02/24 13:32 MCHC 34.1 g/dL (30-55) 02/02/24 13:32 RDW 12.5 % (12.1-15.1) 02/02/24 13:32 Plt Count 367 10^3/cmm (157-399) 02/02/24 13:32 MPV 10.6 fL (7.4-10.4) H 02/02/24 13:32 Neut % (Auto) 59.5 % 02/02/24 13:32 Lymph % (Auto) 31.4 % 02/02/24 13:32 Calvert % (Auto) 7.0 % 02/02/24 13:32 Eos % (Auto) 1.3 % 02/02/24 13:32 Baso % (Auto) 0.4 % 02/02/24 13:32 Neut # (Auto) 4.93 10^3/uL (1.8-7.7) 02/02/24 13:32 Lymph # (Auto) 2.6 10^3/uL (0.8-4.8) 02/02/24 13:32 [place]vert # (Auto) 0.6 10^3/uL (0.2-0.9) 02/02/24 13:32 Eos # (Auto) 0.1 10^3/uL (0.0-0.8) 02/02/24 13:32 Baso # (Auto) 0.0 10^3/uL (0.0-0.1) 02/02/24 13:32 Nucleated RBC % (auto) 0 % 02/02/24 13:32 Nucleated RBCs # 0.0 /100WBC 02/02/24 13:32 ESR 35 mm/hr (0-10) H 02/02/24 13:32 Specimen Type Arterial 02/02/24 14:00 Sample Site Brachial, left 02/02/24 14:00 ABG pH 7.39 (7.35-7.45) 02/02/24 14:00 ABG pCO2 41.6 mmHg (35-45) 02/02/24 14:00 ABG pO2 75.8 mmHg (80.0-100.0) L 02/02/24 14:00 ABG HCO3 25.1 mmol/L (22-26) 02/02/24 14:00 ABG O2 Saturation 97.2 02/02/24 14:00 ABG Base Excess 0.0 mmol/L (-2.0-2.0) 02/02/24 14:00 Jay Test N/a 02/02/24 14:00 A-a O2 Gradient 2.7 mmHg (5-10) L 02/02/24 14:00 Hematocrit 41.2 % (42-52) L 02/02/24 14:00 Hgb O2 Saturation 86.7 % (95-100) L 02/02/24 14:00 Carboxyhemoglobin 10.1 %THgb (0.4-20.1) 02/02/24 14:00 Methemoglobin 0.7 % (0.4-1.5) 02/02/24 14:00 Total Hemoglobin 13.4 g/dL (14-18) L 02/02/24 14:00 Sodium 134.0 mmol/L (131-143) 02/02/24 14:00 Potassium 3.7 mmol/L (3.5-5.0) 02/02/24 14:00 Glucose 474.0 mg/dL (70-115) H 02/02/24 14:00 Ionized Calcium 1.1 mmol/L (1.1-1.4) 02/02/24 14:00 O2 Delivery Device Room air 02/02/24 14:00 Service Center Assistant ID Gd 02/02/24 14:00 Sodium 132 mmol/L (136-145) L 02/02/24 13:32 Potassium 3.9 mmol/L (3.5-5.1) 02/02/24 13:32 Chloride 92 mmol/L (98-107) L 02/02/24 13:32 Carbon Dioxide 27 mmol/L (22-29) 02/02/24 13:32 Anion Gap 16.9 (5-19) 02/02/24 13:32 BUN 8 mg/dL (6-20) 02/02/24 13:32 Creatinine 0.8 mg/dL (0.7-1.2) 02/02/24 13:32 GFR Calculation 99.3 mL/min (90-130) 02/02/24 13:32 Glucose 464 mg/dL (65-115) H 02/02/24 13:32 POC Glucose 158 mg/dL (70-110) H 02/02/24 16:39 Calculated Osmolality 293 mOsm/kg (285-295) 02/02/24 13:32 Lactic Acid 2.5 mmol/L (0.5-2.2) H 02/02/24 13:32 Calcium 8.9 mg/dL (8.5-10.5) 02/02/24 13:32 Magnesium 1.9 mg/dL (1.7-2.3) 02/02/24 13:32 Total Bilirubin 0.2 mg/dL (0.15-1.2) 02/02/24 13:32 AST 9 U/L (0-40) 02/02/24 13:32 ALT 10 U/L (0-41) 02/02/24 13:32 Alkaline Phosphatase 126 U/L (40-130) 02/02/24 13:32 Creatine Kinase 50 U/L (39-308) 02/02/24 13:32 C-Reactive Protein 11.9 mg/L (0.0-4.9) H 02/02/24 13:32 Total Protein 7.8 g/dL (6.6-8.7) 02/02/24 13:32 Albumin 3.9 g/dL (3.5-5.2) 02/02/24 13:32 Globulin 3.9 g/dL (1.3-4.6) 02/02/24 13:32 Serum Ketones Negative (Negative) 02/02/24 13:32 Micro: Microbiology 02/02/24 14:01 Blood Culture - Preliminary Blood SPECIMEN COLLECTED 02/02/24 13:32 Blood Culture - Preliminary Blood SPECIMEN COLLECTED A&P Assessment and plan (1) Diabetic foot ulcer: Right fifth digit with evidence of cellulitis extending in the surrounding areas in addition to osteomyelitis. Left fourth digit with some edema and swelling to a lesser degree. Has been present for several weeks progressively worsening. Currently has slight elevation in lactic acid but normal white count. With the exception of some mild tachycardia that has responded to fluids, vital signs are stable. Meeting criteria for systemic inflammatory response syndrome but not septic 1 or set 3 sepsis criteria currently at the time of admission. Qualifiers: Diabetic foot ulcer location: toe Diabetes mellitus type: type 2 Laterality: right Non-pressure ulcer stage: with necrosis of bone Qualified Code(s): E11.621 - Type 2 diabetes mellitus with foot ulcer; L97.514 - Non-pressure chronic ulcer of other part of right foot with necrosis of bone (2) Osteomyelitis: Wound probed to bone it podiatry clinic today with evidence of necrosis. Qualifiers: Osteomyelitis type: other acute Osteomyelitis location: foot Laterality: right Qualified Code(s): M86.171 - Other acute osteomyelitis, right ankle and foot (3) Insulin dependent diabetes mellitus: With peripheral neuropathy. Chronically on long and short acting insulin. Also on glipizide. Last hemoglobin A1c in August of last year was 10.2, down from a peak of 12.1 in March 2023. (4) Coronary artery disease: Details not known. Is on chronic statin therapy. No current complaints of chest pain. (5) Hypercholesteremia: Chronically on statin therapy (6) COPD (chronic obstructive pulmonary disease): Related to longstanding tobacco use. Has scheduled and rescue inhalers. No recent increase in respiratory symptoms but has difficulty breathing at baseline. Qualifiers: COPD type: COPD with acute exacerbation Qualified Code(s): J44.1 - Chronic obstructive pulmonary disease with (acute) exacerbation (7) Tobacco use disorder, moderate, dependence: Typically smokes about half pack of cigarettes a day. (8) Degenerative disc disease, cervical: Chronically on extended release morphine, prescribed twice a day, recently been taking once a day and Lyrica at bedtime. Plan Right hand wound to second digit Inpatient admission Broad-spectrum antibiotics Follow-up pending cultures Continue IVFs tonight Podiatry consultation for surgical intervention Check hemoglobin A1c Long and short acting insulin Will monitor need to continue glipizide With planned surgical intervention, will continue patient's home extended release morphine and pregabalin, adding breakthrough pain control as needed Currently holding home Continue patient's home Breztri which she has available with him along with as needed albuterol Nicotine replacement offered but patient declined Patient reports that he has some new diabetic shoes on order. Triple antibiotic ointment to wound on right hand which we will monitor while here Recheck electrolytes in the morning Incentive spirometer Repeat EKG in am Plan for vascular ultrasound of lower extremities VTE prophylaxis: Lovenox GI Prophylaxis: PPI Antibiotics: Vancomycin and Zosyn initiated 3/4 Pending studies: Blood and wound cultures Telemetry: Currently ordered secondary to tachycardia and elevated lactic acid at presentation though if heart rate remains stable can likely remove tomorrow [place]: not currently indicated Line(s): peripheral IVs Disposition plan: Home with outpatient follow up to primary care provider, pain clinic and addition of podiatry/wound care for postoperative management. Had been in the process of having chronic narcotic therapy wean down. Will need appropriate adjustments for perioperative pain management. Code Status: Full Code Supportive care otherwise Findings, concerns and plans were discussed with patient and they were given an opportunity to ask questions Attestations Medical Necessity Statement*: Anticipated stay greater than two midnights inpatient with evidence of diabetic foot ulcer with osteomyelitis. On antibiotics and plan for surgical intervention. Coding Level of Care Code Acute Code for [facility] Fwd Diagnoses Diabetic ulcer of toe of right foot associated with type 2 diabetes mellitus, with necrosis of bone E11.621; L97.514 Diabetic foot ulcer location: toe Diabetes mellitus type: type 2 Laterality: right Non-pressure ulcer stage: with necrosis of bone Other acute osteomyelitis of right foot M86.171 Osteomyelitis type: other acute Osteomyelitis location: foot Laterality: right Insulin dependent diabetes mellitus Coronary artery disease I25.10 Hypercholesteremia E78.00 Chronic obstructive pulmonary disease with acute exacerbation J44.1 COPD type: COPD with acute exacerbation Tobacco use disorder, moderate, dependence F17.200 Degenerative disc disease, cervical M50.30
[2024-02-02] MEDS: piperacillin-tazobactam 3.375 GM in sodium chloride 0.9% (plus) 50 ML IV (16:48)
[2024-02-02] MEDS: sodium chloride 0.9% 1,000 ML 125 ML IV (16:48)
[2024-02-02 16:53] LABS: Glucose Point of Care 158 mg/dL (70-110)
[2024-02-02 17:16] LABS: Lactic Acid level (Lactate) 1.5 mmol/L (0.5-2.2)
[2024-02-02] MEDS: atorvastatin 40 mg Tablet PO (17:17)
[2024-02-02] MEDS: pregabalin 75 mg Capsule PO (17:17)
[2024-02-02] MEDS: docusate sodium 100 mg Capsule PO (17:17)
[2024-02-02] MEDS: insulin lispro 100 unit/1 mL SUBCUT ×2 (17:17→21:21)
[2024-02-02 18:05] LABS: Add Urine Microscopic? NO; Charge for UA Resulting for Rev
[2024-02-02 18:09] LABS: Urine Appearance Clear (CLEAR); Urine Color Yellow (Yellow); pH Urine 6.5 (5-7)
[2024-02-02 18:10] LABS: Bilirubin Urine Neg (Negative); Blood Urine Neg (Negative); Glucose Urine UA Norm (Normal); Ketones Urine Negative (Negative); Leukocyte Esterase Urine Negative (Negative); Nitrate Urine Negative (Negative); Protein Urine Neg (Negative); Specific Gravity, Urine 1.005 (1.005-1.030); Urobilinogen Urine Norm (Negative)
--- NOTE | 2024-02-02 19:23 | XRR_ITS ---
PROCEDURE INFORMATION: Exam: XR Left Foot Exam date and time: 02/02/2024 7:48 PM Age: 58 years old Clinical indication: Other: Osteomylitis; Additional info: Swelling and ulcer left 4th digit, dm, has osteomyelitis right foot concurrently TECHNIQUE: Imaging protocol: Radiologic exam of the left foot. Views: 3 or more views. COMPARISON: No relevant prior studies available. FINDINGS: Bones/joints: Fourth middle phalanx bony destruction with some possible involvement of the distal phalanx proximal lateral aspect as well, concerning for osteomyelitis, MRI could further characterize this. Soft tissues: Normal. XR/XR foot LT min 3V* [id number] IMPRESSION: Fourth middle phalanx bony destruction with some possible involvement of the distal phalanx proximal lateral aspect as well, concerning for osteomyelitis, MRI could further characterize this.
[2024-02-02] MEDS: pregabalin 150 mg Capsule PO (20:13)
[2024-02-02] MEDS: morphine ER (12 HR) 15 mg Tablet PO (20:13)
[2024-02-02] MEDS: sodium chlor 0.9% + KCl 20 mEq 20 MEQ/1,000 ML BAG 100 MEQ IV (20:21)
[2024-02-02 20:41] LABS: Glucose Point of Care 204 mg/dL (70-110)
[2024-02-02] MEDS: insulin glargine 100 units/1 mL 30 UNIT SUBCUT (21:22)
[2024-02-03] VITALS (10 sets, daily range): BP systolic 100–148; BP diastolic 52–80; PULSE 81–97; RESP 16–22; TEMP 36.4–36.7; O2SAT 93–95
[2024-02-03] MEDS: piperacillin-tazobactam 3.375 GM in sodium chloride 0.9% (plus) 50 ML IV ×3 (00:36→16:27)
[2024-02-03] MEDS: morphine 4 mg/mL SDV 1 mL IVP (04:34)
[2024-02-03 05:44] LABS: Basophils % 0.4 %; Eosinophils # 0.2 10^3/uL (0.0-0.8); Eosinophils % 2.6 %; Hematocrit 39.9 % (37-53); Lymphocytes # 3.5 10^3/uL (0.8-4.8); Lymphocytes % 43.7 %; Mean Corpuscular HGB Conc 34.1 g/dL (30-55); Mean Corpuscular Hemoglobin 29.2 pg (27-33); Mean Corpuscular Volume 85.6 fl (82-101); Monocytes # 0.7 10^3/uL (0.2-0.9); Monocytes % 8.3 %; Neutrophils # 3.55 10^3/uL (1.8-7.7); Neutrophils % 44.7 %; Nucleated Red Blood Cells % 0 %; Platelet Count 310 10^3/cmm (157-399); Red Blood Count 4.66 10^6/uL (3.85-5.65); Red Cell Distribution Width 12.8 % (12.1-15.1); White Blood Count 7.94 10^3/uL (3.29-11.43)
--- NOTE | 2024-02-03 06:00 | ECG_ITS ---
[facility] Test Date: 2024-02-03 Pat Name: Celestino Romero Department: Room: 279 Gender: Male Intensive Care Anaesthetist: : 1965 Requested By: Marychuy Neely Order Number: [id number] Pola MD: Rajendra Silveira M.D. Measurements Intervals Ava Rate: 78 P: 60 AR: 154 QRS: 58 QRSD: 93 T: 64 QT: 383 QTc: 437 Interpretive Statements SINUS RHYTHM Compared to ECG 02/02/2024 13:53:53 Sinus tachycardia no longer present Electronically Signed On 02-03-2024 10:58:23 WET CHAR CONVEYOR TENDER by Rajendra Silveira M.D. [id number]
[2024-02-03 06:12] LABS: Estmated Average Glucose 260; Hemoglobin A1C 10.7 % (4.0-6.0)
[2024-02-03 06:13] LABS: Blood Urea Nitrogen 7 mg/dL (6-20); Calcium 8.1 mg/dL (8.5-10.5); Carbon Dioxide 26 mmol/L (22-29); Chloride 101 mmol/L (98-107); Creatinine Clr Calc Pharmacy 98.8152; Glomerular Filtration Rate 115.8 mL/min (90-130); Glucose 273 mg/dL (65-115); Magnesium 1.8 mg/dL (1.7-2.3); Osmolality Calculated 290 mOsm/kg (285-295); Phosphorus 3.1 mg/dL (2.5-4.5); Sodium 136 mmol/L (136-145)
[2024-02-03 06:14] LABS: Lactic Sepsis W/Reflex 1.8 mmol/L (0.5-2.2)
[2024-02-03] MEDS: sodium chlor 0.9% + KCl 20 mEq 20 MEQ/1,000 ML BAG 100 MEQ IV (06:29)
[2024-02-03 06:39] LABS: Glucose Point of Care 333 mg/dL (70-110)
--- NOTE | 2024-02-03 07:42 | P.PN_ITS ---
Subjective 2 Subjective: Patient seen bedside this morning, planning for right fifth toe amputation tomorrow at 7 AM, n.p.o. at midnight. Patient showed me pictures of his feet when he initially got the wounds January 07 after wearing a tight fitting pair of work boots, had cellulitis and a full-thickness wound on the right fifth toe he also had cellulitis and a full-thickness wound to the left fourth toe. He continues to have swelling of the left fourth toe there is no wound at the left fourth toe. Vitals/I&O/Wt Last Vital Signs Temp 97.6 F 02/03/24 04:00 Pulse 81 02/03/24 06:00 Resp 22 H 02/03/24 04:34 BP 109/65 02/03/24 04:00 Pulse Ox 93 02/03/24 04:00 O2 Del Method Room Air 02/03/24 04:00 02/02/24 02/03/24 02/03/24 22:59 06:59 14:59 Intake Total 1300 / 1300 1050 / 2350 Output Total 650 / 650 850 / 1500 Balance 650 / 650 200 / 850 Weight last 48 hrs Weight 154 lb 3 oz Weight 142 lb Weight 142 lb Physical Exam 2 Narrative: GENERAL: Patient is alert and oriented ?3 and in no acute distress. The following is a focused bilateral lower extremity exam. VASCULAR: Dorsalis pedis palpable bilaterally. Posterior tibial arteries palpable. Capillary refill time less than 5 seconds to the distal hallux bilaterally. Calf is supple and nontender proximally and distally. Decreased pedal hair growth bilaterally. Rubor to the bilateral forefoot. Edema at the left fourth toe. NEUROLOGICAL: Protective sensation intact 0/10 sites, tested with [place] monofilament to bilateral feet. DERMATOLOGICAL: Full-thickness wound right fifth toe at the lateral aspect of the proximal interphalangeal joint probes directly to bone with localized periwound erythema. Wound limited to breakdown of skin at the dorsal aspect of the left fourth and fifth toe without surrounding erythema, warmth or drainage. Toenails 1, 2, 3, 4, 5 left and right foot are elongated, thickened and discolored with subungual debris. Lower extremity integument is atrophic with decreased texture and turgor, has thin shiny appearance. Edema to the left fourth toe without erythema, no wound to the left fourth toe. MUSCULOSKELETAL: No crepitus with palpation of soft tissue to the right fifth toe. Hammertoe of the fifth digit bilaterally. Pes planus foot type bilaterally. Muscle strength +5 in all 3 planes bilateral foot and ankle. Data 02/03/24 05:30 02/03/24 05:30 Micro: Microbiology 02/02/24 14:01 Blood Culture - Preliminary Blood SPECIMEN COLLECTED 02/02/24 13:32 Blood Culture - Preliminary Blood SPECIMEN COLLECTED A&P Assessment and plan (1) Acute osteomyelitis of toe of right foot: (2) Diabetic peripheral neuropathy associated with type 2 diabetes mellitus: Plan 58-year-old female presents with acute osteomyelitis right fifth toe X-ray right foot 3 view shows bony destruction of the proximal, intermediate and distal phalanx right fifth toe. No involvement of the fifth metatarsal on x- ray, no soft tissue edema or foreign body. On admission CRP 11.9 mg/L, ESR 35 mm/h, no leukocytosis. Right fifth toe wound probes to bone X-ray left foot 3 view shows bony destruction of the proximal and distal phalanx consistent with osteomyelitis, correlated to patient's images on his phone from January 07 when he first developed a wound he had a wound was full-thickness with cellulitis. He is clinically stable at this time to the left fourth toe without wound or drainage, his only symptom is swelling of the left fourth toe. Patient continuing empiric IV antibiotics Noninvasive vascular studies to include FRIDA/TBI and PVR bilateral lower extremity, results pending Nonweightbearing right lower extremity may heel touch for transfers. Betadine wet-to-dry dressing Right fifth toe wound culture taken in emergency department, planning on bone culture when surgery is performed. Reviewed x-ray findings consistent with osteomyelitis of the left fourth toe with the patient at length. He would like to preserve his left fourth toe and avoid amputation if at all possible. Recommended incision and debridement down to bone and will be following up outpatient for wound care and podiatry clinic. Scheduled for partial right fifth ray amputation tomorrow morning February 04, 2024 7:00 AM, n.p.o. at midnight tonight. Attestations 2 Medical Necessity Statement*: Osteomyelitis bilateral foot Coding Level of Care Code Acute Code for [facility] Fwd Diagnoses Acute osteomyelitis of toe of right foot M86.171 Diabetic peripheral neuropathy associated with type 2 diabetes mellitus E11.42
[2024-02-03] MEDS: vancomycin 1,250 MG/250 ML PIGGYBACK 250 MG IV (08:31)
[2024-02-03] MEDS: insulin lispro 100 unit/1 mL SUBCUT ×3 (08:37→21:24)
[2024-02-03] MEDS: insulin glargine 100 units/1 mL 30 UNIT SUBCUT (08:37)
[2024-02-03] MEDS: morphine ER (12 HR) 15 mg Tablet PO ×2 (08:38→21:24)
[2024-02-03] MEDS: pregabalin 75 mg Capsule PO (08:38)
[2024-02-03] MEDS: pantoprazole DR 40 mg Tablet PO (08:38)
[2024-02-03] MEDS: enoxaparin 40 mg/0.4 mL Syringe SUBCUT (08:39)
[2024-02-03] MEDS: neomycin-poly-bacitracin oint 28 gm 1 APPLIC TOPICAL ×2 (08:39→17:57)
--- NOTE | 2024-02-03 09:50 | P.PN_ITS ---
Subjective 2 Subjective: Patient is endorsing smoking 1 pack/day Occasional use of alcohol Patient is not sure about his dose of insulin His A1c is above 10 Patient was asking if he could drive home after his surgery Vitals/I&O/Wt Last Vital Signs Temp 97.9 F 02/03/24 07:46 Pulse 95 02/03/24 07:46 Resp 17 02/03/24 07:46 BP 124/65 02/03/24 07:46 Pulse Ox 94 02/03/24 07:46 O2 Del Method Room Air 02/03/24 07:46 02/02/24 02/03/24 02/03/24 22:59 06:59 14:59 Intake Total 1300 / 1300 1050 / 2350 240 / 240 Output Total 650 / 650 850 / 1500 400 / 400 Balance 650 / 650 200 / 850 -160 / -160 Weight last 48 hrs Weight 69.938 kg Weight 64.41 kg Weight 64.41 kg Physical Exam 2 Narrative: Laying supine No active discomfort Hemodynamically stable Nonfocal neuroexam Currently he is on room air S1, S2 No acute distress Appears stated age Euvolemic Data 02/03/24 05:30 02/03/24 05:30 Micro: Microbiology 02/02/24 14:01 Blood Culture - Preliminary Blood SPECIMEN COLLECTED 02/02/24 13:32 Blood Culture - Preliminary Blood SPECIMEN COLLECTED A&P Assessment and plan (1) Insulin dependent diabetes mellitus: (2) Diabetic foot ulcer: Qualifiers: Diabetic foot ulcer location: toe Diabetes mellitus type: type 2 L aterality: right Non-pressure ulcer stage: with necrosis of bone Qualified Code(s): E11.621 - Type 2 diabetes mellitus with foot ulcer; L97.514 - Non- pressure chronic ulcer of other part of right foot with necrosis of bone (3) Osteomyelitis: Qualifiers: Osteomyelitis type: other acute Osteomyelitis location: foot L aterality: right Qualified Code(s): M86.171 - Other acute osteomyelitis, right ankle and foot (4) Acute osteomyelitis of toe of right foot: (5) Diabetic neuropathy: (6) Peripheral neuropathy: (7) Diabetic peripheral neuropathy associated with type 2 diabetes mellitus: (8) Tobacco use disorder, moderate, dependence: Plan Plan for surgical intervention for diabetic foot ulcer/osteomyelitis Considering extensive bone destruction he may need IV long-term antibiotics Will touch base with Dr. Cano Patient will stay n.p.o. after midnight Poorly controlled type 2 diabetes is not able to tell me his dose of insulin Review of chart shows that he was on 40 units of Lantus Currently not in distress Continue broad-spectrum antibiotics Patient is an active smoker DVT prophylaxis on hold for intervention tomorrow Attestations 2 Medical Necessity Statement*: Intervention tomorrow Diagnoses Insulin dependent diabetes mellitus Diabetic ulcer of toe of right foot associated with type 2 diabetes mellitus, with necrosis of bone E11.621; L97.514 Diabetic foot ulcer location: toe Diabetes mellitus type: type 2 Laterality: right Non-pressure ulcer stage: with necrosis of bone Other acute osteomyelitis of right foot M86.171 Osteomyelitis type: other acute Osteomyelitis location: foot Laterality: right Acute osteomyelitis of toe of right foot M86.171 Diabetic neuropathy E11.40 Peripheral neuropathy G62.9 Diabetic peripheral neuropathy associated with type 2 diabetes mellitus E11.42 Tobacco use disorder, moderate, dependence F17.200
[2024-02-03 10:49] LABS: Glucose Point of Care 134 mg/dL (70-110)
[2024-02-03] MEDS: nicotine 2 mg Gum 4 MG BUCCAL ×2 (11:08→16:35)
[2024-02-03 16:38] LABS: Glucose Point of Care 240 mg/dL (70-110)
[2024-02-03] MEDS: docusate sodium 100 mg Capsule PO (17:56)
[2024-02-03] MEDS: atorvastatin 40 mg Tablet PO (17:56)
--- NOTE | 2024-02-03 19:07 | USCV_ITS ---
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 Features of possible arterial noncompliance with no significant arterial obstruction Dr Faith Falcon MD FACC (Electronically Signed) Final Date: 04 February 2024 09:23 S
[2024-02-03 20:56] LABS: Glucose Point of Care 227 mg/dL (70-110)
[2024-02-03] MEDS: pregabalin 150 mg Capsule PO (21:23)
[2024-02-03] MEDS: insulin glargine 100 units/1 mL 10 UNIT SUBCUT (21:24)
[2024-02-04] VITALS (21 sets, daily range): BP systolic 81–165; BP diastolic 52–87; PULSE 69–100; RESP 14–20; TEMP 36.3–36.9; O2SAT 94–98
[2024-02-04] MEDS: piperacillin-tazobactam 3.375 GM in sodium chloride 0.9% (plus) 50 ML IV ×2 (01:32→17:54)
[2024-02-04] MEDS: morphine 4 mg/mL SDV 1 mL IVP ×2 (01:34→16:22)
[2024-02-04] MEDS: vancomycin 1,250 MG/250 ML PIGGYBACK 250 MG IV ×2 (01:52→21:42)
[2024-02-04] MEDS: sodium chloride 0.9% 1,000 ML 75 ML IV (03:16)
--- NOTE | 2024-02-04 06:52 | ANES.PREANE2 ---
Pre-Anesthetic Assessment Height/Weight: Height 1.57 m Weight 71.384 kg Temp Pulse Resp BP Pulse Ox O2 Del Method 97.8 F 77 17 105/74 94 Room Air 02/04/24 04:00 02/04/24 05:43 02/04/24 04:00 02/04/24 04:00 02/04/24 04:00 02/04/24 04:00 Preop Diagnosis: Osteomyelitis right fifth toe Operation Date: 02/04/24 07:00 Proposed Procedures p Partial fifth ray amputation right foot(Right) - Rc Cano DPM Last intake: Intake Last Liquid Date 02/03/24 Last Liquid Time 23:30 Last Solid Date 02/03/24 Last Solid Time 18:00 Social Tobacco Exam alert, oriented x 3, clear to auscultation bilaterally and regular rate & rhythm Airway Submandibular: within normal limits Cervical ROM: within normal limits Mallampati: Class I Pulmonary Chronic Obstructive Pulmonary Disease CV/HEM Hypertension Metabolic Diabetes Mellitus Anesthetic Plan ASA status: 3 Anesthesia: MAC Risk of > 500 ml blood loss (7ml/kg in children): No Medications/Allergies Home Medications Medication Instructions Recorded Confirmed Last Taken Type blood sugar diagnostic (Blood #50 ea 09/24/22 02/02/24 Unknown Rx Glucose Test strips) blood-glucose meter (OneTouch #1 ea 11/12/22 02/02/24 Unknown Rx Ultra2 Meter) diclofenac sodium 75 mg 75 mg PO Q12H PRN pain #60 tabs 04/28/23 02/02/24 Unknown Rx tablet,delayed release ipratropium bromide 0.02 % 2.5 ml inhalation Q6H PRN 07/09/23 02/02/24 Unknown Rx solution for inhalation shortness of breath or wheezing #75 mL albuterol sulfate 2.5 mg/3 mL 2.5 mg (3 mL) inhalation QID PRN 07/16/23 02/02/24 Unknown Rx (0.083 %) solution for nebulization shortness of breath or wheezing #180 mL nebulizer, tubing, supplies #1 ea 07/16/23 02/02/24 Unknown Rx blood-glucose meter,continuous #1 ea 09/14/23 02/02/24 Unknown Rx (Dexcom G6 Rn Dialysis) blood-glucose sensor (Dexcom G6 #3 ea 09/14/23 02/02/24 Unknown Rx Sensor device) blood-glucose transmitter (Dexcom #1 ea 09/14/23 02/02/24 Unknown Rx G6 Transmitter device) Diabetic shoes #1 ea 10/13/23 02/02/24 Unknown Rx sildenafil 25 mg tablet See Rx Instructions .Route 10/13/23 02/02/24 Unknown Rx .COMPLEX #30 tabs albuterol sulfate 90 mcg/actuation 1 inh inhalation QID PRN shortness 12/07/23 02/02/24 Unknown Rx aerosol inhaler of breath or wheezing #8.5 grams budesonide 160 mcg-glycopyr 9 2 inh inhalation BID #10.7 grams 12/07/23 02/02/24 02/02/24 Rx mcg-formot 4.8 mcg/actuation HFA inhaler (InformedDNA) lancets 33 gauge (OneTouch Delica #100 ea 12/07/23 02/02/24 Unknown Rx Plus Lancet) pregabalin 75 mg capsule 75 mg PO BID #60 caps 01/05/24 02/02/24 02/01/24 Rx morphine 15 mg tablet,extended 15 mg PO Q12H 30 days #14 tabs 01/18/24 02/02/24 02/01/24 Rx release atorvastatin 40 mg tablet (Lipitor) 40 mg PO QPM 02/02/24 02/02/24 02/01/24 History glipizide 10 mg tablet 10 mg PO DAILY 02/02/24 02/02/24 02/01/24 History insulin glargine 100 unit/mL (3 40 unit (0.4 mL) SUBCUT BID #15 mL 02/02/24 02/02/24 Unknown Rx mL) subcutaneous pen (Basaglar KwikPen U-100 Insulin) insulin aspart U-100 100 unit/mL 10 unit (0.1 mL) SUBCUT TID #15 mL 02/03/24 Unknown Rx (3 mL) subcutaneous pen (Novolog FlexPen U-100 Insulin aspart) Allergies Allergy/AdvReac Type Severity Reaction Status Date / Time No Known Allergies Allergy Verified 02/02/24 09:25 Current Medications Generic Name Dose Route Start Last Admin Trade Name Freq PRN Reason Stop Dose Admin Atorvastatin Calcium 40 mg 02/02/24 18:00 02/03/24 17:56 Atorvastatin 40 Mg Tablet PO 40 mg QPM JAYDE Administration Docusate Sodium 100 mg 02/02/24 18:00 02/03/24 17:56 Docusate Sodium 100 Mg Capsule PO 100 mg BID JAYDE Administration Enoxaparin Sodium 40 mg 02/03/24 09:00 02/03/24 08:39 Enoxaparin 40 Mg/0.4 Ml Syringe SUBCUT 40 mg DAILY JAYDE Administration Piperacillin Sod/Tazobactam 50 mls @ 12.5 mls/hr 02/02/24 16:45 02/04/24 05:17 Sod 3.375 gm/ Sodium Chloride IV Infused Q8H JAYDE Infusion Protocol Vancomycin/PEG/NADA/Lysine/Water 1,250 mg in 250 mls @ 250 mls/hr 02/03/24 08:00 02/04/24 03:55 Vancocin IV Infused Q18H JAYDE Infusion Sodium Chloride 1,000 mls @ 75 mls/hr 02/04/24 03:00 02/04/24 03:16 Sodium Chloride 0.9% IV 75 mls/hr .[id number] JAYDE Administration Insulin Glargine 10 unit 02/03/24 20:00 02/03/24 21:24 Insulin Glargine 100 Units/1 Ml SUBCUT 10 unit BID@08,20 JAYDE Administration Insulin Human Lispro 0 unit 02/02/24 21:00 02/03/24 21:24 Insulin Lispro 100 Unit/1 Ml SUBCUT 6 unit BEDTIME JAYDE Administration Protocol Insulin Human Lispro 0 unit 02/02/24 18:00 02/03/24 17:56 Insulin Lispro 100 Unit/1 Ml SUBCUT 8 unit TIDWM [facility] Administration Protocol Morphine Sulfate 15 mg 02/02/24 21:00 02/03/24 21:24 Morphine Er (12 Hr) 15 Mg Tablet PO 15 mg BID@ [facility] Administration Morphine Sulfate 4 mg 02/02/24 16:40 02/04/24 01:34 Morphine 4 Mg/Ml Sdv 1 Ml IVP 4 mg Q4H PRN Administration breakthrouhg pain Neomycin/Polymyxin/Bacitracin 1 applic 02/03/24 09:00 02/03/24 17:57 Uutpdxed-Nqzq-Qqlvmjoupo Oint 28 Gm TOPICAL 1 applic BID JAYDE Administration Nicotine Polacrilex 4 mg 02/03/24 13:30 02/03/24 16:35 Nicotine 2 Mg Gum BUCCAL 4 mg PRN JAYDE Administration Non-Formulary 1 each 02/02/24 18:15 02/03/24 17:57 Medication Breztri INHALATION Not Given Inhaler BID JAYDE Non-Formulary Medication 2 inh 02/03/24 09:00 02/03/24 17:57 Cbbozjsxsj-Ovhjhcnw-Ailfeypkxl [Breztri Aerosphere] INHALATION Not Given BID JAYDE Pantoprazole Sodium 40 mg 02/03/24 09:00 02/03/24 08:[address] 40 Mg Tablet PO 40 mg DAILY JAYDE Administration Pregabalin 75 mg 02/03/24 09:00 02/03/24 08:38 Pregabalin 75 Mg Capsule PO 75 mg DAILY JAYED Administration Pregabalin 150 mg 02/02/24 21:00 02/03/24 21:23 Pregabalin 150 Mg Capsule PO 150 mg BEDTIME JAYDE Administration [facility] Anesthesia Medical History (Updated 02/02/24 @ 19:03 by Rc Cano DPM) History of echocardiogram 11/2022 EF 55-60%, no pulmonary hypertension Degenerative disc disease, cervical Erectile dysfunction Coronary artery disease Hypercholesteremia Diabetic neuropathy COPD (chronic obstructive pulmonary disease) Nicotine dependence Diabetes Surgical History (Updated 02/02/24 @ 18:34 by Marychuy Neely MD) H/O hand surgery right Family History Father Cancer Father had GI cancer, was diagnosed at age 60 Social History Smoking and tobacco/nicotine status: current every day tobacco/nicotine user cigarettes [ Other cigarette details: 1/2PPD. liftime average 2PPD, 86PY] Alcohol intake: never Substance/Drug Use: never Lives independently: Yes Housing: House Current occupational status: disabled Special shyam needs: No Agree to transfusion: Yes Data Anesthesia 02/03/24 05:30 02/03/24 05:30 Short CBC 02/02/24 02/03/24 Range/Units 13:32 05:30 WBC 8.28 7.94 (3.29-11.43) 10^3/uL Hgb 15.00 13.60 (11.27-16.99) g/dL Hct 44.0 39.9 (37-53) % MCV 86.6 85.6 (82-101) fl Plt Count 367 310 (157-399) 10^3/cmm Neut % (Auto) 59.5 44.7 % Neut # (Auto) 4.93 3.55 (1.8-7.7) 10^3/uL BMP 02/02/24 02/03/24 13:32 05:30 Sodium 132 L 136 Potassium 3.9 4.0 Chloride 92 L 101 Carbon Dioxide 27 26 BUN 8 7 Creatinine 0.8 0.7 Glucose 464 H 273 H Calcium 8.9 8.1 L Cardiac Enzymes 02/02/24 Range/Units 13:32 Creatine Kinase 50 (39-308) U/L Liver Function 02/02/24 Range/Units 13:32 Total Bilirubin 0.2 (0.15-1.2) mg/dL AST 9 (0-40) U/L ALT 10 (0-41) U/L Alkaline Phosphatase 126 (40-130) U/L Albumin 3.9 (3.5-5.2) g/dL Urine 02/02/24 Range/Units 17:20 Urine Color Yellow (Yellow) Urine Appearance Clear (CLEAR) Urine pH 6.5 (5-7) Ur Specific [place] 1.005 (1.005-1.030) Urine Protein Neg (Negative) Urine Glucose (UA) Norm (Normal) Urine Ketones Negative (Negative) Urine Nitrate Negative (Negative) Urine Bilirubin Neg (Negative) Ur Leukocyte Esterase Negative (Negative) Coags 02/02/24 13:32 ESR 35 H C-Reactive Protein 11.9 H ABG 02/02/24 14:00 Specimen Type Arterial Sample Site Brachial, left ABG pH 7.39 ABG pCO2 41.6 ABG pO2 75.8 L ABG HCO3 25.1 ABG O2 Saturation 97.2 ABG Base Excess 0.0 A-a O2 Gradient 2.7 L O2 Delivery Device Room air Microbiology 02/02/24 14:01 Blood Culture - Preliminary Blood Staphylococcus sp coag neg 02/02/24 13:32 Blood Culture - Preliminary Blood NEGATIVE TO DATE Cardiac Studies: Echocardiogram 12/08/22
[2024-02-04 06:58] LABS: Blood Urea Nitrogen 8 mg/dL (6-20); Calcium 8.4 mg/dL (8.5-10.5); Carbon Dioxide 28 mmol/L (22-29); Chloride 102 mmol/L (98-107); Creatinine Clr Calc Pharmacy 99.7563; Glomerular Filtration Rate 115.8 mL/min (90-130); Glucose 103 mg/dL (65-115); Osmolality Calculated 287 mOsm/kg (285-295); Sodium 139 mmol/L (136-145)
[2024-02-04] MEDS: sodium chloride 0.9% 1,000 ML 30 ML IV (07:00)
[2024-02-04 07:02] LABS: Basophils % 0.4 %; Eosinophils # 0.3 10^3/uL (0.0-0.8); Eosinophils % 3.1 %; Hematocrit 38.2 % (37-53); Lymphocytes # 4.2 10^3/uL (0.8-4.8); Lymphocytes % 45.7 %; Mean Corpuscular HGB Conc 34.3 g/dL (30-55); Mean Corpuscular Hemoglobin 29.4 pg (27-33); Mean Corpuscular Volume 85.7 fl (82-101); Mean Platelet Volume 10.4 fL (7.4-10.4); Monocytes # 0.8 10^3/uL (0.2-0.9); Monocytes % 8.6 %; Neutrophils # 3.83 10^3/uL (1.8-7.7); Neutrophils % 42.1 %; Nucleated Red Blood Cells % 0 %; Platelet Count 328 10^3/cmm (157-399); Red Blood Count 4.46 10^6/uL (3.85-5.65); Red Cell Distribution Width 12.7 % (12.1-15.1)
[2024-02-04] MEDS: BUPivacaine 0.5% INJ 30 mL XX (07:10)
--- NOTE | 2024-02-04 07:52 | P.BOP_ITS ---
Date of Procedure: 02/04/24 Surgeon: Rc Cano DPM Medical Staff Services Manager(s): DEMETRIA Procedure(s) performed: Right fifth toe amputation. Left fourth toe incision to bone cortex. Findings of the procedure(s): Osteomyelitis right fifth toe and left fourth toe. Estimated blood loss: 5 mL Specimen(s) removed: Right fifth toe sent to pathology for permanent. Bone from right fifth toe sent to microbiology. Bone from left fourth toe sent to microbiology. Post-operative diagnosis: Osteomyelitis right fifth toe and left fourth toe. No complications with anesthesia or the procedure. Patient was transferred back to the floor with vital signs stable and vascular status intact. He will return to the floor and continue empiric IV antibiotics.
--- NOTE | 2024-02-04 07:53 | PM.OP ---
Operative Report Date of procedure: February 04, 2024 Pre-op diagnosis: Osteomyelitis right fifth toe. Osteomyelitis left fourth toe. Post-op diagnosis: Same Post-op findings: Devitalized bone right fifth toe. Devitalized bone left fourth toe. Procedure done: Right fifth toe amputation at metatarsophalangeal joint. CPT code 92302 Incision of bone cortex left fourth toe. CPT code 69174. Implants: 4-0 Vicryl, 4-0 nylon Specimens removed/disposition: Bone from right fifth toe sent to microbiology for Gram stain, culture and sensitivity. Bone from left fourth toe sent to microbiology for Gram stain, culture and sensitivity. Pathology: Right fifth toe sent to pathology for permanent. Surgeon: Rc Cano DPM Bag Loader Machine Operator: DEMETRIA Estimated blood loss: 5 See intraoperative documentation IV fluids: None Urine output: none Complications: None Findings: Devitalized bone right fifth toe and left fourth toe Brief History: Patient wore a ill fitting pair of boots working on a project around his house, states he was digging a hole, boots rubbed holes and wounds that got infected at his right and left foot this was early December 2023. He had photographs of cellulitis and full-thickness wound at the right fifth toe and left fourth toe. X-ray left and right foot shows osteomyelitis of the right fifth toe and left fourth toe. Recommended surgical debridement of left fourth toe, patient wishing to make salvage efforts in order to avoid amputation if at all possible, patient is agreeable for amputation of the right fifth toe due to the clinical worsening of redness and wound that is nonhealing. I reviewed at length with the patient, the risks, potential complications, benefits, alternatives, expectations, and typical outcomes associated with the surgery. The risks and potential complications were explained in detail, including but not limited to infection, wound dehiscence or soft tissue complications, bleeding and hematoma, chronic edema, neuritis or nerve damage producing numbness or chronic pain, CRPS, failure to relieve pain or worsening pain, thick / painful / unsightly scar, limited motion / stiffness, malposition, delayed union, malunion, or nonunion, fracture, reaction to implants, anesthetic complications, venous thromboembolism, and deformity recurrence. I discussed the notion of no regrets with the patient as it pertains to complications and outcomes. The patient seemed to understand the nature of the proposed care and required convalescence. They asked appropriate questions, answered to their satisfaction. They are aware no guarantees can be made as to a satisfactory outcome and they understand there may be other possible unforeseen complications or outcomes not listed here that will be treated accordingly if they arise. There were no written or implied guarantees given to the patient. They gave informed consent to proceed. Procedure: Under mild sedation the patient was brought to the operating room and remained on the gurney in supine position. A timeout was performed. Anesthesia was then administered by the anesthesia service. Local anesthesia was injected by myself consisting of 10 cc of one-to-one mixture 1% lidocaine and 0.5% Marcaine plain and a left fourth ray block fashion. 20 cc of one-to-one mixture 1% lidocaine and 0.5 sent Marcaine plain and a right reverse Tobar block. Well-padded pneumatic tourniquet was applied to the left and right ankle. The left and right lower extremities were scrubbed, prepped and draped utilizing normal aseptic technique. Both feet were elevated and tourniquet inflated to 250 mmHg. No Esmarch was utilized. Attention was directed to the right fifth toe where a dorsal lateral wound was at the level of the proximal interphalangeal joint with exposed bone and surrounding cellulitis localized at the right fifth toe. A #15 blade was utilized to perform a full-thickness down to bone and a tennis racquet fashion encompassing the right fifth metatarsal phalangeal joint and the right fifth toe was sharply disarticulated at the metatarsal phalangeal joint passed from operative field. Bone from the proximal phalanx was sent to microbiology for Gram stain, culture and sensitivity, remaining right fifth toe was sent to pathology for permanent. The incision was irrigated with saline solution and the head of the fifth metatarsal and surrounding soft tissues were inspected and noted to have no devitalized tissue or clinical signs of infection. After further irrigation the right fifth toe amputation site was closed in a layered fashion. Subcutaneous tissue closed with 3-0 Vicryl, skin with 4-0 nylon. The incision was dressed with Adaptic, sterile 4 x 4's, Kerlix and Jack wrap followed by application of a postop shoe. Tourniquet was deflated and a prompt hyperemic response was noted to the distal digits of the right foot. Attention was then directed to the left fourth toe which was noted to have edema, at the level of the intermediate phalanx a transverse semielliptical incision was performed with skin bridge excised and passed to operative field, incision was performed down to bone cortex of the intermediate phalanx and debridement was performed sharply with pickups and a 15 blade of all devitalized bone. The incision was irrigated with copious amounts of sterile saline solution. No further utilized bone was appreciated. The incision was then closed with 4-0 nylon and dressed with Adaptic, sterile 4 x 4, Kerlix and Jack wrap followed by application of a postop shoe. Tourniquet was deflated and a prompt hyperemic response was noted to all 5 digits of the left foot. Patient tolerated the procedure and anesthesia well and was transferred to the PACU with vital signs stable and vascular status intact. Following a period of postoperative monitoring he will be transferred back to the floor to continue IV antibiotics. No further surgical intervention anticipated from podiatry standpoint during this hospitalization at [facility]. Will discuss discharge planning with hospitalist. Of note his blood culture is significant for Staphylococcus species, this may necessitate PICC line and infectious disease consultation.
--- NOTE | 2024-02-04 08:02 | SUR.PHASEI ---
07:45 RECEIVED PT FROM OR STAFF. A+O X 3. AIRWAY PATENT.GOOD VENTILATING. NSR ON MONITOR. ROM OF TOES OF LEFT AND RIGHT FOOT.
[2024-02-04] MEDS: morphine ER (12 HR) 15 mg Tablet PO ×2 (09:09→20:16)
[2024-02-04] MEDS: enoxaparin 40 mg/0.4 mL Syringe SUBCUT (09:09)
[2024-02-04] MEDS: docusate sodium 100 mg Capsule PO ×2 (09:10→17:54)
[2024-02-04] MEDS: pantoprazole DR 40 mg Tablet PO (09:10)
[2024-02-04] MEDS: neomycin-poly-bacitracin oint 28 gm 1 APPLIC TOPICAL (09:11)
[2024-02-04] MEDS: pregabalin 75 mg Capsule PO (09:15)
--- NOTE | 2024-02-04 09:17 | XR_ITS ---
WS: [id number] Right hand, 3 views, 02/04/2024 Clinical Data: WOUND TO R FIRST DIGIT Comparison: Right wrist, 07/05/2010 Findings: No fractures or dislocations are seen. The soft tissues are unremarkable. The joint space s are normal No radiopaque foreign bodies are seen. Impression: Negative right hand.
--- NOTE | 2024-02-04 09:21 | XR_ITS ---
WS: [id number] Left foot, 3 views, 02/04/2024 Clinical Data: Status post left fourth toe debridement down to bone Comparison: Left foot, 02/02/2024 Findings: Surgery on the left fourth toe shows that most of the middle phalanx is now absent. The proximal and distal phalanges of the left fourth foot remain. The remainder of the foot shows no change. Impression: Postsurgical changes involving the middle phalanx of the left fourth toe.
--- NOTE | 2024-02-04 09:21 | XR_ITS ---
WS: [id number] Right foot, 3 views, 02/04/2024 Clinical Data: Status post right fifth toe amputation Comparison: Right foot, 02/02/2024 Findings: The right fifth toe has been amputated. There is soft tissue beyond the right fifth metatarsal. The r emainder of the foot shows no change. Impression: Amputation of right fifth toe.
--- NOTE | 2024-02-04 10:45 | P.PN_ITS ---
Subjective 2 Subjective: Postop day 0 right fifth toe amputation at metatarsophalangeal joint Postoperatively patient is doing well He is awake and alert Able to tolerate diet Blood culture most likely is a contamination because this is coagulase-negative and saprophyticus is mostly the cause of honeymoon cystitis I will request x-ray of his hand noticed purulent wound of right index finger For now our plan is to discharge him home on oral antibiotics Vitals/I&O/Wt Last Vital Signs Temp 98.0 F 02/04/24 08:10 Pulse 85 02/04/24 09:10 Resp 18 02/04/24 09:10 BP 122/79 02/04/24 09:10 Pulse Ox 95 02/04/24 09:10 O2 Del Method Room Air 02/04/24 09:10 02/03/24 02/04/24 02/04/24 22:59 06:59 14:59 Intake Total 340 / 3070 300 / 3370 500 / 500 Output Total 1250 / 2400 725 / 3125 2 / 2 Balance -910 / 670 -425 / 245 498 / 498 Weight last 48 hrs Weight 71.384 kg Weight 69.938 kg Weight 64.41 kg Weight 64.41 kg Physical Exam 2 Narrative: Awake and alert GCS of Euvolemic Pleasant cough Nonfocal neuroexam currently on room air Right index finger purulent base mild cellulitis which seems to be improving Skin is also showing signs of granulation tissue around the wound No active drainage There is some crusting at the edge of the wound Awake and alert Patient has offloading shoes on feet S1, S2 Nonfocal neuroexam Currently on room air Data 02/04/24 06:11 02/04/24 06:11 Micro: Microbiology 02/02/24 14:01 Blood Culture - Preliminary Blood Staphylococcus sp coag neg 02/02/24 13:32 Blood Culture - Preliminary Blood NEGATIVE TO DATE A&P Assessment and plan (1) Insulin dependent diabetes mellitus: (2) Diabetic foot ulcer: Qualifiers: Diabetic foot ulcer location: toe Diabetes mellitus type: type 2 L aterality: right Non-pressure ulcer stage: with necrosis of bone Qualified Code(s): E11.621 - Type 2 diabetes mellitus with foot ulcer; L97.514 - Non- pressure chronic ulcer of other part of right foot with necrosis of bone (3) Polyuria: (4) Osteomyelitis: Qualifiers: Osteomyelitis type: other acute Osteomyelitis location: foot L aterality: right Qualified Code(s): M86.171 - Other acute osteomyelitis, right ankle and foot (5) Acute osteomyelitis of toe of right foot: (6) Peripheral neuropathy: (7) Diabetic neuropathy: (8) Diabetic peripheral neuropathy associated with type 2 diabetes mellitus: (9) COPD (chronic obstructive pulmonary disease): Qualifiers: COPD type: COPD with acute exacerbation Qualified Code(s): J44.1 - Chronic obstructive pulmonary disease with (acute) exacerbation (10) Tobacco use disorder, moderate, dependence: (11) Open wound of index finger: Plan Acute osteomyelitis diabetic foot ulcer Status post amputation of right fifth toe at metatarsophalangeal joint Postop day 0 No postop complication Afebrile Blood culture I do believe is showing contamination I am optimistic that we will be able to discharge him on oral antibiotics for antipseudomonal and anti-MRSA coverage Noticed index finger open wound with purulent base requesting x-ray Afebrile with no signal leukocytosis Will watch him till tomorrow Offloading shoes provided by Dr. Cano Close follow-up with Dr. Cano outpatient Poorly controlled diabetic I will increase dose of Lantus will add Premeal insulin as well Continue broad-spectrum antibiotics until the day of discharge DisPosition: Likely home on oral antibiotics in next 24 to 48 hours DVT prophylaxis with Lovenox to be continued today Consistent carb diet Attestations 2 Medical Necessity Statement*: Discharge in next 24-40 hours Diagnoses Insulin dependent diabetes mellitus Diabetic ulcer of toe of right foot associated with type 2 diabetes mellitus, with necrosis of bone E11.621; L97.514 Diabetic foot ulcer location: toe Diabetes mellitus type: type 2 Laterality: right Non-pressure ulcer stage: with necrosis of bone Polyuria R35.89 Other acute osteomyelitis of right foot M86.171 Osteomyelitis type: other acute Osteomyelitis location: foot Laterality: right Acute osteomyelitis of toe of right foot M86.171 Peripheral neuropathy G62.9 Diabetic neuropathy E11.40 Diabetic peripheral neuropathy associated with type 2 diabetes mellitus E11.42 Chronic obstructive pulmonary disease with acute exacerbation J44.1 COPD type: COPD with acute exacerbation Tobacco use disorder, moderate, dependence F17.200 Open wound of index finger S61.201A
[2024-02-04 10:55] LABS: Glucose Point of Care 160 mg/dL (70-110)
[2024-02-04] MEDS: nicotine 2 mg Gum 4 MG BUCCAL (12:07)
[2024-02-04] MEDS: insulin lispro 100 unit/1 mL SUBCUT ×5 (12:07→21:05)
[2024-02-04 16:36] LABS: Glucose Point of Care 213 mg/dL (70-110)
[2024-02-04] MEDS: atorvastatin 40 mg Tablet PO (17:54)
--- NOTE | 2024-02-04 18:40 | PC.NURSE ---
SHIFT SUMMARY Patient has done well today. Surgical dressings are C/D/I. Pain well controlled. Good intake and output. Currently resting in bed with no complaints.
[2024-02-04] MEDS: pregabalin 150 mg Capsule PO (20:16)
--- NOTE | 2024-02-04 20:22 | ANE.PACU2 ---
Inpatient post-anesthesia follow up: Airway intact: Yes Vital signs: Temperature 98.4 F Pulse Rate 100 Respiratory Rate 18 Blood Pressure 140/78 Pulse Oximetry 97 Oxygen Delivery Me thod Room Air Oxygen Flow Rate Fraction of Inspir ed Oxygen Hydration adequate: Yes Nausea and vomiting: No Pain level: 2 Mental status: Baseline
[2024-02-04 20:57] LABS: Glucose Point of Care 322 mg/dL (70-110)
[2024-02-04] MEDS: insulin glargine 100 units/1 mL 20 UNIT SUBCUT (21:06)
[2024-02-05] VITALS (7 sets, daily range): BP systolic 122–146; BP diastolic 51–72; PULSE 79–94; RESP 16–20; TEMP 36.7–37; O2SAT 93–97
[2024-02-05] MEDS: piperacillin-tazobactam 3.375 GM in sodium chloride 0.9% (plus) 50 ML IV ×2 (00:19→08:06)
[2024-02-05] MEDS: nicotine 2 mg Gum 4 MG BUCCAL (03:41)
[2024-02-05 06:17] LABS: Basophils % 0.3 %; Eosinophils # 0.4 10^3/uL (0.0-0.8); Eosinophils % 3.8 %; Hematocrit 39.1 % (37-53); Lymphocytes # 3.1 10^3/uL (0.8-4.8); Lymphocytes % 29.7 %; Mean Corpuscular Hemoglobin 29.1 pg (27-33); Mean Corpuscular Volume 85.6 fl (82-101); Monocytes # 1.1 10^3/uL (0.2-0.9); Monocytes % 10.5 %; Neutrophils # 5.84 10^3/uL (1.8-7.7); Neutrophils % 55.4 %; Nucleated Red Blood Cells % 0 %; Platelet Count 308 10^3/cmm (157-399); Red Blood Count 4.57 10^6/uL (3.85-5.65); Red Cell Distribution Width 12.7 % (12.1-15.1); White Blood Count 10.52 10^3/uL (3.29-11.43)
[2024-02-05] MEDS: insulin lispro 100 unit/1 mL SUBCUT ×4 (06:32→12:57)
[2024-02-05 06:40] LABS: Glucose Point of Care 167 mg/dL (70-110)
[2024-02-05 06:41] LABS: Anion Gap 12.1 (5-19); Blood Urea Nitrogen 10 mg/dL (6-20); Calcium 8.8 mg/dL (8.5-10.5); Carbon Dioxide 29 mmol/L (22-29); Chloride 96 mmol/L (98-107); Creatinine Clr Calc Pharmacy 100.5313; Glomerular Filtration Rate 115.8 mL/min (90-130); Glucose 150 mg/dL (65-115); Osmolality Calculated 278 mOsm/kg (285-295); Potassium 4.1 mmol/L (3.5-5.1); Sodium 133 mmol/L (136-145)
[2024-02-05] MEDS: insulin glargine 100 units/1 mL 20 UNIT SUBCUT (08:05)
[2024-02-05] MEDS: morphine ER (12 HR) 15 mg Tablet PO (08:07)
[2024-02-05] MEDS: pregabalin 75 mg Capsule PO (08:12)
[2024-02-05] MEDS: docusate sodium 100 mg Capsule PO (08:12)
[2024-02-05] MEDS: enoxaparin 40 mg/0.4 mL Syringe SUBCUT (08:12)
[2024-02-05] MEDS: pantoprazole DR 40 mg Tablet PO (08:12)
--- NOTE | 2024-02-05 10:44 | P.DS_ITS ---
Discharge Providers Date of Admission: 02/02/24 14:33 Date of Discharge: February 05, 2024 Attending Provider at Admission: Marychuy Neely MD Attending Provider at Discharge: Michel Rice MD Primary Care Provider: Pedro Waller MD Diagnoses at Discharge Discharge Diagnosis (1) Insulin dependent diabetes mellitus: Status: Chronic (2) Diabetic foot ulcer: Status: Acute Qualifiers: Diabetes mellitus type: type 2 Diabetic foot ulcer location: toe Laterality: right Non-pressure ulcer stage: with necrosis of bone Qualified Code(s): E11.621 - Type 2 diabetes mellitus with foot ulcer; L97.514 - Non- pressure chronic ulcer of other part of right foot with necrosis of bone (3) Polyuria: Status: Acute (4) Osteomyelitis: Status: Acute Qualifiers: Laterality: right Osteomyelitis location: foot Osteomyelitis type: other acute Qualified Code(s): M86.171 - Other acute osteomyelitis, right ankle and foot (5) Acute osteomyelitis of toe of right foot: Status: Acute (6) Peripheral neuropathy: Status: Chronic (7) Diabetic neuropathy: Status: Chronic (8) Diabetic peripheral neuropathy associated with type 2 diabetes mellitus: Status: Acute (9) COPD (chronic obstructive pulmonary disease): Status: Chronic Qualifiers: COPD type: COPD with acute exacerbation Qualified Code(s): J44.1 - Chronic obstructive pulmonary disease with (acute) exacerbation (10) Tobacco use disorder, moderate, dependence: Status: Chronic (11) Open wound of index finger: Status: Acute Reason for Visit Reason for Visit: right toe infection Hospital Course Hospital Course 58-year male who was sent by Dr. Cano for osteomyelitis of right fifth toe patient went for right fifth toe amputation at metatarsophalangeal joint 02/03 incision of bone cortex left fourth toe, tissue culture was sent, blood culture showing contamination, he remained afebrile no leukocytosis, he is poorly controlled diabetic, he has been advised not to change dressing until he is evaluated by Dr. Cano in the clinic. He remained on insulin and sliding scale. I have refilled most of his medications at the time of discharge. Will give him anti-MRSA and gram-negative coverage. Dr. Cano advised against IV antibiotics, his blood cultures are likely contamination, source control was done with amputation, hence we have decided to use p.o. antibiotic 14-day regimen. Physical Exam Narrative: Awake and alert Both feet covered with offloading boots Right index finger showing signs of healing No active drainage Pleasant cooperative Nonfocal neuroexam GCS 15 Discharge Data Studies Completed and Pending Completed Studies During Hospitalization Category Date Time Status XR chest 1V portable [id number] Stat Exams 02/02/24 13:43 Completed XR foot LT min 3V* [id number] Routine Exams 02/02/24 19:23 Completed XR foot LT min 3V* [id number] Routine Exams 02/04/24 09:21 Completed XR foot RT min 3V* [id number] Routine Exams 02/04/24 09:21 Completed XR foot RT min 3V* [id number] Stat Exams 02/02/24 12:38 Completed XR hand RT 2V [id number] Routine Exams 02/04/24 09:17 Completed CV ankle brachial index [id number] Routine Ultrasound 02/03/24 19:07 Completed Pending at discharge Category Date Time Status Anaerobic Culture Routine Lab 02/04/24 07:27 Received Anaerobic Culture Routine Lab 02/04/24 07:27 Results Blood Culture Stat Lab 02/02/24 14:01 Results Tissue Culture and Gram Stain Routine Lab 02/04/24 07:27 Results Tissue Culture and Gram Stain Routine Lab 02/04/24 07:27 Results Vancomycin Trough Timed Lab 02/05/24 13:00 Ordered Pathology: Surgical [PTH] Routine Pth 02/04/24 07:44 Received Radiology Impressions Chest X-Ray 02/02/24 13:43 IMPRESSION: No acute intrathoracic findings. Laboratory Results WBC 10.52 10^3/uL (3.29-11.43) 02/05/24 05:58 RBC 4.57 10^6/uL (3.85-5.65) 02/05/24 05:58 Hgb 13.30 g/dL (11.27-16.99) 02/05/24 05:58 Hct 39.1 % (37-53) 02/05/24 05:58 MCV 85.6 fl (82-101) 02/05/24 05:58 MCH 29.1 pg (27-33) 02/05/24 05:58 MCHC 34.0 g/dL (30-55) 02/05/24 05:58 RDW 12.7 % (12.1-15.1) 02/05/24 05:58 Plt Count 308 10^3/cmm (157-399) 02/05/24 05:58 MPV 10.0 fL (7.4-10.4) 02/05/24 05:58 Neut % (Auto) 55.4 % 02/05/24 05:58 Lymph % (Auto) 29.7 % 02/05/24 05:58 [place] % (Auto) 10.5 % 02/05/24 05:58 Eos % (Auto) 3.8 % 02/05/24 05:58 Baso % (Auto) 0.3 % 02/05/24 05:58 Neut # (Auto) 5.84 10^3/uL (1.8-7.7) 02/05/24 05:58 Lymph # (Auto) 3.1 10^3/uL (0.8-4.8) 02/05/24 05:58 [place] # (Auto) 1.1 10^3/uL (0.2-0.9) H 02/05/24 05:58 Eos # (Auto) 0.4 10^3/uL (0.0-0.8) 02/05/24 05:58 Baso # (Auto) 0.0 10^3/uL (0.0-0.1) 02/05/24 05:58 Nucleated RBC % (auto) 0 % 02/05/24 05:58 Nucleated RBCs # 0.0 /100WBC 02/05/24 05:58 ESR 35 mm/hr (0-10) H 02/02/24 13:32 Specimen Type Arterial 02/02/24 14:00 Sample Site Brachial, left 02/02/24 14:00 ABG pH 7.39 (7.35-7.45) 02/02/24 14:00 ABG pCO2 41.6 mmHg (35-45) 02/02/24 14:00 ABG pO2 75.8 mmHg (80.0-100.0) L 02/02/24 14:00 ABG HCO3 25.1 mmol/L (22-26) 02/02/24 14:00 ABG O2 Saturation 97.2 02/02/24 14:00 ABG Base Excess 0.0 mmol/L (-2.0-2.0) 02/02/24 14:00 Jay Test N/a 02/02/24 14:00 A-a O2 Gradient 2.7 mmHg (5-10) L 02/02/24 14:00 Hematocrit 41.2 % (42-52) L 02/02/24 14:00 Hgb O2 Saturation 86.7 % (95-100) L 02/02/24 14:00 Carboxyhemoglobin 10.1 %THgb (0.4-20.1) 02/02/24 14:00 Methemoglobin 0.7 % (0.4-1.5) 02/02/24 14:00 Total Hemoglobin 13.4 g/dL (14-18) L 02/02/24 14:00 Sodium 134.0 mmol/L (131-143) 02/02/24 14:00 Potassium 3.7 mmol/L (3.5-5.0) 02/02/24 14:00 Glucose 474.0 mg/dL (70-115) H 02/02/24 14:00 Ionized Calcium 1.1 mmol/L (1.1-1.4) 02/02/24 14:00 O2 Delivery Device Room air 02/02/24 14:00 [employer] Administrator ID [id number] 02/02/24 14:00 Sodium 133 mmol/L (136-145) L 02/05/24 05:58 Potassium 4.1 mmol/L (3.5-5.1) 02/05/24 05:58 Chloride 96 mmol/L (98-107) L 02/05/24 05:58 Carbon Dioxide 29 mmol/L (22-29) 02/05/24 05:58 Anion Gap 12.1 (5-19) 02/05/24 05:58 BUN 10 mg/dL (6-20) 02/05/24 05:58 Creatinine 0.7 mg/dL (0.7-1.2) 02/05/24 05:58 GFR Calculation 115.8 mL/min (90-130) 02/05/24 05:58 Glucose 150 mg/dL (65-115) H 02/05/24 05:58 POC Glucose 167 mg/dL (70-110) H 02/05/24 06:29 Estimat Average Glucose 260 02/03/24 05:30 Hemoglobin A1c 10.7 % (4.0-6.0) H 02/03/24 05:30 Calculated Osmolality 278 mOsm/kg (285-295) L 02/05/24 05:58 Lactic Acid 1.8 mmol/L (0.5-2.2) 02/03/24 05:30 Lactic Acid (Sepsis) 1.5 mmol/L (0.5-2.2) 02/02/24 16:51 Calcium 8.8 mg/dL (8.5-10.5) 02/05/24 05:58 Phosphorus 3.1 mg/dL (2.5-4.5) 02/03/24 05:30 Magnesium 1.8 mg/dL (1.7-2.3) 02/03/24 05:30 Total Bilirubin 0.2 mg/dL (0.15-1.2) 02/02/24 13:32 AST 9 U/L (0-40) 02/02/24 13:32 ALT 10 U/L (0-41) 02/02/24 13:32 Alkaline Phosphatase 126 U/L (40-130) 02/02/24 13:32 Creatine Kinase 50 U/L (39-308) 02/02/24 13:32 C-Reactive Protein 11.9 mg/L (0.0-4.9) H 02/02/24 13:32 Total Protein 7.8 g/dL (6.6-8.7) 02/02/24 13:32 Albumin 3.9 g/dL (3.5-5.2) 02/02/24 13:32 Globulin 3.9 g/dL (1.3-4.6) 02/02/24 13:32 Urine Color Yellow (Yellow) 02/02/24 17:20 Urine Appearance Clear (CLEAR) 02/02/24 17:20 Urine pH 6.5 (5-7) 02/02/24 17:20 Ur Specific [place] 1.005 (1.005-1.030) 02/02/24 17:20 Urine Protein Neg (Negative) 02/02/24 17:20 Urine Glucose (UA) Norm (Normal) 02/02/24 17:20 Urine Ketones Negative (Negative) 02/02/24 17:20 Urine Blood Neg (Negative) 02/02/24 17:20 Urine Nitrate Negative (Negative) 02/02/24 17:20 Urine Bilirubin Neg (Negative) 02/02/24 17:20 Urine Urobilinogen Norm mg/dL (Negative) 02/02/24 17:20 Ur Leukocyte Esterase Negative (Negative) 02/02/24 17:20 Serum Ketones Negative (Negative) 02/02/24 13:32 Vitals Last Vital Signs Temp 98.1 F 02/05/24 07:35 Pulse 82 02/05/24 08:09 Resp 16 02/05/24 08:09 BP 122/68 02/05/24 07:35 Pulse Ox 96 02/05/24 08:09 O2 Del Method Room Air 02/05/24 08:09 Discharge Plan Discharge Patient Disposition: Home Condition: Stable Prescriptions: New levofloxacin 750 mg tablet 750 mg PO DAILY 14 Days Qty: 14 0RF cefpodoxime 200 mg tablet 200 mg PO BID 14 Days Qty: 28 0RF Rx Instructions: must administer with a meal/food doxycycline hyclate 100 mg tablet 100 mg PO BID 14 Days Qty: 28 0RF bacitracin zinc 500 unit/gram ointment 1 applic topical BID Qty: 14 0RF Rx Instructions: Apply on your right index finger Continued ipratropium bromide 0.02 % solution 2.5 ml inhalation Q6H PRN (Reason: shortness of breath or wheezing) Qty: 75 3RF (DME) blood-glucose meter [OneTouch Ultra2 Meter] Misc See Rx Instructions .Route Qty: 1 0RF Rx Instructions: use 3 times a day albuterol sulfate 2.5 mg /3 mL (0.083 %) solution for nebulization 2.5 mg inhalation QID PRN (Reason: shortness of breath or wheezing) Qty: 180 0RF (DME) nebulizer, tubing, supplies See Rx Instructions .Route .MEDSUPPLY Qty: 1 0RF Rx Instructions: As directed (DME) Dexcom G6 Sensor Device See Rx Instructions .Route Qty: 3 0RF Rx Instructions: As directed (DME) Dexcom G6 Editor [employer] Founder Misc See Rx Instructions .Route Qty: 1 0RF Rx Instructions: As directed (DME) Dexcom G6 Transmitter Device See Rx Instructions .Route Qty: 1 0RF Rx Instructions: As directed (DME) Blood Glucose Test Strip See Rx Instructions .Route Qty: 50 3RF Rx Instructions: As directed (DME) Diabetic shoes See Rx Instructions .Route .MEDSUPPLY Qty: 1 0RF Rx Instructions: As directed sildenafil 25 mg tablet See Rx Instructions .ROUTE .COMPLEX Qty: 30 0RF Dose Instruction: TAKE ONE TABLET BY MOUTH daily NEEDED 30 minutes TO FOUR hours before activity, no more THAN FOUR tablets in 24 hours Rx Instructions: TAKE ONE TABLET BY MOUTH daily NEEDED 30 minutes TO FOUR hours before activity, no more THAN FOUR tablets in 24 hours (DME) lancets [OneTouch Delica Plus Lancet] 33 gauge misc See Rx Instructions .ROUTE .COMPLEX Qty: 100 2RF Dose Instruction: USE DIRECTED Rx Instructions: USE DIRECTED albuterol sulfate 90 mcg/actuation HFA aerosol inhaler 1 inh inhalation QID PRN (Reason: shortness of breath or wheezing) Qty: 8.5 3RF Breztri Aerosphere 160-9-4.8 mcg/actuation HFA aerosol inhaler 2 inh inhalation BID Qty: 10.7 5RF Lipitor 40 mg tablet 40 mg PO QPM morphine 15 mg tablet extended release 15 mg PO Q12H 30 Days Qty: 14 0RF Novolog FlexPen U-100 Insulin 100 unit/mL (3 mL) insulin pen 10 unit SUBCUT TID Qty: 15 10RF Rx Instructions: maximum 40 units/day Basaglar KwikPen U-100 Insulin 100 unit/mL (3 mL) insulin pen 40 unit SUBCUT BID Qty: 15 4RF Rx Instructions: to replace levemir. pregabalin 75 mg capsule 75 mg PO BID Qty: 60 2RF Changed glipizide 10 mg tablet 10 mg PO DAILY Qty: 90 3RF Discontinued diclofenac sodium 75 mg tablet,delayed release (DR/EC) 75 mg PO Q12H PRN (Reason: pain) Qty: 60 0RF Discharge Orders: Discharge Order (Routine); Ordered 02/05/24 Ordered By: Michel Rice Referrals: Rc Cano DPM [Physician] - 1-3 days Pedro Waller MD [Primary Care Provider] - Patient Instructions: Opioid Safety Activity Restrictions/Additional Instructions: Dr. Cano recommended no showering, both feet need to remain dry, current dressing will be changed by Dr. Cano in the clinic when you see him Will advise you how to change dressing further at the clinic I am giving you 14 days of p.o. antibiotics Discharge Attestations Time Spent in Discharge Care*: greater than 30 min Quality Metrics Clinical Quality Measures [ No reported AMI, CVA or VTE this stay] Coding Level of Care Code Acute Code for Chg Fwd Diagnoses Insulin dependent diabetes mellitus Diabetic ulcer of toe of right foot associated with type 2 diabetes mellitus, with necrosis of bone E11.621; L97.514 Diabetes mellitus type: type 2 Diabetic foot ulcer location: toe Laterality: right Non-pressure ulcer stage: with necrosis of bone Polyuria R35.89 Other acute osteomyelitis of right foot M86.171 Laterality: right Osteomyelitis location: foot Osteomyelitis type: other acute Acute osteomyelitis of toe of right foot M86.171 Peripheral neuropathy G62.9 Diabetic neuropathy E11.40 Diabetic peripheral neuropathy associated with type 2 diabetes mellitus E11.42 Chronic obstructive pulmonary disease with acute exacerbation J44.1 COPD type: COPD with acute exacerbation Tobacco use disorder, moderate, dependence F17.200 Open wound of index finger S61.208A
[2024-02-05 11:01] LABS: Glucose Point of Care 141 mg/dL (70-110)
[2024-02-05] MEDS: neomycin-poly-bacitracin oint 28 gm 1 APPLIC TOPICAL (11:02)
--- NOTE | 2024-02-05 11:36 | PC.SOCIAL ---
Pg 2 IMM Explained to pt Pg 2 IMM. No questions voiced. Provided pt a copy. Initialed, dated, & timed a copy & placed in chart.
== END 2024-02-05 13:30 | disposition home or self-care (01) | DRG 617 ==
LOC: ER 13:54 → MEDSURG 14:33
PROVIDERS: Emergency Medicine; Physician Assistant; Podiatrist Foot & Ankle Surgery; Admitting Provider Hospitalist; Emergency Provider Family Medicine; PCP Family Medicine; Visit Provider Internal Medicine
PROC: 0Y6X0Z0 Detachment at Right 5th Toe, Complete, Open Approach (ICD-10-PCS; principal; 2024-02-04 07:00)
PROC: 0Y6X0Z0 Detachment at Right 5th Toe, Complete, Open Approach (ICD-10-PCS; 2024-02-04 07:00)
DX: E11.69 Type 2 diabetes mellitus with other specified complication (principal); J44.1 Chronic obstructive pulmonary disease with (acute) exacerbation; M86.171 Other acute osteomyelitis, right ankle and foot; M86.172 Other acute osteomyelitis, left ankle and foot; E11.65 Type 2 diabetes mellitus with hyperglycemia; E11.42 Type 2 diabetes mellitus with diabetic polyneuropathy; E11.621 Type 2 diabetes mellitus with foot ulcer; L97.514 Non-pressure chronic ulcer of other part of right foot with necrosis of bone; F17.210 Nicotine dependence, cigarettes, uncomplicated; M50.30 Other cervical disc degeneration, unspecified cervical region; I25.10 Atherosclerotic heart disease of native coronary artery without angina pectoris; E78.00 Pure hypercholesterolemia, unspecified; L03.032 Cellulitis of left toe; N52.9 Male erectile dysfunction, unspecified; S61.200A Unspecified open wound of right index finger without damage to nail, initial encounter; X58.XXXA Exposure to other specified factors, initial encounter; Z79.84 Long term (current) use of oral hypoglycemic drugs; Z79.4 Long term (current) use of insulin
CPT/HCPCS: 36415; 36416; 36600; 71045; 73120; 73630; 80048; 80051; 80053; 81003; 82009; 82330; 82550; 82805; 82962; 83036; 83605; 83735; 84100; 85025; 85651; 86140; 87040; 87070; 87075; 87077; 87150; 87176; 87186; 87205; 88305; 88311; 93005; 93922; 96365; 96372; 96375; 99285; J1650; J1815; J2270; J2543; J2704; J3010; J3370; J3480; J3490; J7030; J7050

== ENCOUNTER → 2024-02-09 10:09 | Outpatient (BNVA) | payer MEDICARE, MEDICAID, SELFPAY | PROVIDERS: PCP Family Medicine; Visit Provider Podiatrist Foot & Ankle Surgery | DX: L97.524 Non-pressure chronic ulcer of other part of left foot with necrosis of bone (principal); Z89.421 Acquired absence of other right toe(s); E11.621 Type 2 diabetes mellitus with foot ulcer; Z79.4 Long term (current) use of insulin | CPT/HCPCS: 99213 ==

== ENCOUNTER → 2024-02-17 14:56 | Outpatient (BNVA) | payer MEDICARE, MEDICAID, SELFPAY | PROVIDERS: PCP Family Medicine; Visit Provider Podiatrist Foot & Ankle Surgery | DX: L97.524 Non-pressure chronic ulcer of other part of left foot with necrosis of bone (principal); Z89.421 Acquired absence of other right toe(s); E11.621 Type 2 diabetes mellitus with foot ulcer; Z79.4 Long term (current) use of insulin | CPT/HCPCS: 99213 ==

== ENCOUNTER → 2024-02-23 13:07 | Outpatient (BNVA) | payer MEDICARE, MEDICAID, SELFPAY | PROVIDERS: PCP Family Medicine; Visit Provider Podiatrist Foot & Ankle Surgery | DX: L97.524 Non-pressure chronic ulcer of other part of left foot with necrosis of bone (principal); Z89.421 Acquired absence of other right toe(s) | CPT/HCPCS: 99213 ==

== ENCOUNTER → 2024-03-09 11:28 | Outpatient (BNVA) | payer MEDICARE, MEDICAID, SELFPAY | PROVIDERS: PCP Family Medicine; Visit Provider Podiatrist Foot & Ankle Surgery | DX: L97.524 Non-pressure chronic ulcer of other part of left foot with necrosis of bone (principal); Z89.421 Acquired absence of other right toe(s); M54.12 Radiculopathy, cervical region; E11.40 Type 2 diabetes mellitus with diabetic neuropathy, unspecified; J44.1 Chronic obstructive pulmonary disease with (acute) exacerbation; M47.816 Spondylosis without myelopathy or radiculopathy, lumbar region; E11.621 Type 2 diabetes mellitus with foot ulcer; Z79.4 Long term (current) use of insulin | CPT/HCPCS: 99213 ==

== ENCOUNTER → 2024-04-06 14:20 | Outpatient (BNVA) | payer MEDICARE, MEDICAID, SELFPAY | PROVIDERS: PCP Family Medicine; Visit Provider Podiatrist Foot & Ankle Surgery | DX: L97.524 Non-pressure chronic ulcer of other part of left foot with necrosis of bone (principal); Z89.421 Acquired absence of other right toe(s); M54.12 Radiculopathy, cervical region; E11.40 Type 2 diabetes mellitus with diabetic neuropathy, unspecified; J44.1 Chronic obstructive pulmonary disease with (acute) exacerbation; E11.621 Type 2 diabetes mellitus with foot ulcer; Z79.4 Long term (current) use of insulin | CPT/HCPCS: 99213 ==

== ENCOUNTER → 2024-05-12 10:14 | Outpatient (BNVA) | payer MEDICARE, MEDICAID, SELFPAY | PROVIDERS: PCP Family Medicine; Visit Provider Internal Medicine Pulmonary Disease | DX: J44.1 Chronic obstructive pulmonary disease with (acute) exacerbation (principal); Z71.6 Tobacco abuse counseling; Z12.2 Encounter for screening for malignant neoplasm of respiratory organs; G47.30 Sleep apnea, unspecified; R06.01 Orthopnea; R06.02 Shortness of breath; F17.210 Nicotine dependence, cigarettes, uncomplicated | CPT/HCPCS: 99214 ==

== ENCOUNTER → 2024-06-29 16:17 | Outpatient (BNVA) | payer MEDICARE, MEDICAID, SELFPAY | PROVIDERS: PCP Family Medicine; Visit Provider Family Medicine | DX: E11.9 Type 2 diabetes mellitus without complications (principal) | CPT/HCPCS: 83036 ==

== ENCOUNTER → 2024-07-28 10:30 | Outpatient (BNVA) | payer MEDICARE, MEDICAID, SELFPAY | PROVIDERS: PCP Family Medicine; Referring Provider Family Medicine; Visit Provider Internal Medicine | DX: E11.9 Type 2 diabetes mellitus without complications (principal); E78.00 Pure hypercholesterolemia, unspecified; Z79.4 Long term (current) use of insulin; Z79.84 Long term (current) use of oral hypoglycemic drugs | CPT/HCPCS: 99204 ==

== ENCOUNTER 2024-10-23 14:39 | Emergency (ER) | payer MEDICARE, MEDICAID, SELFPAY ==
[2024-10-23 14:46] VITALS: BP 139/77; PULSE 103; RESP 18; TEMP 36.6; O2SAT 97; BMI 21.9
[2024-10-23 16:15] VITALS: BP 129/88; PULSE 94; O2SAT 93
--- NOTE | 2024-10-23 17:35 | W.ED.EAR ---
Documented by User: CHICHI Yanes 10/23/24 17:38 HPI - Ear Problem General: Chief complaint: Ear Stated complaint: bug in right ear, right foot toenails Time Seen by Provider: 10/23/24 15:02 Source: patient Mode of arrival: ambulatory Limitations: no limitations History of Present Illness: Patient presents emergency department today for evaluation treatment of several different issues. Patient reports that early this morning he had a bug crawl into his ear. States it happened during the night and has not been able to go back to sleep since. He did put hydrogen peroxide in the ear and denies any acute pain. Has not had any bleeding from the ear canal. Patient then also indicates he tried to trim back his toenails a few days ago and is concerned for developing infection. Patient is diabetic and states he has been told not to trim his own toenails but, reports that while attempting to cut them, cut the skin on the end of his fourth digit and aggravated the nail bed of his second toe. Patient has a surgically absent right fifth toe due to his diabetes. States he has been trying to keep the area bandaged. Related Data Previous Rx's Medication Instructions Recorded nebulizer, tubing, supplies #1 ea 07/16/23 Diabetic shoes #1 ea 10/13/23 alcohol swabs 1 pad topical DIRECTED #200 ea 02/08/24 blood sugar diagnostic (Blood #200 ea 02/08/24 Glucose Test strips) blood-glucose meter #1 ea 02/08/24 lancets #200 ea 02/08/24 lancets 33 gauge (OneTouch Delica #100 ea 02/08/24 Plus Lancet) glipizide 10 mg tablet 10 mg PO DAILY #90 tabs 02/15/24 insulin aspart U-100 100 unit/mL 10 unit (0.1 mL) SUBCUT TID #15 mL 02/15/24 (3 mL) subcutaneous pen (Novolog FlexPen U-100 Insulin aspart) ipratropium 0.5 mg-albuterol 3 mg 3 ml inhalation Q6H PRN wheezing 05/12/24 (2.5 mg base)/3 mL nebulization #360 mL soln ipratropium bromide 0.02 % 2.5 ml inhalation Q6H PRN 06/29/24 solution for inhalation shortness of breath or wheezing #75 mL levofloxacin 750 mg tablet 750 mg PO DAILY 7 days #7 tabs 06/29/24 budesonide 160 mcg-glycopyr 9 2 inh inhalation BID #10.7 grams 07/01/24 mcg-formot 4.8 mcg/actuation HFA inhaler (Breztri Aerosphere) insulin glargine 100 unit/mL (3 50 unit (0.5 mL) SUBCUT BID #30 mL 07/01/24 mL) subcutaneous pen (Lantus Solostar U-100 Insulin) albuterol sulfate 90 mcg/actuation 2 inh inhalation Q4H PRN shortness 07/25/24 aerosol inhaler of breath or wheezing #8.5 grams sildenafil 25 mg tablet See Rx Instructions .Route 07/25/24 .COMPLEX #30 tabs blood-glucose meter,continuous #1 ea 07/28/24 (Dexcom G7 Outbound Supervisor) atorvastatin 40 mg tablet See Rx Instructions .Route 08/19/24 .COMPLEX #90 tabs pregabalin 75 mg capsule 75 mg PO BID #60 caps 10/10/24 [place] #200 ea 10/13/24 blood-glucose sensor (Dexcom G7 #3 ea 10/13/24 Sensor device) amoxicillin 500 mg-potassium 1 tab PO BID #14 tabs 10/23/24 clavulanate 125 mg tablet (Augmentin) ofloxacin 0.3 % ear drops 10 drp otic (ear) DAILY 7 days #5 10/23/24 mL Allergies Allergy/AdvReac Type Severity Reaction Status Date / Time No Known Allergies Allergy Verified 10/23/24 14:48 Review of Systems General: Reports: 10 or more systems reviewed and unremarkable except in HPI and below PFSH ED PFSH: Medical History Tobacco abuse counseling Tobacco use disorder, moderate, dependence COPD (chronic obstructive pulmonary disease) Insulin dependent diabetes mellitus Coronary artery disease Hypercholesteremia Open wound of index finger Diabetic peripheral neuropathy associated with type 2 diabetes mellitus Acute osteomyelitis of toe of right foot Diabetic foot ulcer Osteomyelitis Peripheral neuropathy Polyuria History of echocardiogram 11/2022 EF 55-60%, no pulmonary hypertension Degenerative disc disease, cervical Erectile dysfunction Diabetic neuropathy Nicotine dependence Diabetes Surgical History H/O hand surgery right Family History Father Cancer Father had GI cancer, was diagnosed at age 60 Social History Smoking and tobacco/nicotine status: never used tobacco/nicotine Alcohol intake: never Substance/Drug Use: never Lives independently: Yes Housing: House Current occupational status: disabled Special shyam needs: No Agree to transfusion: Yes Physical Exam Const: COMMON NORMALS: no acute distress, patient oriented x3 and alert HENMT: OTHER: Patient does have what appears to be an insect of some sort in the distal right ear canal. There is some erythema and abrasion noted in the mid canal without a significant amount of any type of blood accumulation in the canal. TM appears to be intact without any signs of acute concern at this time. Bug does appear to be . Eye: COMMON NORMALS: Equal, round and reactive pupils present, EOMs intact bilaterally and conjunctivae normal CONJUNCTIVA: Yes conjunctivae normal PUPIL: Yes Equal, round and reactive pupils present Neck/C-Spine: COMMON NORMALS: no JVD Lymph: LYMPHATIC: no lymphadenopathy noted Resp: COMMON NORMALS: normal respiratory effort, No retractions and No use of accessory muscles Cardio: COMMON NORMALS: no JVD and regular rate RATE: regular rate : COMMON NORMALS: Yes no CVA tenderness BLADDER/KIDNEY EXAM: Yes no CVA tenderness Back/Pelvis: COMMON NORMALS: no CVA tenderness, thoracic and lumbar spine normal to inspection and thoraco-lumbar ROM normal Extremity: COMMON NORMALS: normal to inspection, full ROM and no pedal edema Neuro: COMMON NORMALS: patient oriented x3 SENSORIUM/ORIENTATION: Yes alert Skin: OTHER: Patient has loss of soft tissue to the distal toe pad of the right fourth toe with some yellow, purulent accumulation overlying the area. Patient has near loss of right second toenail from the nail bed with an erythematous base and overlying yellow, purulent accumulation there as well. Patient has some Band-Aids wrapped around the toes but, both areas of injury are currently exposed. Patient was wearing a sock in close toed shoes on arrival. Patient has significant calluses and dry skin noted to the plantar aspect of the right foot. No other signs of skin wound or active foot ulcerations. Course Vital Signs: Vital signs: Vital Signs Temperature 97.8 F 10/23/24 14:46 Pulse Rate 97 10/23/24 18:00 Respiratory Rate 18 10/23/24 14:46 Blood Pressure 108/73 10/23/24 18:00 Pulse Oximetry 94 10/23/24 18:00 Oxygen Delivery Me thod Room Air 10/23/24 18:00 Discharge Plan Discharge Patient Disposition: Home Clinical Impression: Acute foreign body of right ear canal Condition: Stable Prescriptions: New amoxicillin-pot clavulanate [Augmentin] 500-125 mg tablet 1 tab PO BID Qty: 14 0RF ofloxacin 0.3 % drops 10 drp otic (ear) DAILY 7 Days Qty: 5 0RF No Action Novolog FlexPen U-100 Insulin 100 unit/mL (3 mL) insulin pen 10 unit SUBCUT TID Qty: 15 10RF Rx Instructions: maximum 40 units/day glipizide 10 mg tablet 10 mg PO DAILY Qty: 90 3RF (DME) Dexcom G7 Outbound Supervisor Misc See Rx Instructions .Route Qty: 1 0RF Rx Instructions: As directed (DME) nebulizer, tubing, supplies See Rx Instructions .Route .MEDSUPPLY Qty: 1 0RF Rx Instructions: As directed ipratropium-albuterol 0.5 mg-3 mg(2.5 mg base)/3 mL solution for nebulization 3 ml inhalation Q6H PRN (Reason: wheezing) Qty: 360 6RF albuterol sulfate 90 mcg/actuation HFA aerosol inhaler 2 inh inhalation Q4H PRN (Reason: shortness of breath or wheezing) Qty: 8.5 3RF sildenafil 25 mg tablet See Rx Instructions .ROUTE .COMPLEX Qty: 30 0RF Dose Instruction: TAKE ONE TABLET BY MOUTH daily NEEDED 30 minutes TO FOUR hours before activity, no more THAN FOUR tablets in 24 hours Rx Instructions: TAKE ONE TABLET BY MOUTH daily NEEDED 30 minutes TO FOUR hours before activity, no more THAN FOUR tablets in 24 hours levofloxacin 750 mg tablet 750 mg PO DAILY 7 Days Qty: 7 0RF ipratropium bromide 0.02 % solution 2.5 ml inhalation Q6H PRN (Reason: shortness of breath or wheezing) Qty: 75 2RF (DME) Diabetic shoes See Rx Instructions .Route .MEDSUPPLY Qty: 1 0RF Rx Instructions: As directed (DME) blood-glucose meter Misc See Rx Instructions .MEDSUPPLY Qty: 1 0RF Rx Instructions: Use as directed for checking blood sugar (DME) Blood Glucose Test Strip See Rx Instructions .MEDSUPPLY Qty: 200 12RF Rx Instructions: Use as directed with glucometer to check blood sugar (DME) lancets Misc See Rx Instructions .MEDSUPPLY Qty: 200 12RF Rx Instructions: Use as directed to prick skin for blood sugar checks alcohol swabs Pads, Medicated 1 pad topical DIRECTED Qty: 200 12RF Rx Instructions: Use as directed to clean skin prior to finger stick or medication injection (DME) lancets [OneTouch Delica Plus Lancet] 33 gauge misc See Rx Instructions .ROUTE .COMPLEX Qty: 100 2RF Dose Instruction: USE DIRECTED Rx Instructions: USE DIRECTED insulin glargine [Lantus Solostar U-100 Insulin] 100 unit/mL (3 mL) insulin pen 50 unit SUBCUT BID Qty: 30 3RF Breztri Aerosphere 160-9-4.8 mcg/actuation HFA aerosol inhaler 2 inh inhalation BID Qty: 10.7 6RF atorvastatin 40 mg tablet See Rx Instructions .ROUTE .COMPLEX Qty: 90 0RF Dose Instruction: TAKE 1 TABLET BY MOUTH EVERY DAY Rx Instructions: TAKE 1 TABLET BY MOUTH EVERY DAY pregabalin 75 mg capsule 75 mg PO BID Qty: 60 2RF (DME) [place] See Rx Instructions .Route .MEDSUPPLY Qty: 200 1RF Rx Instructions: As directed (DME) Dexcom G7 Sensor Device See Rx Instructions .ROUTE .COMPLEX Qty: 3 0RF Dose Instruction: USE DIRECTED Rx Instructions: USE DIRECTED Discharge Orders: Discharge ED (Routine); Ordered 10/23/24 Ordered By: Dexter Merlos Referrals: Pedro Waller MD [Primary Care Provider] - 4-7 days Discharge Diet: Advance as tolerated Discharge Activity: Resume usual activity Patient Instructions: Foreign Body - Ear Coding Level of Care Code ED Correctional Case Manager for Chg Fwd Documented by User: Dexter Merlos MD 10/23/24 18:45 HPI - Ear Problem General: Chief complaint: Ear Stated complaint: bug in right ear, right foot toenails Time Seen by Provider: 10/23/24 15:02 Related Data Previous Rx's Medication Instructions Recorded nebulizer, tubing, supplies #1 ea 07/16/23 Diabetic shoes #1 ea 10/13/23 alcohol swabs 1 pad topical DIRECTED #200 ea 02/08/24 blood sugar diagnostic (Blood #200 ea 02/08/24 Glucose Test strips) blood-glucose meter #1 ea 02/08/24 lancets #200 ea 02/08/24 lancets 33 gauge (OneTouch Delica #100 ea 02/08/24 Plus Lancet) glipizide 10 mg tablet 10 mg PO DAILY #90 tabs 02/15/24 insulin aspart U-100 100 unit/mL 10 unit (0.1 mL) SUBCUT TID #15 mL 02/15/24 (3 mL) subcutaneous pen (Novolog FlexPen U-100 Insulin aspart) ipratropium 0.5 mg-albuterol 3 mg 3 ml inhalation Q6H PRN wheezing 05/12/24 (2.5 mg base)/3 mL nebulization #360 mL soln ipratropium bromide 0.02 % 2.5 ml inhalation Q6H PRN 06/29/24 solution for inhalation shortness of breath or wheezing #75 mL levofloxacin 750 mg tablet 750 mg PO DAILY 7 days #7 tabs 06/29/24 budesonide 160 mcg-glycopyr 9 2 inh inhalation BID #10.7 grams 07/01/24 mcg-formot 4.8 mcg/actuation HFA inhaler (Breztri Aerosphere) insulin glargine 100 unit/mL (3 50 unit (0.5 mL) SUBCUT BID #30 mL 07/01/24 mL) subcutaneous pen (Lantus Solostar U-100 Insulin) albuterol sulfate 90 mcg/actuation 2 inh inhalation Q4H PRN shortness 07/25/24 aerosol inhaler of breath or wheezing #8.5 grams sildenafil 25 mg tablet See Rx Instructions .Route 07/25/24 .COMPLEX #30 tabs blood-glucose meter,continuous #1 ea 07/28/24 (Dexcom G7 Outbound Supervisor) atorvastatin 40 mg tablet See Rx Instructions .Route 08/19/24 .COMPLEX #90 tabs pregabalin 75 mg capsule 75 mg PO BID #60 caps 10/10/24 [place] #200 ea 10/13/24 blood-glucose sensor (Dexcom G7 #3 ea 10/13/24 Sensor device) amoxicillin 500 mg-potassium 1 tab PO BID #14 tabs 10/23/24 clavulanate 125 mg tablet (Augmentin) ofloxacin 0.3 % ear drops 10 drp otic (ear) DAILY 7 days #5 10/23/24 mL Allergies Allergy/AdvReac Type Severity Reaction Status Date / Time No Known Allergies Allergy Verified 10/23/24 14:48 PFSH ED PFSH: Medical History Tobacco abuse counseling Tobacco use disorder, moderate, dependence COPD (chronic obstructive pulmonary disease) Insulin dependent diabetes mellitus Coronary artery disease Hypercholesteremia Open wound of index finger Diabetic peripheral neuropathy associated with type 2 diabetes mellitus Acute osteomyelitis of toe of right foot Diabetic foot ulcer Osteomyelitis Peripheral neuropathy Polyuria History of echocardiogram 11/2022 EF 55-60%, no pulmonary hypertension Degenerative disc disease, cervical Erectile dysfunction Diabetic neuropathy Nicotine dependence Diabetes Surgical History H/O hand surgery right Family History Father Cancer Father had GI cancer, was diagnosed at age 60 Social History Smoking and tobacco/nicotine status: never used tobacco/nicotine Alcohol intake: never Substance/Drug Use: never Lives independently: Yes Housing: House Current occupational status: disabled Special shyam needs: No Agree to transfusion: Yes Procedures FB Removal Ear Location: ear canal (R) Foreign Body Suspected: insect Foreign Body Removed: yes Foreign Body Removal Technique: instrumentation Tympanic Membrane Intact Post Procedure: Yes Patient Tolerated Procedure: well Complications: none Course Vital Signs: Vital signs: Vital Signs Temperature 97.8 F 10/23/24 14:46 Pulse Rate 97 10/23/24 18:00 Respiratory Rate 18 10/23/24 14:46 Blood Pressure 108/73 10/23/24 18:00 Pulse Oximetry 94 10/23/24 18:00 Oxygen Delivery Me thod Room Air 10/23/24 18:00 MDM - Ear Medical Decision Making Patient presents with foreign body to his right ear he had a cockroach in his right ear was able to remove it with alligator forceps he also concerned of trimming his toes too short we will place him on oral antibiotics and have him follow-up with his PCP and return if worsening. No radiology studies performed this visit Discharge Plan Discharge Patient Disposition: Home Clinical Impression: Acute foreign body of right ear canal Condition: Stable Prescriptions: New amoxicillin-pot clavulanate [Augmentin] 500-125 mg tablet 1 tab PO BID Qty: 14 0RF ofloxacin 0.3 % drops 10 drp otic (ear) DAILY 7 Days Qty: 5 0RF No Action Novolog FlexPen U-100 Insulin 100 unit/mL (3 mL) insulin pen 10 unit SUBCUT TID Qty: 15 10RF Rx Instructions: maximum 40 units/day glipizide 10 mg tablet 10 mg PO DAILY Qty: 90 3RF (DME) Dexcom G7 Outbound Supervisor Misc See Rx Instructions .Route Qty: 1 0RF Rx Instructions: As directed (DME) nebulizer, tubing, supplies See Rx Instructions .Route .MEDSUPPLY Qty: 1 0RF Rx Instructions: As directed ipratropium-albuterol 0.5 mg-3 mg(2.5 mg base)/3 mL solution for nebulization 3 ml inhalation Q6H PRN (Reason: wheezing) Qty: 360 6RF albuterol sulfate 90 mcg/actuation HFA aerosol inhaler 2 inh inhalation Q4H PRN (Reason: shortness of breath or wheezing) Qty: 8.5 3RF sildenafil 25 mg tablet See Rx Instructions .ROUTE .COMPLEX Qty: 30 0RF Dose Instruction: TAKE ONE TABLET BY MOUTH daily NEEDED 30 minutes TO FOUR hours before activity, no more THAN FOUR tablets in 24 hours Rx Instructions: TAKE ONE TABLET BY MOUTH daily NEEDED 30 minutes TO FOUR hours before activity, no more THAN FOUR tablets in 24 hours levofloxacin 750 mg tablet 750 mg PO DAILY 7 Days Qty: 7 0RF ipratropium bromide 0.02 % solution 2.5 ml inhalation Q6H PRN (Reason: shortness of breath or wheezing) Qty: 75 2RF (DME) Diabetic shoes See Rx Instructions .Route .MEDSUPPLY Qty: 1 0RF Rx Instructions: As directed (DME) blood-glucose meter Misc See Rx Instructions .MEDSUPPLY Qty: 1 0RF Rx Instructions: Use as directed for checking blood sugar (DME) Blood Glucose Test Strip See Rx Instructions .MEDSUPPLY Qty: 200 12RF Rx Instructions: Use as directed with glucometer to check blood sugar (DME) lancets Misc See Rx Instructions .MEDSUPPLY Qty: 200 12RF Rx Instructions: Use as directed to prick skin for blood sugar checks alcohol swabs Pads, Medicated 1 pad topical DIRECTED Qty: 200 12RF Rx Instructions: Use as directed to clean skin prior to finger stick or medication injection (DME) lancets [OneTouch Delica Plus Lancet] 33 gauge misc See Rx Instructions .ROUTE .COMPLEX Qty: 100 2RF Dose Instruction: USE DIRECTED Rx Instructions: USE DIRECTED insulin glargine [Lantus Solostar U-100 Insulin] 100 unit/mL (3 mL) insulin pen 50 unit SUBCUT BID Qty: 30 3RF Breztri Aerosphere 160-9-4.8 mcg/actuation HFA aerosol inhaler 2 inh inhalation BID Qty: 10.7 6RF atorvastatin 40 mg tablet See Rx Instructions .ROUTE .COMPLEX Qty: 90 0RF Dose Instruction: TAKE 1 TABLET BY MOUTH EVERY DAY Rx Instructions: TAKE 1 TABLET BY MOUTH EVERY DAY pregabalin 75 mg capsule 75 mg PO BID Qty: 60 2RF (DME) [place] See Rx Instructions .Route .MEDSUPPLY Qty: 200 1RF Rx Instructions: As directed (DME) Dexcom G7 Sensor Device See Rx Instructions .ROUTE .COMPLEX Qty: 3 0RF Dose Instruction: USE DIRECTED Rx Instructions: USE DIRECTED Discharge Orders: Discharge ED (Routine); Ordered 10/23/24 Ordered By: Dexter Merlos Referrals: Pedro Waller MD [Primary Care Provider] - 4-7 days Discharge Diet: Advance as tolerated Discharge Activity: Resume usual activity Patient Instructions: Foreign Body - Ear Coding Level of Care Code ED Correctional Case Manager for Chg Carlos
[2024-10-23 18:00] VITALS: BP 108/73; PULSE 97; O2SAT 94
[2024-10-23] MEDS: cephALEXin 500 mg Capsule PO (18:07)
--- NOTE | 2024-10-23 19:06 | PC.NURSE ---
sopke to [facility] about ear drops not available, Dr fleming stated for pt to sisal picker drops in morning.
[2024-10-23 19:26] VITALS: BP 120/79; PULSE 66; O2SAT 97
== END 2024-10-23 19:17 | disposition home or self-care (01) ==
PROVIDERS: Emergency Provider Emergency Medicine; PCP Family Medicine
DX: T16.1XXA Foreign body in right ear, initial encounter (principal); W44.8XXA Other foreign body entering into or through a natural orifice, initial encounter; Z79.2 Long term (current) use of antibiotics; E11.42 Type 2 diabetes mellitus with diabetic polyneuropathy; J44.9 Chronic obstructive pulmonary disease, unspecified; I25.10 Atherosclerotic heart disease of native coronary artery without angina pectoris
CPT/HCPCS: 69200; 99283

== ENCOUNTER 2024-11-25 14:11 | Emergency (ER) | payer MEDICARE, MEDICAID, SELFPAY ==
[2024-11-25 14:12] VITALS: BP 146/79; PULSE 114; RESP 16; TEMP 36.7; O2SAT 97; BMI 22.6
--- NOTE | 2024-11-25 18:09 | ED_ITS ---
HPI - Skin/Abscess/Foreign Bdy 2 General: Chief complaint: Skin/Abscess/Foreign Body Stated complaint: Rash Time Seen by Provider: 11/25/24 17:58 History of Present Illness: Celestino Romero is a 59-year-old man that presents to the emergency department with a blistering rash that starts at his back and radiates along a dermatome to the anterior chest. Located on the right side. History of chickenpox as a child. Has never had a rash like this before. Patient denies fever chills or any other rashes. Describes the pain as a pruritic burning sensation. Onset of symptoms in the last week. Related Data Previous Rx's Medication Instructions Recorded nebulizer, tubing, supplies #1 ea 07/16/23 Diabetic shoes #1 ea 10/13/23 alcohol swabs 1 pad topical DIRECTED #200 ea 02/08/24 blood sugar diagnostic (Blood #200 ea 02/08/24 Glucose Test strips) blood-glucose meter #1 ea 02/08/24 lancets #200 ea 02/08/24 lancets 33 gauge (OneTouch Delica #100 ea 02/08/24 Plus Lancet) glipizide 10 mg tablet 10 mg PO DAILY #90 tabs 02/15/24 insulin aspart U-100 100 unit/mL 10 unit (0.1 mL) SUBCUT TID #15 mL 02/15/24 (3 mL) subcutaneous pen (Novolog FlexPen U-100 Insulin aspart) ipratropium 0.5 mg-albuterol 3 mg 3 ml inhalation Q6H PRN wheezing 05/12/24 (2.5 mg base)/3 mL nebulization #360 mL soln ipratropium bromide 0.02 % 2.5 ml inhalation Q6H PRN 06/29/24 solution for inhalation shortness of breath or wheezing #75 mL levofloxacin 750 mg tablet 750 mg PO DAILY 7 days #7 tabs 06/29/24 budesonide 160 mcg-glycopyr 9 2 inh inhalation BID #10.7 grams 07/01/24 mcg-formot 4.8 mcg/actuation HFA inhaler (Breztri Aerosphere) insulin glargine 100 unit/mL (3 50 unit (0.5 mL) SUBCUT BID #30 mL 07/01/24 mL) subcutaneous pen (Lantus Solostar U-100 Insulin) sildenafil 25 mg tablet See Rx Instructions .Route 07/25/24 .COMPLEX #30 tabs blood-glucose meter,continuous #1 ea 07/28/24 (Dexcom G7 Treating Machine Operator) atorvastatin 40 mg tablet See Rx Instructions .Route 08/19/24 .COMPLEX #90 tabs pregabalin 75 mg capsule 75 mg PO BID #60 caps 10/10/24 Pen [place] #200 ea 10/13/24 blood-glucose sensor (Dexcom G7 #3 ea 10/13/24 Sensor device) amoxicillin 500 mg-potassium 1 tab PO BID #14 tabs 10/23/24 clavulanate 125 mg tablet (Augmentin) albuterol sulfate 90 mcg/actuation 2 inh inhalation Q4H PRN shortness 10/25/24 aerosol inhaler of breath or wheezing #8.5 grams valacyclovir 1 gram tablet 1,000 mg PO Q8H 7 days #21 tabs 11/25/24 (Valtrex) Allergies Allergy/AdvReac Type Severity Reaction Status Date / Time No Known Allergies Allergy Verified 11/25/24 14:17 Review of Systems 2 General: Reports: 10 or more systems reviewed and unremarkable except in HPI and below PFSH ED 2 PFSH: Medical History Tobacco abuse counseling Tobacco use disorder, moderate, dependence COPD (chronic obstructive pulmonary disease) Insulin dependent diabetes mellitus Coronary artery disease Hypercholesteremia Open wound of index finger Diabetic peripheral neuropathy associated with type 2 diabetes mellitus Acute osteomyelitis of toe of right foot Diabetic foot ulcer Osteomyelitis Peripheral neuropathy Polyuria History of echocardiogram 11/2022 EF 55-60%, no pulmonary hypertension Degenerative disc disease, cervical Erectile dysfunction Diabetic neuropathy Nicotine dependence Diabetes Surgical History H/O hand surgery right Family History Father Cancer Father had GI cancer, was diagnosed at age 60 Social History Smoking and tobacco/nicotine status: never used tobacco/nicotine Alcohol intake: never Substance/Drug Use: never Lives independently: Yes Housing: House Current occupational status: disabled Special shyam needs: No Agree to transfusion: Yes Physical Exam 2 Const: COMMON NORMALS: no acute distress, patient oriented x3 and alert Eye: COMMON NORMALS: Equal, round and reactive pupils present, EOMs intact bilaterally and conjunctivae normal CONJUNCTIVA: Yes conjunctivae normal P UPIL: Yes Equal, round and reactive pupils present Neck/C-Spine: COMMON NORMALS: no JVD Lymph: LYMPHATIC: no lymphadenopathy noted Resp: COMMON NORMALS: normal respiratory effort, No retractions and No use of accessory muscles Cardio: COMMON NORMALS: no JVD and regular rate RATE: regular rate : COMMON NORMALS: Yes no CVA tenderness BLADDER/KIDNEY EXAM: Yes no CVA tenderness Back/Pelvis: COMMON NORMALS: no CVA tenderness, thoracic and lumbar spine normal to inspection and thoraco-lumbar ROM normal Extremity: COMMON NORMALS: normal to inspection, full ROM and no pedal edema Neuro: COMMON NORMALS: patient oriented x3 SENSORIUM/ORIENTATION: Yes alert Skin: SKIN IMAGES (MALE): 1. Area of red blistering rash that extends from posterior to anterior, likely along a dermatome. 2. RASHES: rashes noted Course 2 Vital Signs: Vital signs: Vital Signs Temperature 98.0 F 11/25/24 14:12 Pulse Rate 114 H 11/25/24 14:12 Respiratory Rate 16 11/25/24 14:12 Blood Pressure 146/79 11/25/24 14:12 Pulse Oximetry 97 11/25/24 14:12 Oxygen Delivery Me thod Room Air 11/25/24 14:12 MDM - Skin/Abscess/Foreign Bdy Medicial Decision Making Patient appears to have a episode of shingles. Denies prior event. Have started in the last week. We are going to start him on Valtrex to hopefully lessen his symptoms. I explained to the patient that this would not cure it but rather lessen the intensity. First dose given here in the emergency department and prescription sent to his pharmacy. No radiology studies performed this visit Discharge Plan Discharge Patient Disposition: Home Clinical Impression: Shingles Condition: Stable Prescriptions: New valacyclovir [Valtrex] 1 gram tablet 1,000 mg PO Q8H 7 Days Qty: 21 0RF No Action Novolog FlexPen U-100 Insulin 100 unit/mL (3 mL) insulin pen 10 unit SUBCUT TID Qty: 15 10RF Rx Instructions: maximum 40 units/day glipizide 10 mg tablet 10 mg PO DAILY Qty: 90 3RF (DME) Dexcom G7 Treating Machine Operator Misc See Rx Instructions .Route Qty: 1 0RF Rx Instructions: As directed (DME) nebulizer, tubing, supplies See Rx Instructions .Route .MEDSUPPLY Qty: 1 0RF Rx Instructions: As directed ipratropium-albuterol 0.5 mg-3 mg(2.5 mg base)/3 mL solution for nebulization 3 ml inhalation Q6H PRN (Reason: wheezing) Qty: 360 6RF sildenafil 25 mg tablet See Rx Instructions .ROUTE .COMPLEX Qty: 30 0RF Dose Instruction: TAKE ONE TABLET BY MOUTH daily NEEDED 30 minutes TO FOUR hours before activity, no more THAN FOUR tablets in 24 hours Rx Instructions: TAKE ONE TABLET BY MOUTH daily NEEDED 30 minutes TO FOUR hours before activity, no more THAN FOUR tablets in 24 hours levofloxacin 750 mg tablet 750 mg PO DAILY 7 Days Qty: 7 0RF ipratropium bromide 0.02 % solution 2.5 ml inhalation Q6H PRN (Reason: shortness of breath or wheezing) Qty: 75 2RF (DME) Diabetic shoes See Rx Instructions .Route .MEDSUPPLY Qty: 1 0RF Rx Instructions: As directed (DME) blood-glucose meter Mis See Rx Instructions .MEDSUPPLY Qty: 1 0RF Rx Instructions: Use as directed for checking blood sugar (DME) Blood Glucose Test Strip See Rx Instructions .MEDSUPPLY Qty: 200 12RF Rx Instructions: Use as directed with glucometer to check blood sugar (DME) lancets Mis See Rx Instructions .MEDSUPPLY Qty: 200 12RF Rx Instructions: Use as directed to prick skin for blood sugar checks alcohol swabs Pads, Medicated 1 pad topical DIRECTED Qty: 200 12RF Rx Instructions: Use as directed to clean skin prior to finger stick or medication injection (DME) lancets [OneTouch Delica Plus Lancet] 33 gauge misc See Rx Instructions .ROUTE .COMPLEX Qty: 100 2RF Dose Instruction: USE DIRECTED Rx Instructions: USE DIRECTED insulin glargine [Lantus Solostar U-100 Insulin] 100 unit/mL (3 mL) insulin pen 50 unit SUBCUT BID Qty: 30 3RF Breztri Aerosphere 160-9-4.8 mcg/actuation HFA aerosol inhaler 2 inh inhalation BID Qty: 10.7 6RF atorvastatin 40 mg tablet See Rx Instructions .ROUTE .COMPLEX Qty: 90 0RF Dose Instruction: TAKE 1 TABLET BY MOUTH EVERY DAY Rx Instructions: TAKE 1 TABLET BY MOUTH EVERY DAY pregabalin 75 mg capsule 75 mg PO BID Qty: 60 2RF (DME) Pen [place] See Rx Instructions .Route .MEDSUPPLY Qty: 200 1RF Rx Instructions: As directed (DME) Dexcom G7 Sensor Device See Rx Instructions .ROUTE .COMPLEX Qty: 3 0RF Dose Instruction: USE DIRECTED Rx Instructions: USE DIRECTED albuterol sulfate 90 mcg/actuation HFA aerosol inhaler 2 inh inhalation Q4H PRN (Reason: shortness of breath or wheezing) Qty: 8.5 3RF amoxicillin-pot clavulanate [Augmentin] 500-125 mg tablet 1 tab PO BID Qty: 14 0RF Discharge Orders: Discharge ED (Routine); Ordered 11/25/24 Ordered By: Lamar Erickson [facility] [place] Referrals: Pedro Waller MD [Primary Care Provider] - Discharge Diet: Advance as tolerated Discharge Activity: Resume usual activity Patient Instructions: Valacyclovir (By mouth) (Valtrex), Shingles (ED), Opioid Safety, Pain Management Activity Restrictions/Additional Instructions: Please take medication as prescribed Please return to the emergency department for new, concerning, worsening symptoms Coding Level of Care Code ED 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
[2024-11-25] MEDS: valACYclovir 1,000 mg Tablet 1000 MG PO (18:44)
[2024-11-25 18:45] VITALS: BP 139/103; PULSE 107; RESP 16; O2SAT 99
[2024-11-25 19:09] VITALS: BP 146/95; PULSE 104; RESP 16; O2SAT 98
== END 2024-11-25 18:55 | disposition home or self-care (01) ==
PROVIDERS: Emergency Provider Nurse Practitioner; PCP Family Medicine
DX: B02.9 Zoster without complications (principal); Z79.4 Long term (current) use of insulin; E11.42 Type 2 diabetes mellitus with diabetic polyneuropathy; E11.621 Type 2 diabetes mellitus with foot ulcer; L97.509 Non-pressure chronic ulcer of other part of unspecified foot with unspecified severity; J44.9 Chronic obstructive pulmonary disease, unspecified; I25.10 Atherosclerotic heart disease of native coronary artery without angina pectoris
CPT/HCPCS: 99283

== ENCOUNTER → 2025-04-05 16:23 | Outpatient (BNVA) | payer MEDICARE, MEDICAID, SELFPAY | PROVIDERS: PCP Family Medicine; Visit Provider Family Medicine | DX: E11.9 Type 2 diabetes mellitus without complications (principal); N40.0 Benign prostatic hyperplasia without lower urinary tract symptoms; Z12.5 Encounter for screening for malignant neoplasm of prostate | CPT/HCPCS: 80053; 80061; 83036; 84153; 84439; 84443; 85025 ==

== ENCOUNTER → 2025-04-20 08:28 | Outpatient (BNVA) | payer MEDICARE, MEDICAID, SELFPAY | PROVIDERS: PCP Family Medicine; Visit Provider Internal Medicine | DX: E11.9 Type 2 diabetes mellitus without complications (principal); E78.00 Pure hypercholesterolemia, unspecified | CPT/HCPCS: 99214 ==

== ENCOUNTER → 2025-05-03 11:18 | Outpatient (BNVA) | payer MEDICARE, MEDICAID, SELFPAY | PROVIDERS: PCP Family Medicine; Visit Provider Internal Medicine | DX: E11.9 Type 2 diabetes mellitus without complications (principal); E78.00 Pure hypercholesterolemia, unspecified | CPT/HCPCS: 36415; 80053; 82947; 84681; 86337; 86341; 99214 ==

== ENCOUNTER 2025-06-08 12:03 | Outpatient (CLI) | payer MEDICARE, MEDICAID, SELFPAY ==
--- NOTE | 2025-06-08 12:00 | CT_ITS ---
WS: [id number] LDCT LUNG CANCER SCREENING HISTORY: screening TECHNIQUE: Axial imaging performed from the apices to 1 cm below the costophrenic angles. Coronal and sagittal reformats are submitted with axial MIP series. All CT scans at [facility] use at least one of these dose optimization techniques: automated exposure control; mA and/or kV adjustment per patient size (includes targeted exams where dose is matched to clinical indication); or iterative reconstruction. DLP: 51.22 mGy.cm DIvol: Mean CTDIvol: 1.00 (mGy) COMPARISON: 11/27/2022 Diagnostic quality: Satisfactory Lungs: Moderate centrilobular emphysema. Micronodule posterior RIGHT upper lobe, 2 mm, image 53 series 5. There are additional scattered peripheral micronodules throughout both lungs. There are no nodules greater than 5 mm. No endobronchial lesions. Heart: Normal size heart with no pericardial effusion.. Mild increased pericardial fat. Minimal scattered coronary artery calcifications. Other findings: Benign-appearing mediastinal and hilar lymph nodes. No adrenal mass. CT/CT lung screening [id number] IMPRESSION: LUNG-RADS: 2-Benign Appearance or Behavior FOLLOW UP: 12 Month: Continue annual screening with LDCT OTHER FINDINGS (S MODIFIER): None.
== END 2025-06-08 12:04 | disposition home or self-care (01) ==
LOC: RAD 12:04
PROVIDERS: PCP Family Medicine; Visit Provider Family Medicine
DX: Z12.2 Encounter for screening for malignant neoplasm of respiratory organs (principal); F17.219 Nicotine dependence, cigarettes, with unspecified nicotine-induced disorders; E11.9 Type 2 diabetes mellitus without complications; J43.2 Centrilobular emphysema; R91.8 Other nonspecific abnormal finding of lung field
CPT/HCPCS: 71271

== ENCOUNTER → 2025-07-10 09:56 | Outpatient (BNVA) | payer MEDICARE, MEDICAID, SELFPAY | PROVIDERS: PCP Family Medicine; Visit Provider Internal Medicine | DX: E11.9 Type 2 diabetes mellitus without complications (principal); E78.00 Pure hypercholesterolemia, unspecified | CPT/HCPCS: 99214 ==